=== PATIENT | male | born 1955 | race Caucasian/White ===

== ENCOUNTER 2018-11-24 16:25 | Inpatient (IN) ==
[2018-11-24 17:50] LABS: Basophils # 0.1 K/mcL (0.0-0.2); Eosinophils # 0.4 K/mcL (0.0-0.6); Hematocrit 24.7 % (37.5-50.1); Immature Granulocytes % 0.7 % (0-4); Lymphocytes # 1.8 K/mcL (0.6-4.6); Lymphocytes % 31.6 %; Mean Corpuscular HGB Conc 32.4 g/dL (31.6-35.5); Mean Corpuscular Volume 98.8 fL (83.0-100.0); Mean Platelet Volume 10.9 fL (9.4-12.4); Monocytes # 0.6 K/mcL (0.0-1.3); Monocytes % 10.3 %; Neutrophils # 2.9 K/mcL (1.6-8.9); Red Cell Distribution Width 17.9 % (11.5-14.5); Segmented Neutrophils % 50.4 %; White Blood Count 5.8 K/mcL (4.3-11.1)
[2018-11-24 17:51] LABS: Platelet Count 94 K/mcL (140-400)
--- NOTE | 2018-11-24 17:56 | Emergency Department Note ---
Disposition Clinical Impression: History of esophageal varices Cirrhosis Qualifiers: Hepatic cirrhosis type: other cirrhosis Qualified Code(s): K74.69 - Other cirrhosis of liver Anemia Qualifiers: Anemia type: unspecified type Qualified Code(s): D64.9 - Anemia, unspecified Disposition: Admitted As Inpatient Condition: Fair Time of Disposition: 19:47 Recheck wound or abnormal lab - General Chief Complaint: ED Recheck/Abnormal Lab/Rx Stated Complaint: Abnormal labs Time Seen by Provider: 11/24/18 17:08 Source: patient Mode of arrival: ambulatory Limitations: no limitations Nursing Notes Reviewed: Yes Vital Signs Reviewed: Yes - History of Present Illness HPI Narrative: 63-year-old male history of cirrhosis liver failure presents to the emergency department with low hemoglobin that is symptomatically says he felt weak and mor e tired over the last few months. He was was to have a heart catheterization done this week only got labs and she is anemic they are repeat labs he still is showing anemia so they canceled it. Primary care: Recommended he come here for further evaluation as he is anemic and there is no known source at this time. He said he is not having chest pain but is short of breath whenever he is walking and he did fail a stress test as whether setting up for the outpatient heart catheterization. He has not noticed any rectal bleeding any melena. He has not been vomiting up any blood or coughing up any blood. He said he does not have any bleeding that he knows of. Does not believe that he has bad kidney function as well. Patient otherwise has no other complaints at this time. - Related Data Home Medications Medication Instructions Recorded Confirmed Aspirin 81 mg PO DAILY 07/07/16 11/24/18 Pantoprazole Sodium [Protonix] 40 mg PO BID 07/07/16 11/24/18 Metoprolol Succinate [Toprol Xl] 25 mg PO DAILY 04/21/18 11/24/18 Rifaximin [Xifaxan] 550 mg PO BID 05/31/18 11/24/18 Loratadine [Allergy Relief] 10 mg PO DAILY 11/24/18 11/24/18 Pravastatin Sodium [Pravachol] 40 mg PO DAILY 11/24/18 11/24/18 Spironolactone [Aldactone] 100 mg PO DAILY 11/24/18 11/24/18 Allergies Allergy/AdvReac Type Severity Reaction Status Date / Time Wcsmzjj-Dhu-Bog Reductase Allergy Cramping Verified 11/24/18 16:33 Inhibitor of the [Statins] Muscles All systems ED: reviewed and negative except as stated. Review of Systems: As Per HPI Past Medical History - Past Medical History Attestation: Yes The following information was validated with the patient. Source: patient Medical history: Reports: cirrhosis, coronary artery disease, fibromyalgia, hyperlipidemia, hypertension, liver disease, renal disease Surgical history: Reports: angioplasty/stent, other Psychiatric history: Reports: no psych history - Social History Smoking Status: Current every day smoker Smokeless Tobacco Status: No Alcohol use: Reports: occasionally Drug use: Reports: none Physical Exam - General Limitations: no limitations General appearance: alert, in no apparent distress - Head Head exam: atraumatic, normocephalic, normal inspection - Eye Eye exam: Present: normal appearance, PERRL, EOMI - ENT ENT exam: normal exam, normal oropharynx, mucous membranes moist - Neck Neck exam: Present: normal inspection, full ROM, trachea midline - Chest Chest inspection: Present: normal inspection, symmetric chest wall rise - Respiratory Respiratory exam: Present: normal lung sounds bilaterally - Cardiovascular Cardiovascular exam: Present: regular rate, normal rhythm, normal heart sounds - Abdominal Exam Abdominal exam: Present: soft, Non-Tender, normal bowel sounds. Absent: tenderness, distention, guarding, rebound, rigidity - Rectal Exam Rectal exam: Present: normal inspection - Extremities Exam Extremities exam: Present: normal inspection, full ROM. Absent: tenderness, pedal edema - Back Exam Back exam: Present: normal inspection, full ROM. Absent: tenderness, CVA tenderness (R), CVA tenderness (L) - Neurological Exam Neurological exam: Present: alert, oriented X3 - Skin Skin exam: Present: warm, dry, intact, normal color Course Course Narrative: Patient presents with anemia. His symptomatic as he said he has been lightheaded as well as peaked over the past 2 months. He is scheduled to have a heart catheter here soon due to his feeling of a stress test and worsening shortness of breath and chest pain on exertion. So there is been no changes that she is having continued. There is noticeable rectal bleeding when I examined him. We will get CBC, BMP, type and screen as well as PT/INR. We will also get a Hemoccult. Patient okay with this plan. Disposition pending results Vital Signs Temperature 98.0 F 11/24/18 16:29 Pulse Rate 72 11/24/18 16:29 Respiratory Rate 16 11/24/18 16:29 Blood Pressure 128/60 11/24/18 16:29 O2 Sat by Pulse Oximetry 99 11/24/18 16:29 Temperature 98.4 F 11/24/18 19:39 Pulse Rate 79 11/24/18 19:39 Respiratory Rate 16 11/24/18 19:39 Blood Pressure 111/68 11/24/18 19:39 O2 Sat by Pulse Oximetry 100 11/24/18 18:53 Oxygen Delivery Oxygen Delivery Room Air Recheck wound or abnormal lab - MDM Narrative Medical decision making narrative: Patient here with anemia. He actually went up from 7.8-8.0 from yesterday for his hemoglobin. He was positive on his Hemoccult. He has some type of GI bleed at this time. Does have history of varices but has never bled from them. 2018 they did do a EGD which did show varices but no active bleeding. Did give patient Protonix. Patient has been symptomatic as he says he is lightheaded and feels weak. Bielen is negative for showing bleeding at this time. I spoke with the on-call GI specialist Dr. Fry who states that he would see him in consultation within the hospital and will plan for EGD tomorrow did recommend giving one unit of blood which was ordered here today per also given Protonix as well as Rocephin for possible SBP. Patient okay with this plan. He do not think he is actively bleeding at this time so no octreotide was given. Patient is admitted to the hospitalist in stable condition I spoke with Dr. Blair who agreed to admit the patient. - Medical Records Medical records reviewed: Yes I reviewed the patient's medical records. - Lab Data Lab results reviewed: Yes I reviewed the patient's lab results. Result diagrams: 11/24/18 17:30 11/24/18 17:30 Lab Results 11/24/18 11/24/18 11/24/18 Range/Units 17:30 17:30 17:30 WBC 5.8 (4.3-11.1) K/mcL RBC 2.50 L (4.19-5.50) M/mcL Hgb 8.0 L (12.9-16.9) g/dL Hct 24.7 L (37.5-50.1) % MCV 98.8 (83.0-100.0) fL MCH 32.0 (28.0-33.3) pg MCHC 32.4 (31.6-35.5) g/dL RDW 17.9 H (11.5-14.5) % Plt Count 94 L (140-400) K/mcL MPV 10.9 (9.4-12.4) fL Immature Gran % 0.7 (0-4) % Seg Neutrophils % 50.4 % Lymphocytes % 31.6 % Monocytes % 10.3 % Eosinophils % 6.0 % Basophils % 1.0 % Neutrophils # 2.9 (1.6-8.9) K/mcL Lymphocytes # 1.8 (0.6-4.6) K/mcL Monocytes # 0.6 (0.0-1.3) K/mcL Eosinophils # 0.4 (0.0-0.6) K/mcL Basophils # 0.1 (0.0-0.2) K/mcL PT 17.5 H (9.4-12.1) Seconds INR 1.5 Sodium 137 (136-145) mEq/L Potassium 3.8 (3.5-5.1) mEq/L Chloride 112 H (98-107) mEq/L Carbon Dioxide 20 L (23-29) mEq/L BUN 9 (8-23) mg/dL Creatinine 1.28 (0.70-1.30) mg/dL Est GFR ( Amer) > 60 (> 60) Est GFR (Non-Af Amer) 57 L (> 60) BUN/Creatinine Ratio 7 (6-26) Glucose 137 H (70-105) mg/dL Calculated Osmolality 285 (280-300) Calcium 8.2 L (8.6-10.3) mg/dL Stool Occult Bld Scrn (Negative) Blood Type Antibody Screen Crossmatch 11/24/18 11/24/18 Range/Units 17:30 17:35 WBC (4.3-11.1) K/mcL RBC (4.19-5.50) M/mcL Hgb (12.9-16.9) g/dL Hct (37.5-50.1) % MCV (83.0-100.0) fL MCH (28.0-33.3) pg MCHC (31.6-35.5) g/dL RDW (11.5-14.5) % Plt Count (140-400) K/mcL MPV (9.4-12.4) fL Immature Gran % (0-4) % Seg Neutrophils % % Lymphocytes % % Monocytes % % Eosinophils % % Basophils % % Neutrophils # (1.6-8.9) K/mcL Lymphocytes # (0.6-4.6) K/mcL Monocytes # (0.0-1.3) K/mcL Eosinophils # (0.0-0.6) K/mcL Basophils # (0.0-0.2) K/mcL PT (9.4-12.1) Seconds INR Sodium (136-145) mEq/L Potassium (3.5-5.1) mEq/L Chloride (98-107) mEq/L Carbon Dioxide (23-29) mEq/L BUN (8-23) mg/dL Creatinine (0.70-1.30) mg/dL Est GFR ( Amer) (> 60) Est GFR (Non-Af Amer) (> 60) BUN/Creatinine Ratio (6-26) Glucose (70-105) mg/dL Calculated Osmolality (280-300) Calcium (8.6-10.3) mg/dL Stool Occult Bld Scrn Positive A (Negative) Blood Type O NEGATIVE Antibody Screen NEGATIVE Crossmatch See Detail Attestation Statement - Attestation Attestation: I have seen this patient with the resident physician, I have personally evaluated this patient. I had reviewed the chart and document dictation by the resident physician and aM in agreement with the information documented by the resident physician. Please see documentation by the resident physician for complete chart including past medical history, family medical history, review of systems, current history and physical and laboratory and imaging studies. I was present for all procedures, provided direct supervision for all procedures, was present for the entirety of all procedures and provided direct guidance during the procedures. Please see documentation by the resident phy sician for any procedures performed. I have reviewed all interpretations of EKGs, and reviewed all EKGs performed on patient's as well. I have also reviewed reports of imaging as provided by radiology.
[2018-11-24 17:57] LABS: INR 1.5; Prothrombin Time 17.5 Seconds (9.4-12.1)
[2018-11-24 18:03] LABS: BUN/Creatinine Ratio 7 (6-26); Blood Urea Nitrogen 9 mg/dL (8-23); Calcium 8.2 mg/dL (8.6-10.3); Carbon Dioxide 20 mEq/L (23-29); Chloride 112 mEq/L (98-107); Glucose 137 mg/dL (70-105); Osmolality,Calculated 285 (280-300); Potassium 3.8 mEq/L (3.5-5.1); Sodium 137 mEq/L (136-145); eGFR For African Americans > 60 (> 60); eGFR For Non-African Americans 57 (> 60)
[2018-11-24] MEDS ORDERED: Pantoprazole 40 MG VIAL IVP ONE (18:10)
[2018-11-24] MEDS ORDERED: cefTRIAXone 1,000 MG in Water for inj. (sterile) 10 ML IVP ONE (18:27)
--- NOTE | 2018-11-24 18:56 | Emergency Department Note ---
Disposition Clinical Impression: Cirrhosis, Anemia, History of esophageal varices Disposition: Admitted As Inpatient Condition: Fair Forms: ED Satisfaction Letter Time of Disposition: 18:57 General Adult HPI - General Chief complaint: ED Recheck/Abnormal Lab/Rx Stated complaint: Abnormal labs Time Seen by Provider: 11/24/18 17:08 Source: patient Mode of arrival: ambulatory Limitations: no limitations Nursing Notes Reviewed: Yes Vital Signs Reviewed: Yes - History of Present Illness Pain Scale: 0 - Related Data Home Medications Medication Instructions Recorded Confirmed Aspirin 81 mg PO DAILY 07/07/16 10/12/18 Pantoprazole Sodium [Protonix] 40 mg PO BID 07/07/16 10/12/18 Metoprolol Succinate [Toprol Xl] 25 mg PO DAILY 04/21/18 10/12/18 Cetirizine HCl [24Hour Allergy] 10 mg PO DAILY 04/22/18 10/12/18 Rifaximin [Xifaxan] 550 mg PO BID 05/31/18 10/12/18 Previous Rx's Medication Instructions Recorded Furosemide [Lasix] 20 mg PO DAILY #30 tablet 12/02/17 Allergies Allergy/AdvReac Type Severity Reaction Status Date / Time Hslthbb-Udc-Qqf Reductase Allergy Cramping Verified 11/24/18 16:33 Inhibitor of the [Statins] Muscles Past Medical History - Past Medical History Medical history: Reports: cirrhosis, coronary artery disease, fibromyalgia, hyperlipidemia, hypertension, liver disease, renal disease Surgical history: Reports: angioplasty/stent, other Psychiatric history: Reports: no psych history - Social History Smoking Status: Current every day smoker Smokeless Tobacco Status: No Alcohol use: Reports: occasionally Drug use: Reports: none Physical Exam - General Limitations: no limitations General appearance: alert, in no apparent distress Course Vital Signs Temperature 98.0 F 11/24/18 16:29 Pulse Rate 72 11/24/18 16:29 Respiratory Rate 16 11/24/18 16:29 Blood Pressure 128/60 11/24/18 16:29 O2 Sat by Pulse Oximetry 99 11/24/18 16:29 Temperature 98.0 F 11/24/18 16:29 Pulse Rate 72 11/24/18 16:29 Respiratory Rate 16 11/24/18 16:29 Blood Pressure 128/60 11/24/18 16:29 O2 Sat by Pulse Oximetry 99 11/24/18 16:29 Oxygen Delivery Oxygen Delivery Room Air Medical Decision Making - Lab Data Result diagrams: 11/24/18 17:30 11/24/18 17:30 Lab Results 11/24/18 11/24/18 11/24/18 Range/Units 17:30 17:30 17:30 WBC 5.8 (4.3-11.1) K/mcL RBC 2.50 L (4.19-5.50) M/mcL Hgb 8.0 L (12.9-16.9) g/dL Hct 24.7 L (37.5-50.1) % MCV 98.8 (83.0-100.0) fL MCH 32.0 (28.0-33.3) pg MCHC 32.4 (31.6-35.5) g/dL RDW 17.9 H (11.5-14.5) % Plt Count 94 L (140-400) K/mcL MPV 10.9 (9.4-12.4) fL Immature Gran % 0.7 (0-4) % Seg Neutrophils % 50.4 % Lymphocytes % 31.6 % Monocytes % 10.3 % Eosinophils % 6.0 % Basophils % 1.0 % Neutrophils # 2.9 (1.6-8.9) K/mcL Lymphocytes # 1.8 (0.6-4.6) K/mcL Monocytes # 0.6 (0.0-1.3) K/mcL Eosinophils # 0.4 (0.0-0.6) K/mcL Basophils # 0.1 (0.0-0.2) K/mcL PT 17.5 H (9.4-12.1) Seconds INR 1.5 Sodium 137 (136-145) mEq/L Potassium 3.8 (3.5-5.1) mEq/L Chloride 112 H (98-107) mEq/L Carbon Dioxide 20 L (23-29) mEq/L BUN 9 (8-23) mg/dL Creatinine 1.28 (0.70-1.30) mg/dL Est GFR ( Amer) > 60 (> 60) Est GFR (Non-Af Amer) 57 L (> 60) BUN/Creatinine Ratio 7 (6-26) Glucose 137 H (70-105) mg/dL Calculated Osmolality 285 (280-300) Calcium 8.2 L (8.6-10.3) mg/dL Stool Occult Bld Scrn (Negative) Blood Type Antibody Screen Crossmatch 11/24/18 11/24/18 Range/Units 17:30 17:35 WBC (4.3-11.1) K/mcL RBC (4.19-5.50) M/mcL Hgb (12.9-16.9) g/dL Hct (37.5-50.1) % MCV (83.0-100.0) fL MCH (28.0-33.3) pg MCHC (31.6-35.5) g/dL RDW (11.5-14.5) % Plt Count (140-400) K/mcL MPV (9.4-12.4) fL Immature Gran % (0-4) % Seg Neutrophils % % Lymphocytes % % Monocytes % % Eosinophils % % Basophils % % Neutrophils # (1.6-8.9) K/mcL Lymphocytes # (0.6-4.6) K/mcL Monocytes # (0.0-1.3) K/mcL Eosinophils # (0.0-0.6) K/mcL Basophils # (0.0-0.2) K/mcL PT (9.4-12.1) Seconds INR Sodium (136-145) mEq/L Potassium (3.5-5.1) mEq/L Chloride (98-107) mEq/L Carbon Dioxide (23-29) mEq/L BUN (8-23) mg/dL Creatinine (0.70-1.30) mg/dL Est GFR ( Amer) (> 60) Est GFR (Non-Af Amer) (> 60) BUN/Creatinine Ratio (6-26) Glucose (70-105) mg/dL Calculated Osmolality (280-300) Calcium (8.6-10.3) mg/dL Stool Occult Bld Scrn Positive A (Negative) Blood Type O NEGATIVE Antibody Screen NEGATIVE Crossmatch See Detail Attestation Statement - Attestation Attestation: I have seen this patient with the resident physician, I have personally evaluated this patient. I had reviewed the chart and document dictation by the resident physician and aM in agreement with the information documented by the resident physician. Please see documentation by the resident physician for complete chart including past medical history, family medical history, review of systems, current history and physical and laboratory and imaging studies. I was present for all procedures, provided direct supervision for all procedures, was present for the entirety of all procedures and provided direct guidance during the procedures. Please see documentation by the resident physician for any procedures performed. I have reviewed all interpretations of EKGs, and reviewed all EKGs performed on patient's as well. I have also reviewed reports of imaging as provided by radiology. Patient had presented to the emergency department because he had outpatient labs that showed that he had progressive anemia. He does have a history of chronic liver issues, as well as a history of ulcers in his stomach he does not believe he has ever had esophageal varices he states they have had to inject epinephrine into ulcers before but does not believe he has ever had banding. 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 The patient states his last scope was about a year ago. He has not noticed any black or bloody stool he does endorse some exertional fatigue and exertional s hortness of breath, and is actually supposed to be getting a cardiac catheterization set up. Patient denies any abdominal pain denies fevers or chills denies any other acute concerns. On physical examination he is slightly pale in appearance but no acute distress hemodynamically within acceptable limits. Hemoglobin was 8.0, baseline is usually between 9 and 11, outpatient showed 7.8. Remainder of the laboratory studies were within acceptable limits no elevated be when. Hemoccult testing was positive although normal colored brown stool no melena no gross blood he has had no hematemesis. He was given 1 dose of IV proton pump inhibitor we did review his chart from his most recent scope from about a year ago he did have esophageal varices although has never according to the chart review needed banding, I do not suspect acute variceal bleed as he has a normal BUS and he is hemodynamically within acceptable limits he has no hematemesis and no melena, no indication for octre otide at this time has he does have a document history of varices, he was given one time dose of Rocephin. We spoke with Dr. Fry, this patient's GI doctor, who is comfortable with this patient being admitted he will scope him in the morning. Patient will be admitted to the hospital for further evaluation and management he does recommend initiating blood replacement here in the emergency department as well. Patient was admitted for further management. Total critical care time as provided by myself excluding procedures performed was 30 minutes
[2018-11-24] MEDS ORDERED: 0.9 % Sodium Chloride 500 ML ONE (19:28)
[2018-11-24] MEDS ORDERED: D5% in Lactated Ringers 1,000 ML IVC SCH ×2 (20:45→22:15)
--- NOTE | 2018-11-24 21:32 | Internal Med History&Physical ---
Date of Encounter: 11/24/18 Time of Encounter: 21:29 Internal Medicine - H&P: HPI Chief complaint: fatigue Admitted From: Home Plans for Post Hospital Care: Home History of present illness: Aubrey Gillespie is a 63-year-old man with liver cirrhosis of unclear etiology complicated by portal hypertension, esophageal varices and splenomegaly, hypertension, hyperlipidemia and coronary artery disease. He presents emergency room on referral by his PCP due to lowering hemoglobin levels. He also reported increasing fatigue, weakness and shortness of breath but has not seen overt bleeding. He denies rectal bleeding, melena and hematemesis. Repeat blood work in the ER showed a hemoglobin of 8.0 which is increased from a level of 7.8 yesterday. Stool occult blood test was positive. GI was contacted who recommended that the patient receive a unit of blood and be admitted to undergo endoscopic evaluation in the morning. Her time of my assessment he was lying comfortably in bed in no acute distress reporting feeling well and without complaints. He denies abdominal pain and chest pain. Vitals: Reviewed General: Obese white man lying comfortably in bed in no acute distress. Skin: Warm and dry. HEENT: Moist mucous membranes. + conjunctivae pallor. Neck: No lymphadenopathy. No JVD. No carotid bruits. No palpable thyroid. Chest: Normal thoracic expansion. Normal breath sounds. Clear to auscultation. Heart: Normal S1 & S2; rhythmic. No rubs or murmurs. Abdomen: Lightly distended but soft and nontender to palpation with no peritoneal reaction. Extremities: 2+ pitting pedal edema. Neurological: Awake, alert and oriented to person, place and time. No focal deficits. Psych: Affect appropriate. Assessment/Plan 1. Anemia secondary to GI bleed: Clinically and hemodynamically stable. He has received 1u pRBC and his Hgb will remain above 8.0 which is adequate for him. Will recheck in the morning to ensure stability. 2. GI bleed: No overt bleeding noted. It appears to be chronic and slow seeing how well compensated he has been and not far from his baseline. He has esophageal varices but has not bled form this. He may have other potential sources and will undergo endoscopic evaluation by GI in the morning. Will keep NPO past midnight and place on PPI BID. 3. Liver cirrhosis: He was unable to tolerate furosemide as it made him hypotensive and has only been on spironolactone which has not helped his edematous state. His home medications can be resumed once cleared for PO. 4. CAD: Seen to have a positive stress test and previously had a canceled cath and is rescheduled for this Thursday. Will consult cardiology to assess if it can be done during this admission after medical optimization. Past Med Surg Social Fam HX - Past Medical History Medical history: cirrhosis, coronary artery disease, fibromyalgia, hyperlipidemia, hypertension, liver disease, renal disease Additional medical history: CAD Psychiatric history: no psych history - Past Surgical History Surgical History: angioplasty/stent, other Additional surgical history: EGD, heart cath with stents. - Social History Smoking Status: Current every day smoker Smokeless Tobacco Status: No Alcohol use: occasionally Drug use: none Internal Medicine - H&P: Meds Aspirin 81 mg PO DAILY 07/07/16 [History] Pantoprazole Sodium [Protonix] 40 mg PO BID 07/07/16 [History] Metoprolol Succinate [Toprol Xl] 25 mg PO DAILY 04/21/18 [History] Rifaximin [Xifaxan] 550 mg PO BID 05/31/18 [History] Loratadine [Allergy Relief] 10 mg PO DAILY 11/24/18 [History] Pravastatin Sodium [Pravachol] 40 mg PO DAILY 11/24/18 [History] Spironolactone [Aldactone] 100 mg PO DAILY 11/24/18 [History] Allergy/AdvReac Type Severity Reaction Status Date / Time Qeqhxwv-Iad-Gyk Reductase Allergy Cramping Verified 11/24/18 16:33 Inhibitor of the [Statins] Muscles All Systems PM: A 10-system review of systems was performed and is negative for pertinent findings except as documented above in the HPI. Family history reviewed and foun d non-contributory. - Constitutional Vitals: Temp Pulse Resp BP Pulse Ox 98.4 F 80 17 116/64 100 11/24/18 20:54 11/24/18 20:54 11/24/18 20:54 11/24/18 20:54 11/24/18 20:54 Exam: . Internal Med - H&P Results - Labs CBC & Chem 7: 11/24/18 17:30 11/24/18 17:30 Labs: Short CBC 11/24/18 Range/Units 17:30 WBC 5.8 (4.3-11.1) K/mcL Hgb 8.0 L (12.9-16.9) g/dL Hct 24.7 L (37.5-50.1) % Plt Count 94 L (140-400) K/mcL Neutrophils # 2.9 (1.6-8.9) K/mcL BMP 11/24/18 17:30 Sodium 137 Potassium 3.8 Chloride 112 H Carbon Dioxide 20 L BUN 9 Creatinine 1.28 Glucose 137 H Calcium 8.2 L - Time Spent With Patient Total time spent is greater than 50% in coordination of care (as documented) at patient's floor/unit and/or counseling patient: Greater than 35 minutes
[2018-11-25 05:16] LABS: Basophils % 1.1 %; Mean Corpuscular HGB Conc 32.9 g/dL (31.6-35.5)
[2018-11-25 05:18] LABS: Basophils # 0.1 K/mcL (0.0-0.2); Eosinophils # 0.3 K/mcL (0.0-0.6); Eosinophils % 6.3 %; Hematocrit 23.7 % (37.5-50.1); Hemoglobin 7.8 g/dL (12.9-16.9); Immature Granulocytes % 0.6 % (0-4); Immature Platelets 2.8 % (1.1-6.1); Lymphocytes # 1.6 K/mcL (0.6-4.6); Lymphocytes % 35.1 %; Mean Corpuscular Hemoglobin 32.6 pg (28.0-33.3); Mean Corpuscular Volume 99.2 fL (83.0-100.0); Mean Platelet Volume 11.1 fL (9.4-12.4); Monocytes # 0.6 K/mcL (0.0-1.3); Monocytes % 13.4 %; Red Blood Count 2.39 M/mcL (4.19-5.50); Red Cell Distribution Width 17.8 % (11.5-14.5); Segmented Neutrophils % 43.5 %; White Blood Count 4.6 K/mcL (4.3-11.1)
[2018-11-25] MEDS: Pantoprazole 40 MG VIAL IVP SCH ×2 (05:21→17:01)
[2018-11-25 05:37] LABS: BUN/Creatinine Ratio 6 (6-26); Blood Urea Nitrogen 9 mg/dL (8-23); Carbon Dioxide 21 mEq/L (23-29); Chloride 111 mEq/L (98-107); Glucose 124 mg/dL (70-105); Osmolality,Calculated 290 (280-300); Platelet Count 74 K/mcL (140-400); Potassium 3.9 mEq/L (3.5-5.1); Sodium 140 mEq/L (136-145); eGFR For African Americans > 60 (> 60); eGFR For Non-African Americans 51 (> 60)
--- NOTE | 2018-11-25 08:08 | Event Note ---
Date of Encounter: 11/25/18 Time of Encounter: 08:04 - Cardiology Event Note Cardiology aware that patient is admitted for anemia. Out-pt LHC ordered for abnormal stress test. Noted GI consulted. Patient will need GI evaluation before we can determine if LHC can be done. No urgent need for LHC. Please call with questions.
[2018-11-25 09:01] LABS: Alanine Aminotransferase 10 Units/L (7-52); Albumin 2.2 g/dL (3.5-5.7); Albumin/Globulin Ratio 0.9 (1.1-2.2); Alkaline Phosphatase 143 Units/L (34-104); Aspartate Amino Transferase 29 Units/L (13-39); Bilirubin,Direct 1.4 mg/dL (0.0-0.2); Bilirubin,Indirect 2.6 mg/dL (0.0-1.2); Globulin 2.5 g/dL (2.4-3.5); Total Protein 4.7 g/dL (6.4-8.9)
[2018-11-25] MEDS ORDERED: Propofol 500 MG/50 ML INFUS..BTL ONE (12:53)
[2018-11-25] MEDS ORDERED: Lidocaine -MPF 2% 2 ML VIAL ONE (12:53)
--- NOTE | 2018-11-25 13:04 | Gastroenterology Consult Note ---
Date of Encounter: 11/25/18 Time of Encounter: 09:30 (0) - Assessment and plan (1) Non-alcoholic cirrhosis Current Visit: No Status: Chronic Assessment and plan: MELD-Na 19 and Child-Bonner class C. AFP 9 on 05/08/2017. Recommend 2-4 bowel movements per day, use lactulose as needed. Start Rifaximin 550 mg twice a day. Check AFP and liver ultrasound. Complete EGD. Lifestyle Changes: 1. Total abstinence from alcohol including social drinking. 2. No smoking. 3. Gradual loss of weight. 4. Drink at least 3 cups of coffee due to its antioxidant effects in the liver, it reduces risk of HCC and advance fibrosis. 5. If needed, use less than 2 g/day of Tylenol (in divided doses). 6. Vaccination for Hep A, B, Pneumococcus if not already received and yearly influenza vaccination by PCP. 7. Avoid NSAIDS as can cause kidney damage. 8. Avoid benzodiazepines and other sedatives such as anti-histamines, narcotics etc. as can cause encephalopathy or confusion. 9. Take a late carbohydrate meal supplement as it reduces glucose production from protein breakdown and thus improves nutrition. 10. In cirrhosis, statins are safe to use and also improve portal hypertension and decrease risk of HCC. 11. Screening: Hepatocellular cancer screening: US of liver and AFP every 6 months (2) Anemia Current Visit: Yes Status: Acute Assessment and plan: Hgb 7.8 on 11/23, 8 on admission, and 7.8 this AM. Continue to monitor CBC daily and transfuse PRBC as needed. Plan for EGD today to r/o esophagitis, gastritis, duodenitis, PUD, MW tear, or AVM. Keep patient NPO. Qualifiers: Anemia type: unspecified type Qualified Code(s): D64.9 - Anemia, unspecif ied (3) History of esophageal varices Current Visit: Yes Status: Acute - Time Spent With Patient Total time spent is greater than 50% in coordination of care (as documented) at patient's floor/unit and/or counseling patient: GI History of Present Illness - Data of Consult Patient: known to practice within the last 3 years Consult date: 11/25/18 Requesting Physician: Yana Montes De Oca MD - Consult Narrative Reason for consult: GI bleed, hx varices, cirrhosis History of present illness: Mr. Gillespie is a 63 year old male with PMHx of cirrhosis, CAD, fibromyalgia, HLD, HTN, who was sent to the ED by his PCP due to anemia with Hgb 7.8 on 11/23. He complains of fatigue and shortness of breath. He denies any melena, hematochezia, hematemesis, or coffee-ground emesis. On admission, Hgb 8 with MCV 98.8 and today Hgb 7.8 with MCV 99.2. Fecal occult blood test positive on admission. Patient with histoyr of cirrhosis. He denies alcohol use. No confusion. He reports having 2 BM daily. Procedures: EGD 08/24/2017 Dr. Fry: Concern for Macario's esophagus biopsies negative, chronic gastritis, grade 1 esophageal varices. NSAIDs: ASA Anticoagulation: None Past Med Surg Social Fam HX - Past Medical History Medical history: cirrhosis, coronary artery disease, fibromyalgia, hyperlipidemia, hypertension, liver disease, renal disease Additional medical history: CAD Psychiatric history: no psych history - Past Surgical History Surgical History: angioplasty/stent, other Additional surgical history: EGD, heart cath with stents x3. - Social History Smoking Status: Current every day smoker Packs per day: 1/2 Smokeless Tobacco Status: No Alcohol use: occasionally Drug use: none - Gastrointestinal Gastrointestinal: Present: as per HPI - Constitutional Constitutional: as per HPI - EENT Eyes: as per HPI Ears: Present: as per HPI Nose, mouth and throat: Present: as per HPI - Cardiovascular Cardiovascular ROS: Present: as per HPI - Respiratory Respiratory IM: Present: as per HPI - Genitourinary Genitourinary: Absent: change in color, Urinary frequency - Neurological ROS Neurological GI: Present: as per HPI - Hematologic/Lymphatic Hematologic/Lymphatic pediatric: Present: as per HPI - Musculoskeletal Musculoskeletal ROS GI: Present: as per HPI - Integumentary Integumentary GI: Present: as per HPI - Psychiatric ROS Psychiatric GI: Present: as per HPI - Endocrine Endocrine IM: Present: as per HPI - Constitutional Vitals: Temp Pulse Resp BP Pulse Ox 98.2 F 81 16 102/66 99 11/25/18 10:51 11/25/18 10:51 11/25/18 10:51 11/25/18 10:51 11/25/18 10:51 General appearance: Present: cooperative, A&O X 3, no acute distress, answers questions appropriately - Head Head exam: Present: atraumatic, normocephalic - Eye Eye exam: Present: normal appearance, sclera anicteric - ENT ENT exam: Present: mucous membranes dry - Neck Neck exam general surgery: Present: normal inspection, trachea midline - Respiratory Respiratory exam: Present: CTAB. Absent: rales, rhonchi, wheezes - Cardiovascular Cardiovascular exam: Present: RRR, +S1, +S2 - GI/Abdominal GI/Abdominal exam: Present: soft, no peritoneal signs. Absent: distended, firm, guarding, tenderness - Rectal Rectal exam: Present: deferred - Extremities Exam Extremities exam: Present: warm - Neurological Exam Neurological exam: Present: no focal deficits - Psychiatric Psychiatric exam: Present: normal affect, normal mood - Skin Skin exam: Present: dry, intact, normal color, warm Results - Labs CBC & Chem 7: 11/25/18 04:51 11/25/18 04:51 Labs: Last Result 11/25/18 04:51 Calcium 8.0 L Entire Visit 11/25/18 11/25/18 04:51 04:51 Hgb 7.8 L Hct 23.7 L Total Bilirubin 4.0 H AST 29 ALT 10 - ABG ABG results: PT/INR, D-dimer PT 17.5 Seconds (9.4-12.1) H 11/24/18 17:30 Consult Discharge Plan - Plan Referrals: Afshan Olson DO [Primary Care Provider] -
--- NOTE | 2018-11-25 13:13 | Anesthesia Evaluation PreOp ---
Date of Encounter: 11/25/18 Time of Encounter: 14:00 - Past History Planned Operation: EGD Cardiac History: AL, HTN, Hyperlipidemia, Cardiac Stent (stentx 3 in 2004) Pulmonary History: Smoker (45 years), Snore TECHNOLOGY DIRECTOR History: Denies Any Significant HX Other Medical History: Hepatic (cirrhosis), Renal, Diabetes Type II (borderline), GERD Anesthesia History: No Prior Anesthetic Complications, Past Anesthesia Alcohol Use: occasionally Drug use: none Medications and Allergies Aspirin 81 mg PO DAILY 07/07/16 [History] Pantoprazole Sodium [Protonix] 40 mg PO BID 07/07/16 [History] Metoprolol Succinate [Toprol Xl] 25 mg PO DAILY 04/21/18 [History] Rifaximin [Xifaxan] 550 mg PO BID 05/31/18 [History] Loratadine [Allergy Relief] 10 mg PO DAILY 11/24/18 [History] Pravastatin Sodium [Pravachol] 40 mg PO DAILY 11/24/18 [History] Spironolactone [Aldactone] 100 mg PO DAILY 11/24/18 [History] Allergy/AdvReac Type Severity Reaction Status Date / Time Loxxlwq-Hwq-Emb Reductase Allergy Cramping Verified 11/24/18 16:33 Inhibitor of the [Statins] Muscles - Meds/Allergy Pre-op Review Medications Reviewed: Yes Allergies Reviewed: Yes Beta Blockers on Current Med List: Yes If Beta Blockers taken, Date/Time (Last Dose taken): 11/23/2018 Anesthesia Results - Labs 11/25/18 04:51 11/25/18 04:51 - Imaging EKG: report reviewed (01/07/2018 Sinus rhythm Limb lead reversal suggested Recommend repeat ECG) Additional studies: 10/22/2018 Stress Impression: Perfusion imaging was positive for infarct. There is a small sized fixed perfusion defect which is moderate in intensity in the basal inferior segment, no defininte ischemia. Exercise ECG was positive for ischemia. Exercise capacity was fair. Normal hemodynamic response. Patient had no chest pain with stress. Gated EF = 66%. The LV is dilated. There is no evidence of TID. Ordering physician notified by eCW 08/03/2018 Echo Impressions: Normal LV function with concentric LVH. Mild MR and TR Dilated LA and RA Anesthesia Exam Vital Signs/O2 Sat, Most Current Temp Pulse Resp BP Pulse Ox 98.2 F 81 16 102/66 99 11/25/18 10:51 11/25/18 10:51 11/25/18 10:51 11/25/18 10:51 11/25/18 10:51 Height: 5'10"/1.78m Weight: 229 lbs/104 kg NPO (# of Hours): 8 Pain Scale: 0 Pain Scale Used: Numeric (1 - 10) - HEENT Pupil (Motor): EOMI Mallampati: II Teeth: Edentulous Oral Opening: Greater than 3 - TECHNOLOGY DIRECTOR LOC: Oriented TECHNOLOGY DIRECTOR Motor: Normal RUE, Normal LUE, Normal RLE, Normal LLE, Normal Face TECHNOLOGY DIRECTOR Sensory: Normal: RUE, LUE, RLE, LLE, Face - Cardiac Rhythm: Regular Murmur: None - Pulmonary Breath Sounds: bilateral Clear Respiratory Effort: Symmetrical Anesthesia Assess/Plan ASA Score: 4 Level of consciousness: Cooperative, Oriented, Tranquil Anesthetic Plan: MAC Monitoring Plan: Standard Monitors
[2018-11-25] MEDS ORDERED: 0.9 % Sodium Chloride 500 ML IVC SCH (14:00)
--- NOTE | 2018-11-25 15:31 | Internal Med Progress Note ---
Hospitalist Progress Note - Encounter Date of Encounter: 11/25/18 Time of Encounter: 15:00 - Subjective Interval History: No acute events. Patient waiting for endoscopy. He has no complainrs. Denies chest pain and SOB. - Exam Vitals: Temp Pulse Resp BP Pulse Ox 36.8 C 82 16 151/66 100 11/25/18 13:58 11/25/18 13:58 11/25/18 13:58 11/25/18 13:58 11/25/18 13:58 Exam: Patient not in distress. Moist oral mucosa. Lung paredes clear on auscultation Heart rate normal with regular rhythm, no murmurs Abdomens soft and nontender No pedal edema - Assessment and Plan (1) Gastrointestinal bleed Current Visit: Yes Status: Acute (2) Anemia Current Visit: Yes Status: Acute (3) Cirrhosis Current Visit: Yes Status: Acute (4) CAD (coronary artery disease) Current Visit: No Status: Chronic - Summary of Assessment and Plan Summary of Assessment and Plan: Aubrey Gillespie is a 63-year-old man with liver cirrhosis of unclear etiology complicated by portal hypertension, esophageal varices and splenomegaly, hypertension, hyperlipidemia and coronary artery disease. He presents emergency room on referral by his PCP due to lowering hemoglobin levels. He also reported increasing fatigue, weakness and shortness of breath but has not seen overt bleeding. He denies rectal bleeding, melena and hematemesis. Repeat blood work in the ER showed a hemoglobin of 8.0 which is increased from a level of 7.8 yesterday. Stool occult blood test was positive. GI was contacted who recommended that the patient receive a unit of blood and be admitted to undergo endoscopic evaluation in the morning. Her time of my asses sment he was lying comfortably in bed in no acute distress reporting feeling well and without complaints. He denies abdominal pain and chest pain. Assessment/Plan 1. Anemia secondary to GI bleed: Clinically and hemodynamically stable. He has received 1u pRBC and his Hgb will remain above 8.0 which is adequate for him. Will recheck in the morning to ensure stability. 2. GI bleed: No overt bleeding noted. It appears to be chronic and slow seeing how well compensated he has been and not far from his baseline. He has esophageal varices but has not bled form this. He may have other potential sources and will undergo endoscopic evaluation by GI in the morning. Will keep NPO past midnight and place on PPI BID. 3. Liver cirrhosis: He was unable to tolerate furosemide as it made him hypotensive and has only been on spironolactone which has not helped his edematous state. His home medications can be resumed once cleared for PO. 4. CAD: Seen to have a positive stress test and previously had a canceled cath and is rescheduled for this Thursday. Will consult cardiology to assess if it can be done during this admission after medical optimization. - Time Spent with Patient Total time spent is greater than 50% in coordination of care (as documented) at patient's floor/unit and/or counseling patient: Internal Medicine: Result - Labs CBC & Chem 7: 11/25/18 04:51 11/25/18 04:51 Labs: Short CBC 11/24/18 11/25/18 Range/Units 17:30 04:51 WBC 5.8 4.6 (4.3-11.1) K/mcL Hgb 8.0 L 7.8 L (12.9-16.9) g/dL Hct 24.7 L 23.7 L (37.5-50.1) % Plt Count 94 L 74 L (140-400) K/mcL Neutrophils # 2.9 2.0 (1.6-8.9) K/mcL BMP 11/24/18 11/25/18 17:30 04:51 Sodium 137 140 Potassium 3.8 3.9 Chloride 112 H 111 H Carbon Dioxide 20 L 21 L BUN 9 9 Creatinine 1.28 1.41 H Glucose 137 H 124 H Calcium 8.2 L 8.0 L Liver Function 11/25/18 Range/Units 04:51 Total Bilirubin 4.0 H (0.3-1.0) mg/dL Direct Bilirubin 1.4 H (0.0-0.2) mg/dL AST 29 (13-39) Units/L ALT 10 (7-52) Units/L Alkaline Phosphatase 143 H (34-104) Units/L Albumin 2.2 L (3.5-5.7) g/dL - ABG Interpretation ABG results: PT/INR, D-dimer PT 17.5 Seconds (9.4-12.1) H 11/24/18 17:30 Consult Discharge Plan - Plan Referrals: Afshan Olson, DO [Primary Care Provider] - (2) Anemia Qualifiers: Anemia type: unspecified type Qualified Code(s): D64.9 - Anemia, unspecified (3) Cirrhosis Qualifiers: Hepatic cirrhosis type: other cirrhosis Qualified Code(s): K74.69 - Other cirrhosis of liver (4) CAD (coronary artery disease) Qualifiers: Coronary Disease-Associated Artery/Lesion type: unspecified vessel or lesion type [place] vs. transplanted heart: unspecified whether [place] or transplanted heart Associated angina: with unspecified angina Qualified Code(s): I25.119 - Atherosclerotic heart disease of [place] coronary artery with unspecified angina pectoris
[2018-11-26] MEDS: Pantoprazole 40 MG VIAL IVP SCH (05:32)
[2018-11-26 05:37] LABS: Immature Granulocytes % 0.4 % (0-4); Mean Platelet Volume 11.4 fL (9.4-12.4)
[2018-11-26 05:38] LABS: Basophils # 0.1 K/mcL (0.0-0.2); Basophils % 1.3 %; Eosinophils # 0.2 K/mcL (0.0-0.6); Hematocrit 23.9 % (37.5-50.1); Immature Platelets 2.9 % (1.1-6.1); Lymphocytes # 1.6 K/mcL (0.6-4.6); Lymphocytes % 32.6 %; Mean Corpuscular HGB Conc 33.5 g/dL (31.6-35.5); Mean Corpuscular Hemoglobin 32.7 pg (28.0-33.3); Mean Corpuscular Volume 97.6 fL (83.0-100.0); Monocytes # 0.6 K/mcL (0.0-1.3); Monocytes % 11.6 %; Red Blood Count 2.45 M/mcL (4.19-5.50); Red Cell Distribution Width 17.7 % (11.5-14.5); Segmented Neutrophils % 49.1 %; White Blood Count 4.8 K/mcL (4.3-11.1)
[2018-11-26 05:55] LABS: BUN/Creatinine Ratio 7 (6-26); Blood Urea Nitrogen 9 mg/dL (8-23); Calcium 7.9 mg/dL (8.6-10.3); Carbon Dioxide 20 mEq/L (23-29); Chloride 111 mEq/L (98-107); Glucose 75 mg/dL (70-105); Osmolality,Calculated 281 (280-300); Potassium 3.9 mEq/L (3.5-5.1); Sodium 137 mEq/L (136-145); eGFR For African Americans > 60 (> 60); eGFR For Non-African Americans 60 (> 60)
[2018-11-26 05:57] LABS: Neutrophils # 2.4 K/mcL (1.6-8.9); Platelet Count 65 K/mcL (140-400)
--- NOTE | 2018-11-26 09:03 | Cardiology Consult Note ---
<Mike Mora - Last Filed: 11/26/18 09:32> Date of Encounter: 11/26/18 Time of Encounter: 08:54 Assessment and Plan (1) CAD (coronary artery disease) Current Visit: No Status: Chronic H/o CAD and prior PCI in 2005. Patient presents with anemia and is being treated for acute GI bleed. [facility] recently ordered for abnormal stress test. Stress test 10/22/18- exercise ECG positive for ischemia with downsloping ST depression in the inferior leads and V3-V6. There is an inferior infarct with mild ritesh infarct ischemia. EF 66%. TTE 08/03/18- EF normal, mild LVH and diastolic dysfunction. Moderate LAE, moderate CHELLY. Mild MR/TR. Discussed with . With acute GI bleed we will defer LHC right now. Patient agrees with plan. Out-pt f/u to discuss doing in future if anemia/bleeding resolves. Continue medical management. Start asa if okay with GI. Start statin and bb. Qualifiers: Coronary Disease-Associated Artery/Lesion type: unspecified vessel or lesion type [place] vs. transplanted heart: unspecified whether [place] or transplanted heart Associated angina: with unspecified angina Qualified Code(s): I25.119 - Atherosclerotic heart disease of [place] coronary artery with unspecified angina pectoris (2) SOB (shortness of breath) Current Visit: Yes Status: Acute Likely multifactoral in setting of acute anemia. States symptoms improved after blood trasfusion. Possible acute on chronic diastolic CHF. Only mild diastolic function. Check BNP. High sodium diet per patient. Low sodium discussed. Consider PRN lasix if needed. Discussion w patient/family: The assessment and plan as outlined above was discussed with the patient and/or family members who expressed understanding and agreement. All questions were answered. Thank you for involving us in the care of your patient. Please call with any questions. History of Present Illness Consult date: 11/26/18 Requesting physician: Ciera Blair Consult reason: [facility] today out-pt scheduled for abnormal stress Chief complaint: SOB History of present illness: Mr. Gillespie is a 63 year old male with past medical history significant for CAD s/p prior PCI in 2005, liver cirrhosis, esophogeal varicies, HTN, HLD, and DM type II who was sent to the hospital for acute anemia. Cardiology consulted due to patient being scheduled for LHC today in out patient setting. Hgb 7.8 prior to admission. Stool guiac was positive. EGD completed and showed esophogeal varicies with bleeding. Patient received clipping. 1 unit of blood g iven. Hgb now 8.0. LHC ordered in the out-pt setting by Dr. Vázquez for abnormal stress test. He c/o SOB with exertion and BLE edema. It is noted his lasix was discontinued due to hypotension. He denies chest pain. Past Med Surg Social Fam HX - Past Medical History Medical history: cirrhosis, coronary artery disease, fibromyalgia, hy perlipidemia, hypertension, liver disease, renal disease Additional medical history: CAD Psychiatric history: no psych history - Past Surgical History Surgical History: angioplasty/stent, other Additional surgical history: EGD, heart cath with stents x3. - Social History Smoking Status: Current every day smoker Packs per day: 1/2 Smokeless Tobacco Status: No Alcohol use: occasionally Drug use: none Medications and Allergies Aspirin 81 mg PO DAILY 07/07/16 [History] Pantoprazole Sodium [Protonix] 40 mg PO BID 07/07/16 [History] Metoprolol Succinate [Toprol Xl] 25 mg PO HS 04/21/18 [History] Rifaximin [Xifaxan] 550 mg PO BID 05/31/18 [History] Loratadine [Allergy Relief] 10 mg PO DAILY 11/24/18 [History] Spironolactone [Aldactone] 100 mg PO DAILY 11/24/18 [History] Allergy/AdvReac Type Severity Reaction Status Date / Time Hucllhl-Uwg-Hgd Reductase Allergy Cramping Verified 11/25/18 16:16 Inhibitor of the [Statins] Muscles All Systems Review: The remainder of the systems were reviewed and are negative Physical Examination Vital Signs, Last 4 Hours Temp Pulse Resp BP Pulse Ox 11/26/18 08:01 98.1 F 91 18 148/54 99 General: Conversant, No Apparent Distress HEENT: Atraumatic, Normocephaly, Mucus Membranes Moist Neck: No JVD, Normal carotid pulses Cardiac: Reg Rate and Rhythm, Normal S1 and S2, No Murmur Lungs: Normal Breath Sounds, No Wheeze, Rales, Rhonchi Neuro: Alert and responsive, No focal deficits noted Abdomen: Soft, Non-Tender Skin: No rashes noted on visualized skin Musculoskeletal: No Chest Wall Tenderness Extremities: No Clubbing, No Cyanosis, Normal Pulses, Other (1+ ankle edema) Results 11/26/18 04:57 11/26/18 04:57 Lab Results 11/25/18 11/26/18 11/26/18 04:51 04:57 04:57 WBC 4.8 Hgb 8.0 L Hct 23.9 L Plt Count 65 L Sodium 137 Potassium 3.9 Chloride 111 H Carbon Dioxide 20 L BUN 9 Creatinine 1.23 Glucose 75 Calcium 7.9 L Total Bilirubin 4.0 H AST 29 ALT 10 Alkaline Phosphatase 143 H - Imaging and Cardiology Stress Test: report reviewed Echo: report reviewed - EKG Interpretation EKG results cardiology: personally reviewed Consult Discharge Plan - Plan Referrals: Afshan Olson, [Primary Care Provider] - <Bakari Barrera - Last Filed: 11/26/18 12:30> Date of Encounter: 11/26/18 - Attending Attestation I have personally performed a face to face evaluation on this patient. I have reviewed and agree with the care plan. History and Exam by me shows: 63-year-old male history of abnormal stress test with preserved ejection fraction presents with severe anemia status post-clipping of esophageal varicies, he is asymptomatic and euvolemic. Consider outpatient LHC as long as patient states asymptomatic. Patient advised if develops symptoms despite improvement in hemoglobin to contact the cardiology department immediately or present to the emergency department for urgent LHC Assessment and Plan Discussion w patient/family: The assessment and plan as outlined above was discussed with the patient and/or family members who expressed understanding and agreement. All questions were answered. Thank you for involving us in the care of your patient. Please call with any questions. History of Present Illness History of present illness: Mr. Gillespie is a 63 year old male All Systems Review: The remainder of the systems were reviewed and are negative Physical Examination Vital Signs, Last 4 Hours Temp Pulse Resp BP Pulse Ox 11/26/18 11:03 98.2 F 98 18 145/56 100 Results 11/26/18 04:57 11/26/18 04:57 Lab Results 11/26/18 11/26/18 11/26/18 04:57 04:57 04:57 WBC 4.8 Hgb 8.0 L Hct 23.9 L Plt Count 65 L Sodium 137 Potassium 3.9 Chloride 111 H Carbon Dioxide 20 L BUN 9 Creatinine 1.23 Glucose 75 Calcium 7.9 L B-Natriuretic Peptide 157 H
[2018-11-26 16:04] VITALS: BP 108/64
--- NOTE | 2018-11-26 17:12 | Discharge Summary ---
- NOTES TO OUTPATIENT PROVIDER Notes to Outpatient Provider: Follow up with cardiology for possible left heart cath date and with general surgery for possible cholecystectomy. Orders not resulted at time of discharge: Pending orders 11/25/18 13:13 AFP Tumor Marker Non- Routine 11/27/18 04:00 Basic Metabolic Panel AM 0400 Complete Blood Count [HEME] AM 0400 11/28/18 04:00 Basic Metabolic Panel AM 0400 Complete Blood Count [HEME] AM 0400 Date of Encounter: 11/26/18 Time of Encounter: 08:55 - Discharge Diagnosis (1) Gastrointestinal bleed Priority: Primary Status: Acute Qualifiers: GI bleed type/associated pathology: gastritis Qualified Code(s): K29.51 - Unspecified chronic gastritis with bleeding (2) Anemia Priority: Secondary Status: Acute Qualifiers: Anemia type: unspecified type Qualified Code(s): D64.9 - Anemia, unspecified (3) Cirrhosis Priority: Secondary Status: Acute Qualifiers: Hepatic cirrhosis type: other cirrhosis Qualified Code(s): K74.69 - Other cirrhosis of liver (4) CAD (coronary artery disease) Priority: Secondary Status: Chronic Qualifiers: Coronary Disease-Associated Artery/Lesion type: unspecified vessel or lesion type [place] vs. transplanted heart: unspecified whether [place] or transplanted heart Associated angina: with unspecified angina Qualified Code(s): I25.119 - Atherosclerotic heart disease of [place] coronary artery with unspecified angina pectoris Hospital course: Mr. Gillespie is a 63 year old male who was scheduled for a cardiac cath at [facility] on account of an abnormal stres test. He was however found to be anemic prior to procedure. GI evaluation revealed grade 1 esophageal varices and bleeding in the stomach which required 2 clips on endoscopy. Discharge discussed with: patient, family, case management - Time Spent with Patient Total time spent providing and/or coordinating discharge services: - Discharge Medications Prescriptions: New Ferrous Sulfate 325 mg PO DAILY@0800 #30 tablet Continued Pantoprazole Sodium [Protonix] 40 mg PO BID Aspirin 81 mg PO DAILY Metoprolol Succinate [Toprol Xl] 25 mg PO HS Rifaximin [Xifaxan] 550 mg PO BID Spironolactone [Aldactone] 100 mg PO DAILY Loratadine [Allergy Relief] 10 mg PO DAILY Home Medications: Aspirin 81 mg PO DAILY 07/07/16 [History] Pantoprazole Sodium [Protonix] 40 mg PO BID 07/07/16 [History] Metoprolol Succinate [Toprol Xl] 25 mg PO HS 04/21/18 [History] Rifaximin [Xifaxan] 550 mg PO BID 05/31/18 [History] Loratadine [Allergy Relief] 10 mg PO DAILY 11/24/18 [History] Spironolactone [Aldactone] 100 mg PO DAILY 11/24/18 [History] Ferrous Sulfate 325 mg PO DAILY@0800 #30 tablet 11/26/18 [Rx] Allergies/Adverse Reactions: Allergy/AdvReac Type Severity Reaction Status Date / Time Vspscwg-Ver-Loq Reductase Allergy Cramping Verified 11/25/18 16:16 Inhibitor of the [Statins] Muscles Date of admission: 11/25/18 10:12 Primary care physician: Afshan Olson DO Consults: 11/24/18 18:46 Consult to Gastroenterology [CONS] Stat Consulting Provider: Gastroenterology Claire Reason for Consult: Hx of varices GI bleed Time Notified: 18:46 Call Completed: Yes 11/24/18 21:12 Consult to Cardiology [CONS] Routine Comment: Consulting Provider: Cardiology Claire Reason for Consult: 63 y/o M known to service with CAD and scheduled for cardiac cath on Thursday. Admitted today for fatigue and will be optimized with blood transfusion and endoscopy to assess for any bleeding. Please evaluate possibility of cardiac cath being done now during admission. Call Completed: No - Constitutional Vitals: Temp Pulse Resp BP Pulse Ox 36.8 C 97 20 108/64 97 11/26/18 16:02 11/26/18 16:02 11/26/18 16:02 11/26/18 16:02 11/26/18 16:02 Exam: Patient not in distress. Moist oral mucosa. 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
== END 2018-11-26 18:00 | disposition home or self-care (01) | DRG 379 ==
LOC: EMEROOARM 16:25 → 2ANU 16:25 → SUATTDRO 19:37 → 2ANU 20:47
PROVIDERS: ADMIT Internal Medicine; ATTEND Internal Medicine

== ENCOUNTER 2018-12-22 00:34 | Observation (INO) ==
[2018-12-22 01:13] LABS: Basophils # 0.1 K/mcL (0.0-0.2); Basophils % 0.8 %; Eosinophils # 0.3 K/mcL (0.0-0.6); Eosinophils % 4.3 %; Hematocrit 26.3 % (37.5-50.1); Hemoglobin 8.6 g/dL (12.9-16.9); Immature Granulocytes % 0.3 % (0-4); Lymphocytes # 1.7 K/mcL (0.6-4.6); Mean Corpuscular HGB Conc 32.7 g/dL (31.6-35.5); Mean Corpuscular Hemoglobin 32.5 pg (28.0-33.3); Mean Corpuscular Volume 99.2 fL (83.0-100.0); Mean Platelet Volume 11.2 fL (9.4-12.4); Monocytes # 0.7 K/mcL (0.0-1.3); Monocytes % 11.4 %; Neutrophils # 3.7 K/mcL (1.6-8.9); Platelet Count 103 K/mcL (140-400); Red Blood Count 2.65 M/mcL (4.19-5.50); Red Cell Distribution Width 17.2 % (11.5-14.5); Segmented Neutrophils % 57.2 %; White Blood Count 6.5 K/mcL (4.3-11.1)
[2018-12-22 01:35] LABS: BUN/Creatinine Ratio 7 (6-26); Blood Urea Nitrogen 10 mg/dL (8-23); Calcium 8.7 mg/dL (8.6-10.3); Carbon Dioxide 18 mEq/L (23-29); Chloride 113 mEq/L (98-107); Glucose 154 mg/dL (70-105); Osmolality,Calculated 288 (280-300); Potassium 3.8 mEq/L (3.5-5.1); Sodium 138 mEq/L (136-145); eGFR For African Americans > 60 (> 60); eGFR For Non-African Americans 51 (> 60)
[2018-12-22 01:36] LABS: Troponin I < 0.03 ng/mL (< 0.04)
[2018-12-22] MEDS ORDERED: Aspirin 81 MG TAB.CHEW PO ONE (01:59)
--- NOTE | 2018-12-22 02:06 | Emergency Department Note ---
Disposition Clinical Impression: Chest pain Qualifiers: Chest pain type: unspecified Qualified Code(s): R07.9 - Chest pain, unspecified Dyspnea Qualifiers: Dyspnea type: unspecified Qualified Code(s): R06.00 - Dyspnea, unspecified Disposition: Admitted As Inpatient Condition: Good Referrals: Afshan Olson DO [Primary Care Provider] - Forms: ED Satisfaction Letter Time of Disposition: 02:11 General Adult HPI - General Chief complaint: ED Chest Pain Stated complaint: Dyspnea Time Seen by Provider: 12/22/18 01:05 Source: patient Mode of arrival: ambulatory Limitations: no limitations Nursing Notes Reviewed: Yes Vital Signs Reviewed: Yes - History of Present Illness HPI Narrative: Patient is a 63-year-old male that presents emergency Department with reports of left shoulder pain as well as shortness of breath. Patient states that he has not had any diaphoresis or nausea. Patient states that he does have a prior history of coronary artery disease and is had 3 prior stents that were placed at [facility]. Patient states that he has no active chest pain at the moment but does feel short of breath. States that the tingling and discomfort radiates down his left arm and feels somewhat similar to when he had prior heart attack events. Patient states that he has had swelling in bilateral lower extremities but this is chronic for him. Patient states that he has taken aspirin but has not taken any nitroglycerin. Patient reports that he had a stress test back in October when his symptoms started and was told that he had an abnormal stress test and would eventually need a catheter. Patient states that his hemoglobin had been low so he was not cleared to have a catheter. Patient states that his symptoms have progressively gotten worse. Pain Scale: 2 - Related Data Home Medications Medication Instructions Recorded Confirmed Aspirin 81 mg PO DAILY 07/07/16 12/22/18 Pantoprazole Sodium [Protonix] 40 mg PO BID 07/07/16 12/22/18 Metoprolol Succinate [Toprol Xl] 25 mg PO HS 04/21/18 12/22/18 Rifaximin [Xifaxan] 550 mg PO BID 05/31/18 12/22/18 Loratadine [Allergy Relief] 10 mg PO DAILY 11/24/18 12/22/18 Spironolactone [Aldactone] 100 mg PO DAILY 11/24/18 12/22/18 Previous Rx's Medication Instructions Recorded Ferrous Sulfate 325 mg PO DAILY@0800 #30 tablet 11/26/18 Allergies Allergy/AdvReac Type Severity Reaction Status Date / Time [id number] Reductase Allergy Cramping Verified 12/22/18 00:59 Inhibitor of the [Statins] Muscles All systems ED: reviewed and negative except as stated. Cardiovascular: Denies: chest pain Respiratory: Reports: dyspnea Gastrointestinal: Denies: abdominal pain, nausea, vomiting Musculoskeletal: Reports: other (Left shoulder and arm discomfort and tingling.) Neurological: Denies: weakness, numbness, paresthesias Past Medical History - Past Medical History Medical history: Reports: cirrhosis, coronary artery disease, fibromyalgia, hyperlipidemia, hypertension, liver disease, renal disease Surgical history: Reports: angioplasty/stent, other Psychiatric history: Reports: no psych history - Social History Smoking Status: Current every day smoker Smokeless Tobacco Status: No Alcohol use: Reports: occasionally Drug use: Reports: none Physical Exam - General Limitations: no limitations General appearance: alert, in no apparent distress - Head Head exam: atraumatic, normocephalic - Eye Eye exam: Present: normal appearance, EOMI - Neck Neck exam: Present: normal inspection, full ROM, trachea midline - Respiratory Respiratory exam: Present: normal lung sounds bilaterally, respiratory distress, wheezes - Cardiovascular Cardiovascular exam: Present: regular rate, normal rhythm, normal heart sounds, +S1, +S2 - Abdominal Exam Abdominal exam: Present: soft, Non-Tender, normal bowel sounds - Extremities Exam Extremities exam: Present: other (Edema to bilateral lower extremities.) - Neurological Exam Neurological exam: Present: alert, oriented X3 - Psychiatric Psychiatric exam: Present: normal affect, normal mood - Skin Skin exam: Present: warm, dry, intact Course Vital Signs Temperature 98.7 F 12/22/18 00:38 Pulse Rate 89 12/22/18 00:38 Respiratory Rate 18 12/22/18 00:38 Blood Pressure 125/64 12/22/18 00:38 O2 Sat by Pulse Oximetry 100 12/22/18 00:38 Temperature 98.2 F 12/22/18 01:01 Pulse Rate 84 12/22/18 02:57 Respiratory Rate 20 12/22/18 02:57 Blood Pressure 120/62 12/22/18 02:57 O2 Sat by Pulse Oximetry 100 12/22/18 02:57 Oxygen Delivery Oxygen Delivery Room Air Medical Decision Making - MDM Narrative Medical decision making narrative: Due the patient's into the emergency department with reports of shortness of breath and pain and tingling down into his left arm there is concern for possible cardiac involvement. The patient has a strong history of coronary artery disease requiring stents. Patient was recommended for cardiac catheterization but this was held due to the patient's prior hemoglobin. At this time the patient is chest pain-free. His EKG shows T-wave inversions and mild depressions in lead 2, lead 3 and aVF. The patient did have flipped T waves in lead 2 and aVF on prior EKG on 01/07/18. There is no evidence of STEMI on EKG at this time. Due the patient's risk factors as well as his presenting symptoms I feel is most appropriate for him to be brought into the hospital for further evaluation and management and likely cardiac evaluation. Patient and family are in agreement with this. Patient was given an aspirin here in the emergency department. Patient is currently chest pain-free and did not require any nitroglycerin. Called spoke the admitting hospitalist and she is except the patient their service to patient be admitted to hospital at this time for further evaluation and management. - Medical Records Medical records reviewed: Yes I reviewed the patient's medical records. - Lab Data Lab results reviewed: Yes I reviewed the patient's lab results. Result diagrams: 12/22/18 01:02 12/22/18 01:02 Lab Results 12/22/18 12/22/18 Range/Units 01:02 01:02 WBC 6.5 (4.3-11.1) K/mcL RBC 2.65 L (4.19-5.50) M/mcL Hgb 8.6 L (12.9-16.9) g/dL Hct 26.3 L (37.5-50.1) % MCV 99.2 (83.0-100.0) fL MCH 32.5 (28.0-33.3) pg MCHC 32.7 (31.6-35.5) g/dL RDW 17.2 H (11.5-14.5) % Plt Count 103 L (140-400) K/mcL MPV 11.2 (9.4-12.4) fL Immature Gran % 0.3 (0-4) % Seg Neutrophils % 57.2 % Lymphocytes % 26.0 % Monocytes % 11.4 % Eosinophils % 4.3 % Basophils % 0.8 % Neutrophils # 3.7 (1.6-8.9) K/mcL Lymphocytes # 1.7 (0.6-4.6) K/mcL Monocytes # 0.7 (0.0-1.3) K/mcL Eosinophils # 0.3 (0.0-0.6) K/mcL Basophils # 0.1 (0.0-0.2) K/mcL Sodium 138 (136-145) mEq/L Potassium 3.8 (3.5-5.1) mEq/L Chloride 113 H (98-107) mEq/L Carbon Dioxide 18 L (23-29) mEq/L BUN 10 (8-23) mg/dL Creatinine 1.41 H (0.70-1.30) mg/dL Est GFR ( Amer) > 60 (> 60) Est GFR (Non-Af Amer) 51 L (> 60) BUN/Creatinine Ratio 7 (6-26) Glucose 154 H (70-105) mg/dL Calculated Osmolality 288 (280-300) Calcium 8.7 (8.6-10.3) mg/dL Troponin I < 0.03 (< 0.04) ng/mL - Radiology Data Radiology results reviewed: Yes I reviewed the patient's radiology results. Chest X-Ray 12/22/18 00:44 IMPRESSION: Possible left upper lobe pulmonary infiltrate. D/ / Radhames Muir MD / Radhames Muir MD Interpreting Provider: Radhames Muir MD - EKG Data EKG #1 EKG attestation: Yes I reviewed and interpreted this EKG. EKG results narrative: EKG shows heart rate of 82 bpm, CA interval 140, curious duration 88, QTc 409. Sinus rhythm. T-wave inversions and mild depressions in lead 2, lead 3 and aVF. The patient did have flipped T waves in lead 2 and aVF on prior EKG on 01/07/18. There is no evidence of STEMI on EKG at this time.
--- NOTE | 2018-12-22 03:12 | Emergency Department Note ---
Disposition Clinical Impression: Chest pain Qualifiers: Chest pain type: unspecified Qualified Code(s): R07.9 - Chest pain, unspecified Dyspnea Qualifiers: Dyspnea type: unspecified Qualified Code(s): R06.00 - Dyspnea, unspecified Disposition: Admitted As Inpatient Condition: Good Referrals: Afshan Olson DO [Primary Care Provider] - Forms: ED Satisfaction Letter Time of Disposition: 02:11 General Adult HPI - General Chief complaint: ED Chest Pain Stated complaint: Dyspnea Time Seen by Provider: 12/22/18 01:05 Source: patient Mode of arrival: ambulatory Limitations: no limitations Nursing Notes Reviewed: Yes Vital Signs Reviewed: Yes - History of Present Illness Pain Scale: 2 - Related Data Home Medications Medication Instructions Recorded Confirmed Aspirin 81 mg PO DAILY 07/07/16 12/22/18 Pantoprazole Sodium [Protonix] 40 mg PO BID 07/07/16 12/22/18 Metoprolol Succinate [Toprol Xl] 25 mg PO HS 04/21/18 12/22/18 Rifaximin [Xifaxan] 550 mg PO BID 05/31/18 12/22/18 Loratadine [Allergy Relief] 10 mg PO DAILY 11/24/18 12/22/18 Spironolactone [Aldactone] 100 mg PO DAILY 11/24/18 12/22/18 Previous Rx's Medication Instructions Recorded Ferrous Sulfate 325 mg PO DAILY@0800 #30 tablet 11/26/18 Allergies Allergy/AdvReac Type Severity Reaction Status Date / Time [id number] Reductase Allergy Cramping Verified 12/22/18 00:59 Inhibitor of the [Statins] Muscles Cardiovascular: Denies: chest pain Respiratory: Reports: dyspnea Gastrointestinal: Denies: abdominal pain, nausea, vomiting Musculoskeletal: Reports: other (Left shoulder and arm discomfort and tingling.) Neurological: Denies: weakness, numbness, paresthesias Past Medical History - Past Medical History Medical history: Reports: cirrhosis, coronary artery disease, fibromyalgia, hyperlipidemia, hypertension, liver disease, renal disease Surgical history: Reports: angioplasty/stent, other Psychiatric history: Reports: no psych history - Social History Smoking Status: Current every day smoker Smokeless Tobacco Status: No Alcohol use: Reports: occasionally Drug use: Reports: none Physical Exam - General Limitations: no limitations General appearance: alert, in no apparent distress Course Vital Signs Temperature 98.7 F 12/22/18 00:38 Pulse Rate 89 12/22/18 00:38 Respiratory Rate 18 12/22/18 00:38 Blood Pressure 125/64 12/22/18 00:38 O2 Sat by Pulse Oximetry 100 12/22/18 00:38 Temperature 98.2 F 12/22/18 01:01 Pulse Rate 84 12/22/18 02:57 Respiratory Rate 20 12/22/18 02:57 Blood Pressure 120/62 12/22/18 02:57 O2 Sat by Pulse Oximetry 100 12/22/18 02:57 Oxygen Delivery Oxygen Delivery Room Air Medical Decision Making - Medical Records Medical records reviewed: Yes I reviewed the patient's medical records. - Lab Data Lab results reviewed: Yes I reviewed the patient's lab results. Result diagrams: 12/22/18 01:02 12/22/18 01:02 Lab Results 12/22/18 12/22/18 Range/Units 01:02 01:02 WBC 6.5 (4.3-11.1) K/mcL RBC 2.65 L (4.19-5.50) M/mcL Hgb 8.6 L (12.9-16.9) g/dL Hct 26.3 L (37.5-50.1) % MCV 99.2 (83.0-100.0) fL MCH 32.5 (28.0-33.3) pg MCHC 32.7 (31.6-35.5) g/dL RDW 17.2 H (11.5-14.5) % Plt Count 103 L (140-400) K/mcL MPV 11.2 (9.4-12.4) fL Immature Gran % 0.3 (0-4) % Seg Neutrophils % 57.2 % Lymphocytes % 26.0 % Monocytes % 11.4 % Eosinophils % 4.3 % Basophils % 0.8 % Neutrophils # 3.7 (1.6-8.9) K/mcL Lymphocytes # 1.7 (0.6-4.6) K/mcL Monocytes # 0.7 (0.0-1.3) K/mcL Eosinophils # 0.3 (0.0-0.6) K/mcL Basophils # 0.1 (0.0-0.2) K/mcL Sodium 138 (136-145) mEq/L Potassium 3.8 (3.5-5.1) mEq/L Chloride 113 H (98-107) mEq/L Carbon Dioxide 18 L (23-29) mEq/L BUN 10 (8-23) mg/dL Creatinine 1.41 H (0.70-1.30) mg/dL Est GFR ( Amer) > 60 (> 60) Est GFR (Non-Af Amer) 51 L (> 60) BUN/Creatinine Ratio 7 (6-26) Glucose 154 H (70-105) mg/dL Calculated Osmolality 288 (280-300) Calcium 8.7 (8.6-10.3) mg/dL Troponin I < 0.03 (< 0.04) ng/mL - Radiology Data Radiology results reviewed: Yes I reviewed the patient's radiology results. Chest X-Ray 12/22/18 00:44 IMPRESSION: Possible left upper lobe pulmonary infiltrate. D/ / Radhames Muir MD / Radhames Muir MD Interpreting Provider: Radhames Muir MD - EKG Data EKG #1 EKG attestation: Yes I reviewed and interpreted this EKG. EKG results narrative: EKG shows normal sinus rhythm with ventricular rate of 82. New inferior T-wave inversions in lead [address] segment elevation. No arrhythmia or ectopy. Attestation Statement - Attestation Attestation: I, Pan Eric MD, personally evaluated this patient and discussed their management with the resident physician. I reviewed the resident's note and agree with the documented findings, medical decision making, and plan of care. I reviewed the residents documentation and agree with the residents assessment and plan of care. I have personally had face to face time with the patient. I personally supervised and was present for the klein/critical portions of the following procedures completed by the resident: EKG interpretation. 63-year-old male presents to the emergency department with a complaint of intermittent episodes of shortness of breath which have been worsening over the past 2 months. Patient had an abnormal stress test about 2 months ago and was scheduled for a cardiac catheter however he was found to be very anemic and was having some GI bleeding. Catheter was postponed due to this and is still awaiting clearance for his other medical issues before he can have the cardiac catheter. He states the shortness of breath has gotten progressively worse and tonight he developed some left upper chest pain and scapular pain with tingling down the left arm. No nausea or vomiting. No diaphoresis. No palpitations. Patient does have a history of coronary artery disease and has had coronary artery stents placed in the past. He states the symptoms are similar to the symptoms he had at that time. On examination patient is a well-developed well-nourished male in no acute distress. He is alert and oriented 3. There is no cyanosis or diaphoresis. Chest is nontender to palpation. Breath sounds are clear and equal bilaterally. Heart regular rate and rhythm with a 2/6 systolic murmur. Abdomen is soft and nontender with normal bowel sounds. There is 2+ pitting edema of the lower extremities bilaterally which patient states is chronic but may be a little worse than usual. EKG shows normal sinus rhythm with ventricular rate of 82. New inferior T-wave inversions in lead [address] segment elevation. No arrhythmia or ectopy. Chest x-ray showed some possible left upper lobe infiltrates. I reviewed the film myself and did not see any obvious pneumonia. Patient has no symptoms of pneumonia. Labs reviewed. Hemoglobin stable. Renal function at baseline. Troponin negative. The hospitalist, Dr. Loera, was consulted and accepted admission of the patient.
[2018-12-22] MEDS ORDERED: Naloxone 0.4 MG/ML INJ IVP PRN (07:12)
[2018-12-22] MEDS ORDERED: Ondansetron 4 MG/2 ML VIAL IVP PRN (07:12)
--- NOTE | 2018-12-22 08:19 | Internal Med History&Physical ---
<Aashish Harris A - Last Filed: 12/22/18 13:57> Date of Encounter: 12/22/18 Time of Encounter: 08:18 Internal Medicine - H&P: HPI Chief complaint: SOB Admitted From: Emergency Dept History of present illness: Mr. Gillespie is a 63 year old male who presents for shortness of breath and L shoulder and chest pain. Pt states he was sitting in a chair last night at 930p and developed an achey pain in his chest and arm. Pain was constant and with tingling in his left arm. Denies aggravating or relieving factors. Pt has history of 50 pack year smoking history, previous CAD with 3 stents. This pain was consistent with previous episode of angina. Stress test in Oct 2018 showed abnormalities though awaiting stent for Hgb recovery from recent history of variceal bleed d/t cirrohsis of unknown etiology (possible hemochromatosis, previous HemOnc consult- genetic workup not significant for mutation). Pt was admitted in November 2018 for variceal bleeding, EGD showed grade 1 esophageal varices with active bleeding requiring banding and clipping x2. Pt denies current chest/shoulder pain. Pain not reproducible with palpation. Denies nausea, vomiting, abdominal pain. Denies NSAID use. Denies blood in stool, dark stools, vomiting blood. ED Course: Pt presented with chest/shoulder pain and SOB. T:98.2 HR:78 RR:20 BP:120/75 SpO2:98%. Pt received ASA in ED. EKG noted to have depressions in II, III, avF with mild T wave inversions. Troponins negative. Hgb noted 8.6, stable from previous months. CXR nonacute. Pt reports feeling well now. Pt sitting in bed at time of interview. Admits to leg swelling at this time, otherwise without acute complaints. States he is no longer experiencing chest/shoulder pain. Denies numbness/tingling. Vitals at time of interview: HR:80 RR:16 BP:115/61 SpO2:99% Past Medical Hx: CAD; cirrhosis (variceal bleeding, hepatic encephalopathy); anemia (2/2 variceal bleed); tobacco abuse; obesity Past Surgical Hx: admits clot removal in L groin at age 6; prior heart cath 2005 Social Hx: admits 1/4 ppd, weening down tobacco use x50 year; denies history or current alcohol use or illicit drugs Family Hx: + for tumors/cancer; negative for DM, cardiac involvement Prior cardiac involvement: 3 stents placed in [place] in 2005; Oct 2018 abnormal stress, unable to stent d/t concerns of antiplatelet in setting of grade 1 variceal bleeding, awaiting for Hgb recovery; TTE 08/03/18 normal EF. FULL CODE Past Med Surg Social Fam HX - Past Medical History Medical history: cirrhosis, coronary artery disease, fibromyalgia, GI bleed (esophageal variceal bleed), hyperlipidemia, hypertension, liver disease, renal disease Additional medical history: CAD Psychiatric history: no psych history - Past Surgical History Surgical History: angioplasty/stent, other Additional surgical history: Heart cath with stents x3 (2005). EGD. Blood clot removal (age 6). - Social History Smoking Status: Current every day smoker Packs per day: 05/14, weening down Smokeless Tobacco Status: No Alcohol use: occasionally Drug use: none - Family History Father Cause of : bleeding tumor in chest Internal Medicine - H&P: Meds Pantoprazole Sodium [Protonix] 40 mg PO BID 07/07/16 [History] Metoprolol Succinate [Toprol Xl] 25 mg PO HS 04/21/18 [History] Rifaximin [Xifaxan] 550 mg PO BID 05/31/18 [History] Loratadine [Allergy Relief] 10 mg PO DAILY 11/24/18 [History] Aspirin [Adult Aspirin Regimen] 81 mg PO QAM 12/22/18 [History] Pravastatin Sodium [Pravachol] 40 mg PO DAILY 12/22/18 [History] Spironolactone 50 mg PO DAILY 12/22/18 [History] Allergy/AdvReac Type Severity Reaction Status Date / Time ferrous sulfate Allergy See Verified 12/22/18 20:14 Comments [id number] Reductase Allergy Cramping Verified 12/22/18 20:14 Inhibitor of the [Statins] Muscles All Systems PM: A 10-system review of systems was performed and is negative for pertinent findings except as documented above in the HPI. - Constitutional Constitutional: no chills, no fever(s), no night sweats - EENT Eyes: no change in vision, no discharge, no pain, no photophobia Ears: no ear discharge, no ear pain, no tinnitus Nose, mouth and throat: epistaxis (occasional, no recent), no dysphagia, no nasa l discharge, no neck pain, no sore throat - Cardiovascular Cardiovascular ROS IM: as per HPI, chest pain, dyspnea, edema - Respiratory Respiratory: dyspnea, no cough, no hemoptysis, no chest congestion - Gastrointestinal Gastrointestinal: as per HPI, no abdominal pain, no change in bowel habits, no coffee ground emesis, no diarrhea, no hematemesis, no hematochezia, no melena, no nausea, no vomiting - Genitourinary Genitourinary ROS male: no dysuria, no flank pain, no hematuria - Musculoskeletal Musculoskeletal ROS IM: tingling (occasional tingling during chest/shoulder pain), no back pain, no numbness - Integumentary Integumentary IM: no rash, no unusual bruising - Neurological Neurological ROS: as per HPI, tingling (occasional tingling during chest/shoulder pain), no confusion, no convulsions, no focal weakness, no headache(s), no numbness, no tremor(s) - Psychiatric Psychiatric: no confusion - Endocrine Endocrine IM: no fatigue - Hematologic/Lymphatic Hematologic/Lymphatic: no easy bruising - Allergic/Immunologic Allergic/Immunologic: no wheezing - Constitutional Vitals: Temp Pulse Resp BP Pulse Ox 98.2 F 76 16 115/61 98 12/22/18 07:48 12/22/18 07:48 12/22/18 07:48 12/22/18 07:48 12/22/18 07:48 Exam: Gen: Well-appearing, no acute distress, conversant Head: Normocephalic, atraumatic Eyes: PERRL, EOMI, anicteric ENT: MMM, oropharyx without erythema or drainage Neck: Supple, no LAD, no stiffness or restricted ROM, no tracheal deviation Heart: RRR, normal S1, S2; no m/r/g Lungs: Soft crackles in lower lung paredes. CTAB, good air exchange b/l. No wheezing. GI: Soft, nontender abdomen. BSx4. no organomegaly appreciated. : No suprapubic tenderness Back: No obvious stepoffs or deformities, nontender Ext: +2 pitting edema in LE b/l, otherwise without cyanosis, clubbing. Skin: Warm and dry without rashes Neuro: A&O x4, CN not formally tested but appear grossly intact. Moving all 4 extremities. Sensation in all 4 extremities intact. Psych: Normal affect, no depression or anxiety appreciated. Internal Med - H&P Results - Labs CBC & Chem 7: 12/22/18 01:02 12/22/18 01:02 Labs: Short CBC 12/22/18 Range/Units 01:02 WBC 6.5 (4.3-11.1) K/mcL Hgb 8.6 L (12.9-16.9) g/dL Hct 26.3 L (37.5-50.1) % Plt Count 103 L (140-400) K/mcL Neutrophils # 3.7 (1.6-8.9) K/mcL BMP 12/22/18 01:02 Sodium 138 Potassium 3.8 Chloride 113 H Carbon Dioxide 18 L BUN 10 Creatinine 1.41 H Glucose 154 H Calcium 8.7 Cardiac Enzymes 12/22/18 12/22/18 Range/Units 01:02 07:35 Troponin I < 0.03 < 0.03 (< 0.04) ng/mL - Impressions ITS Impressions Chest X-Ray 12/22/18 00:44 IMPRESSION: Possible left upper lobe pulmonary infiltrate. D/ / Radhames Muir MD / Radhames Muir MD Interpreting Provider: Radhames Muir MD - Assessment and Plan (1) Chest pain Current Visit: Yes Status: Acute Assessment and plan: -likely suspect stable angina, ruled out other cardiac involvement such as unstable angina, coronary spasm, NSTEMI, STEMI, aoritc dissection, esophageal rupture, PTX; less likely esophageal spasm, GERD, musculoskeletal pain -pt presented with chest/shoulder pain and SOB, denies pain at this time, pain not reproducible with palpation, denies n/v/change in stools, no acute complai nts at this time, HR:80 RR:16 BP:115/61 SpO2:99% -50 pack year smoking history with known hx CAD s/p 3 stents placed 2005 -exercise stress test 10/22/2018 showed abnormalities positive for ischemia with downsloping ST depression in the inferior leads and V3-V6; old inferior infarct with mild ritesh infarct ischemia -awaiting stent for Hgb recovery from recent gastric bleed and varices d/t cirrohsis of unknown etiology -TTE 08/03/18 EF 66%, mild LVH and dd -recieved ASA 81mg x4 PO -EKG noted to have depressions in II, III, avF with new mild T wave inversions -Troponins negative x2 -CXR nonacute -Cr 1.4 near baseline -continue telemetry -continue ASA 81mg PO QD -continue home medications Toprol XL 25mg PO HS -hold Spironlactone to decrease possible SOFÍA contribution -daily CBC and BMP -trend troponins -PT/INR, hepatic panel, and iron studies ordered -diet: NPO for EGD then cardiac diet, no fluid restriction -consult to cardiology for possible cath pending GI evaluation -to discuss need for stent/antiplatelets in setting of previous variceal bleeding, Hgb stable 8.6. -FULL CODE Qualifiers: Chest pain type: chest pain due to myocardial ischemia Ischemic chest pain type: unspecified angina pectoris type Qualified Code(s): I25.9 - Chronic ischemic heart disease, unspecified (2) Cirrhosis Current Visit: No Status: Acute Assessment and plan: -history of non-acloholic cirrohsis of unknown etiology, possible hemochromatosis with previous HemOnc consult, genetic testing showed no mutation though possible variant of undetected HFE -known variceal bleed with resulting anemia, stable -history of hepatic encephalopathy -denies blood in stool, dark stools, vomiting blood -Hg 8.6, stable -to consult GI for EGD in evaluation of varices -PT/INR, LFT panel, and iron studies ordered -will need to discuss possible stent/antiplatelet therapy in setting of varices with history of bleed Qualifiers: Hepatic cirrhosis type: other cirrhosis Qualified Code(s): K74.69 - Other cirrhosis of liver (3) Anemia Current Visit: Yes Status: Chronic Assessment and plan: -anemia secondary to gastric bleeding from prior admission -cirrhosis etiology unknown, possible HFE though HemOnc genetic testing negative, history of non-acloholic cirrhosis -GI consult for further evaluation of esophageal varices prior to cardiac cath -varices seen with previous EGD, clipped intra-operatively -Hg 8.6, stable -continue Fe supplement, will consider colace if constipation -will trend daily CBC and BMP -iron studies pending Qualifiers: Anemia type: unspecified type Qualified Code(s): D64.9 - Anemia, unspecified (4) History of esophageal varices Current Visit: Yes Status: Chronic Assessment and plan: -related to the above -unknown etiology of cirrhosis -consult to GI for further evaluation and management -pending cardiac cath if stable, low risk for bleeding complications -GI for EGD (5) Tobacco abuse Current Visit: Yes Status: Acute Assessment and plan: -1/4 ppd, down from 50 ppy history -patch and gum declined at this time, PRN -encourage smoking cessation (6) Obesity Current Visit: Yes Status: Acute Assessment and plan: -BMI 32 -encourage weight reduction and lifestyle modifications -consult nutrition to assist in weight education Qualifiers: Obesity type: unspecified obesity type Obesity classification: adult class 1 (BMI 30 - 34.9) Serious obesity comorbidity presence: with serious comorbidity Body mass index: BMI 32.0-32.9 Qualified Code(s): E66.9 - Obesity, unspecified; Z68.32 - Body mass index (BMI) 32.0-32.9, adult (7) DVT prophylaxis Current Visit: Yes Status: Acute Assessment and plan: -will hold at this time pending evaluation of esophageal varices -start SCD - Time Spent With Patient Total time spent is greater than 50% in coordination of care (as documented) at patient's floor/unit and/or counseling patient: <Joseph Aguirre - Last Filed: 12/22/18 20:30> Date of Encounter: 12/22/18 Internal Medicine - H&P: HPI History of present illness: Mr. Gillespie is a 63 year old male All Systems PM: A 10-system review of systems was performed and is negative for pertinent findings except as documented above in the HPI. - Constitutional Vitals: Temp Pulse Resp BP Pulse Ox 98.2 F 82 19 112/65 98 12/22/18 19:57 12/22/18 19:57 12/22/18 19:57 12/22/18 19:57 12/22/18 19:57 Internal Med - H&P Results - Labs CBC & Chem 7: 12/22/18 01:02 12/22/18 01:02 Labs: Short CBC 12/22/18 Range/Units 01:02 WBC 6.5 (4.3-11.1) K/mcL Hgb 8.6 L (12.9-16.9) g/dL Hct 26.3 L (37.5-50.1) % Plt Count 103 L (140-400) K/mcL Neutrophils # 3.7 (1.6-8.9) K/mcL BMP 12/22/18 01:02 Sodium 138 Potassium 3.8 Chloride 113 H Carbon Dioxide 18 L BUN 10 Creatinine 1.41 H Glucose 154 H Calcium 8.7 Cardiac Enzymes 12/22/18 12/22/18 12/22/18 Range/Units 01:02 07:35 14:23 Troponin I < 0.03 < 0.03 < 0.03 (< 0.04) ng/mL Liver Function 12/22/18 Range/Units 11:57 Total Bilirubin 4.5 H (0.3-1.0) mg/dL Direct Bilirubin 1.7 H (0.0-0.2) mg/dL AST 29 (13-39) Units/L ALT 13 (7-52) Units/L Alkaline Phosphatase 149 H (34-104) Units/L Albumin 2.5 L (3.5-5.7) g/dL - Impressions ITS Impressions Chest X-Ray 12/22/18 00:44 IMPRESSION: Possible left upper lobe pulmonary infiltrate. D/ / Radhames Muir MD / Radhames Muir MD Interpreting Provider: Radhames Muir MD - Assessment and Plan (1) Chest pain Current Visit: Yes Status: Acute Qualifiers: Chest pain type: chest pain due to myocardial ischemia Ischemic chest pain type: unstable angina pectoris Qualified Code(s): I20.0 - Unstable angina (2) CAD (coronary artery disease) Current Visit: Yes Status: Chronic Qualifiers: Coronary Disease-Associated Artery/Lesion type: [place] artery [place] vs. transplanted heart: [place] heart Associated angina: with unstable angina Qualified Code(s): I25.110 - Atherosclerotic heart disease of [place] coronary ar [place] with unstable angina pectoris (3) Anemia Current Visit: Yes Status: Suspected Qualifiers: Anemia type: iron deficiency Iron deficiency anemia type: chronic blood loss Qualified Code(s): D50.0 - Iron deficiency anemia secondary to blood loss (chronic) (4) Tobacco abuse Current Visit: Yes Status: Acute - Time Spent With Patient Total time spent is greater than 50% in coordination of care (as documented) at patient's floor/unit and/or counseling patient: - Attending Attestation The history, physical exam, and medical decision making was performed by the medical student either while I was physically present and actively involved or I personally re-performed the exam and medical decision making. I have verified the accuracy of the medical student's documentation with regards to the history, physical exam findings, and medical decision making on 12/22/18. Mr Gillespie is 63 y/o male with hx of varices and CAD. He presented to ED with chest pain which resolved spontaneously. He has previous abnormal stress test. Currently he is pain free. Exam: Alert. Comfortable. NC. Mucus membranes dry. Neck supple. Heart reg and distant. Not tachycardic. No wheeze. Abd soft and nontender. No edema. Moves extremities. No rash. I/P 1. Chest pain - hx abnormal stress test. Symptom-free now. Cardiology consulted. 2. Cirrhosis 3. Recent hx esophageal varices - GI consulted today as well. 4. CAD Further diagnoses and plan as above
[2018-12-22] MEDS ORDERED: Aspirin 81 MG TAB.CHEW PO SCH (09:00)
--- NOTE | 2018-12-22 09:56 | Gastroenterology Consult Note ---
<Freddie El - Last Filed: 12/22/18 10:11> Date of Encounter: 12/22/18 Time of Encounter: 09:53 - Assessment and plan (1) Anemia Status: Chronic Assessment and plan: Patient with history of nonalcoholic cirrhosis and coronary artery disease Known esophageal varices demonstrated on previous admission and clipped Known history of chronic anemia associated with esophageal varices Anemia precluded cardiology intervention at last admission for abnormal stress Cardiology evaluation did not occur outpatient as planned due to continued an emia Patient now presents again with cardiac type chest pain and continued anemia GI evaluation was requested to evaluate known varices in anticipation of cardiology intervention Patient has no evidence of bleeding including hematemesis or melena, Hemoccult not performed However due to known varices and continued anemia there is concern for GI bleed Patient is nothing by mouth tentatively scheduled for EGD this afternoon Anemia suspected to be iron deficiency secondary to GI bleed Iron profile ordered and pending this admission to qualify anemia Further recommendations per Dr. Fry Qualifiers: Anemia type: unspecified type Qualified Code(s): D64.9 - Anemia, unspecified (2) Non-alcoholic cirrhosis Status: Chronic Assessment and plan: Patient has known history of nonalcoholic cirrhosis, he does take rifaximin at home Currently no signs of encephalopathy or ascites, he does have known history of varices PT/INR, hepatic panel ordered and pending, last known MELD-Na 19 and Child Bonner class C Continue rifaximin, recommend lactulose as needed for 2-4 bowel movements daily (3) History of esophageal varices Status: Chronic Assessment and plan: Grade 1 esophageal varices demonstrated on previous endoscopy October 2018 Varices were clipped Intra-Op (4) CAD (coronary artery disease) Status: Chronic Assessment and plan: History of coronary artery disease status post PCI in 2005 Recently admitted for abnormal stress test demonstrating inferior ischemia October 2018 Intervention was not performed due to anemia, outpatient evaluation was not completed Patient now returns with cardiac type chest pain and EKG changes correlating w ith inferior ischemia Cardiology consultation pending Qualifiers: Coronary Disease-Associated Artery/Lesion type: unspecified vessel or lesion type [place] vs. transplanted heart: unspecified whether [place] or transplanted heart Associated angina: with unspecified angina Qualified Code(s): I25.119 - Atherosclerotic heart disease of [place] coronary artery with unspecified angina pectoris - Time Spent With Patient Total time spent is greater than 50% in coordination of care (as documented) at patient's floor/unit and/or counseling patient: GI History of Present Illness - Data of Consult Patient: known to practice within the last 3 years Consult date: 12/22/18 Requesting Physician: Joseph Aguirre, DO - Consult Narrative Reason for consult: anemia and known varices History of present illness: Mr. Gillespie is a 63 year old male with a past medical history of nonalcoh olic cirrhosis, coronary artery disease status post PCI, fibromyalgia, hyperlipidemia, hypertension, esophageal varices. Patient was recently admitted here in October 2018 for abnormal stress test and was evaluated by cardiology for possible LHC. However prior to LHC GI evaluation was requested due to patient's known history of cirrhosis and his anemia at that time. Endoscopy was performed during that admission which demonstrated grade 1 esophageal varices which were clipped. Afterwards patient was discharged to follow-up with cardiology outpatient because his hemoglobin was not stable for LHC at that time. He did not receive outpatient cardiology evaluation and is now presenting due to ca rdiac type chest pain. Troponins are negative however the patient is demonstrating inferior region EKG changes consistent with area of ischemia demonstrated on previous abnormal stress test. He also continues to be anemic on presentation, hemoglobin 8.6 on original evaluation. Gastroenterology ev aluation is being requested for possible endoscopy to evaluate known varices for any evidence of bleeding in anticipation of possible LHC this admission. On my evaluation patient confirms this history, confirms home medications of rifaximin and aspirin, denies any NSAID use or alcohol use, denies intravenous drug use or exposure to blood products. He denies any signs of bleeding including hemate mesis or melena or hematochezia. He denies any abdominal pain, nausea or vomiting, abdominal swelling or weight gain. He denies any history of requiring paracentesis for ascites. I explained to him that due to his current complaint of cardiac type chest pain there is consideration for possible cardiology intervention and because of that he may require evaluation with endoscopy to characterize varices or any signs of bleeding because otherwise cardiology cannot initiate antiplatelet therapy or anticoagulation. He stated he understood and agreed with the plan of care. Past Med Surg Social Fam HX - Past Medical History Medical history: cirrhosis, coronary artery disease, fibromyalgia, hyperlipidemia, hypertension, liver disease, renal disease Additional medical history: CAD Psychiatric history: no psych history - Past Surgical History Surgical History: angioplasty/stent, other Additional surgical history: EGD, heart cath with stents x3. - Social History Smoking Status: Current every day smoker Smokeless Tobacco Status: No Alcohol use: occasionally Drug use: none All systems PM: reviewed and no additional remarkable complaints except as stated - Constitutional Vitals: Temp Pulse Resp BP Pulse Ox 98.2 F 76 16 115/61 98 12/22/18 07:48 12/22/18 07:48 12/22/18 07:48 12/22/18 07:48 12/22/18 07:48 General appearance: Present: A&O X 3, no acute distress - Eye Eye exam: Present: EOMI, PERRL, sclera anicteric - Respiratory Respiratory exam: Present: CTAB - Cardiovascular Cardiovascular exam: Present: RRR - GI/Abdominal GI/Abdominal exam: Present: normal bowel sounds, soft, no peritoneal signs. Absent: diminished bowel sounds, firm, guarding, hepatomegaly, splenomegaly, tenderness Additional comments: No signs of ascites or telangiectasias - Extremities Exam Extremities exam: Present: radial pulses palpable and symmetrical Additional comments: Bilateral lower extremity 2+ pitting edema - Skin Skin exam: Present: dry, warm Additional comments: No jaundice Results - Labs CBC & Chem 7: 12/22/18 01:02 12/22/18 01:02 Labs: Last Result 12/22/18 12/22/18 01:02 07:35 Calcium 8.7 Troponin I < 0.03 < 0.03 Entire Visit 12/22/18 01:02 Hgb 8.6 L Hct 26.3 L - Impressions Impressions Chest X-Ray 12/22/18 00:44 IMPRESSION: Possible left upper lobe pulmonary infiltrate. D/ / Radhames Muir MD / Radhames Muir MD Interpreting Provider: Radhames Muir MD Consult Discharge Plan - Plan Instructions: Isosorbide Mononitrate (By mouth) Additional Instructions: Follow up with your PCP for reevaluation in 3-5 days. Have repeat hemoglobin and hematocrit labs drawn in 3 days. Continue taking your regular home medications. Continue to take imdur 30mg daily; a prescription for this has been sent to your pharmacy. Follow up with outpatient GI and cardiology services as scheduled. Return to the emergency department if you develop fevers, chills, dizziness, lightheadedness, weakness, signs of bleeding, or if any new concerns arise. Referrals: Rafael Fry MD [Partnered Physician] - (Referral made, physicians office will contact the patient to schedule a follow-up appointment. ) Afshan Olson DO [Primary Care Provider] - (Referral made, physicians o ffice will call the patient to schedule a follow-up appointment. ) Sabrina Powell DO [Resident] - (Patient wants to follow up with Dr. Powell. Will need reevaluation in 3-5 days. ) Prescriptions: Isosorbide MONOnitrate (24 HR) [Imdur] 30 mg PO DAILY #30 tab.er.24h <Rafael Fry - Last Filed: 01/17/19 08:44> Date of Encounter: 01/17/19 - Time Spent With Patient Total time spent is greater than 50% in coordination of care (as documented) at patient's floor/unit and/or counseling patient: GI History of Present Illness - Data of Consult Requesting Physician: Kenton Mehta MD - Consult Narrative History of present illness: Mr. Gillespie is a 64 year old male with cirrhosis and esophageal varices. Plan EGD. Will need angiogram Past Med Surg Social Fam HX - Family History Father Cause of : bleeding tumor in chest - Constitutional Vitals: Temp Pulse Resp BP Pulse Ox 98.4 F 80 16 124/68 96 12/26/18 11:08 12/26/18 11:08 12/26/18 11:08 12/26/18 11:08 12/26/18 11:08 Results - Labs CBC & Chem 7: 12/26/18 06:57 12/26/18 06:57 - ABG ABG results: PT/INR, D-dimer PT 19.3 Seconds (9.4-12.1) H 12/22/18 11:57
--- NOTE | 2018-12-22 11:49 | Anesthesia Evaluation PreOp ---
<Estuardo Del Cid - Last Filed: 12/22/18 11:47> Date of Encounter: 12/22/18 Time of Encounter: 11:47 - Past History Planned Operation: EGD Cardiac History: HTN, Hyperlipidemia, Cardiac Stent (2004), Other (POSITIVE STRESS TEST, NORMAL EF, CARDIAC KUMAR REPEADTEDLY DELAYED SEC ANEMIA, NORMAL TROPONINS) Pulmonary History: Former smoker Other Medical History: Hepatic (LIVER CIRRHOSIS, WITH ESOPHAGEAL VARICES), Renal (CKD3), Diabetes Type II, Other (CHRONIC BLOOD LOSS ANEMIA) Anesthesia History: No Prior Anesthetic Complications, Past Anesthesia Alcohol Use: occasionally Drug use: none Medications and Allergies Aspirin 81 mg PO DAILY 07/07/16 [History] Pantoprazole Sodium [Protonix] 40 mg PO BID 07/07/16 [History] Metoprolol Succinate [Toprol Xl] 25 mg PO HS 04/21/18 [History] Rifaximin [Xifaxan] 550 mg PO BID 05/31/18 [History] Loratadine [Allergy Relief] 10 mg PO DAILY 11/24/18 [History] Spironolactone [Aldactone] 100 mg PO DAILY 11/24/18 [History] Ferrous Sulfate 325 mg PO DAILY@0800 #30 tablet 11/26/18 [Rx] Allergy/AdvReac Type Severity Reaction Status Date / Time [id number] Reductase Allergy Cramping Verified 12/22/18 00:59 Inhibitor of the [Statins] Muscles - Meds/Allergy Pre-op Review Medications Reviewed: Yes Allergies Reviewed: Yes Anesthesia Results - Labs 12/22/18 01:02 12/22/18 01:02 Anesthesia Exam Vital Signs/O2 Sat/Glucose, Most Recent Temp Pulse Resp BP Pulse Ox 98.3 F 81 16 116/62 99 12/22/18 11:04 12/22/18 11:04 12/22/18 11:04 12/22/18 11:04 12/22/18 11:04 Weight: 103 KG - BMI 33 NPO (# of Hours): 8 - HEENT Mallampati: II Teeth: Edentulous - Cardiac Rhythm: Regular - Pulmonary Breath Sounds: bilateral Clear Anesthesia Assess/Plan ASA Score: 3 Anesthetic Plan: MAC Monitoring Plan: Standard Monitors Recovery Plan: Other <Beatriz Munoz - Last Filed: 12/22/18 13:08> Date of Encounter: 12/22/18 - Past History Cardiac History: [facility] (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 nuclear stress from ), Angina (unstable angina), Other Pulmonary History: Smoker [employer] History: Denies Any Significant HX Other Medical History: Bleeding (bleeding grade 1 varices s/p clipping October 2018 with slowly but steadily improving hgb) - Meds/Allergy Pre-op Review Beta Blockers on Current Med List: Yes (metoprolol) Anesthesia Results - Labs 12/22/18 01:02 12/22/18 01:02 - Imaging EKG: report reviewed, image reviewed (Sinus rhythm Limb lead reversal suggested Recommend repeat ECG) Additional studies: Nuclear stress: Indications: Shortness of breath with exertion Impression: Perfusion imaging was positive for infarct. There is a small sized fixed perfusion defect which is moderate in intensity in the basal inferior segment, no defininte ischemia. Exercise ECG was positive for ischemia. Exercise capacity was fair. Normal hemodynamic response. Patient had no chest pain with stress. Gated EF = 66%. The LV is dilated. There is no evidence of TID. Ordering physician notified by eCW TTE: EV/EV echocardiogram Impressions: Normal LV function with concentric LVH. Mild MR and TR Dilated LA and RA Anesthesia Exam - HEENT Pupil (Motor): Pupils equal Mallampati: II Teeth: Edentulous Oral Opening: Greater than 3 - [employer] LOC: Oriented - Cardiac Rhythm: Regular Murmur: Systolic (low grade) - Pulmonary Breath Sounds: bilateral Clear Respiratory Effort: Symmetrical Anesthesia Assess/Plan ASA Score: 3 Anesthetic Plan: MAC Monitoring Plan: Standard Monitors Recovery Plan: Other
[2018-12-22 12:37] LABS: Albumin 2.5 g/dL (3.5-5.7); Bilirubin,Direct 1.7 mg/dL (0.0-0.2); Bilirubin,Indirect 2.8 mg/dL (0.0-1.2); Bilirubin,Total 4.5 mg/dL (0.3-1.0); Globulin 2.6 g/dL (2.4-3.5); Total Protein 5.1 g/dL (6.4-8.9)
[2018-12-22 12:38] LABS: % Iron Saturation 30 % (20-55); INR 1.7; Iron 84 mcg/dL (65-175); Prothrombin Time 19.3 Seconds (9.4-12.1); Transferrin 200 mg/dL (203-362)
[2018-12-22] MEDS ORDERED: *HR* Propofol 200 MG/20 ML VIAL IVP ONE (12:44)
[2018-12-22] MEDS ORDERED: Propofol 500 MG/50 ML INFUS..BTL ONE (12:49)
[2018-12-22] MEDS: Metoprolol XL (24 HR) Succ 25 MG TAB.ER.24H PO SCH (21:14)
[2018-12-23 05:02] LABS: Immature Granulocytes % 0.4 % (0-4)
[2018-12-23 05:04] LABS: Basophils # 0.1 K/mcL (0.0-0.2); Eosinophils # 0.3 K/mcL (0.0-0.6); Eosinophils % 5.4 %; Hematocrit 25.5 % (37.5-50.1); Hemoglobin 8.2 g/dL (12.9-16.9); Immature Platelets 4.5 % (1.1-6.1); Lymphocytes % 20.3 %; Mean Corpuscular HGB Conc 32.2 g/dL (31.6-35.5); Mean Corpuscular Hemoglobin 32.3 pg (28.0-33.3); Mean Corpuscular Volume 100.4 fL (83.0-100.0); Mean Platelet Volume 11.4 fL (9.4-12.4); Monocytes # 0.5 K/mcL (0.0-1.3); Monocytes % 10.5 %; Neutrophils # 3.1 K/mcL (1.6-8.9); Red Blood Count 2.54 M/mcL (4.19-5.50); Red Cell Distribution Width 17.1 % (11.5-14.5); Segmented Neutrophils % 62.4 %
[2018-12-23 05:09] LABS: Platelet Count 85 K/mcL (140-400)
[2018-12-23 05:19] LABS: Calcium 8.4 mg/dL (8.6-10.3); Potassium 4.2 mEq/L (3.5-5.1)
--- NOTE | 2018-12-23 07:50 | Internal Med Progress Note ---
<Tameka Torres M - Last Filed: 12/23/18 11:42> Hospitalist Progress Note - Encounter Date of Encounter: 12/23/18 Time of Encounter: 08:50 - Subjective Interval History: Mr. Gillespie was examined at bedside today. No acute events overnight. Denied having chest pain, SOB, or shoulder pain at the moment. Described his pain yesterday as new kind of type that he hasn't experienced before; described it as dull, non-radiating pain, altho he felt shoulder discomfort. Pt has no new complaints today; denied fever, chills, fatigue, night sweats, LEE, palpitations, cough, wheezing or N/V/D. - Exam Vitals: Temp Pulse Resp BP Pulse Ox 97.9 F 85 16 97/58 98 12/23/18 07:39 12/23/18 07:39 12/23/18 07:39 12/23/18 07:39 12/23/18 07:39 Exam: Gen: Well-appearing, well-nourished in no acute distress Heart: RRR, normal S1, S2; no m/r/g. normal capillary refill Lungs: Soft crackles in lower lung paredes. CTAB, good air exchange b/l. No wheezing. Head: Normocephalic, atraumatic GI: Soft, round, nontender abdomen. BSx4. no organomegaly appreciated. : No suprapubic tenderness. no renal bruits appreciated. MSK: Edema in LE b/l, otherwise without cyanosis, clubbing. Skin: Warm and dry without rashes; slightly yellow-valente tinge Neuro: A&O x4, CN not formally tested but appear grossly intact. Moving all 4 extremities. Sensation in all 4 extremities intact. Psych: Normal, non-flat affect - Assessment and Plan (1) Chest pain Current Visit: Yes Status: Acute Assessment and Plan: Mr. Gillespie is a 63yo gentleman who p/w non-exertional CP, SOB, and L shoulder pain while sitting on a chair. Pain quality is dull and new to pt. ECG showed new inferior T-wave inversions in lead 3 and aVF, c/o inferior ischemia. Xray showed possible ANNEMARIE pulmonary infiltrate. +stress test 10/2018 for inferior ischemia. Stent delayed for Hgb recovery from recent varcieal bleeds of unk etiology which were clipped and banded. PMH of preserved EF 07/2018 and 3 stents in 2005. - Consult cardiology to guide tx and assess pt - Continue ASA 81mg po qam - Continue metoprolol 25mg po hs - Continue Spironolactone 100mg po qd (2) History of esophageal varices Current Visit: Yes Status: Chronic Assessment and Plan: Hx as above. - Continue Rifaxmin 550mg po bid - Continue PPI and zofran (3) Gastrointestinal bleed Current Visit: No Status: Acute Assessment and Plan: Hx and plan as above. (4) Anemia Current Visit: Yes Status: Chronic Assessment and Plan: 12/23/18 Hgb 8.2 and WNL of pt baseline. Iron studies suggest anemia of chronic disease as opposed to hemochromatosis, altho blood sample was 2+ icteric. Pt total bilirubin 4.5; pt skin had a yellow tinge. -Order and trend h/h; continue to monitor -Per GI, two-week outpatient follow-up and 4 week repeat EGD (5) Non-alcoholic cirrhosis Current Visit: Yes Status: Chronic Assessment and Plan: Probably the reason for variceal bleeds. Pt on rifaximin currently for prophylaxis. Tot bilirubin 4.5, indirect 2.8, direct 1.7; alk phos 149 c/o obstructive bile duct pathology. - Per GI, continue rifaximine, recommend lactulose as needed for 2-4 bowel movements daily, follow up outpatient in 2 weeks discuss further management (6) Obesity Current Visit: Yes Status: Acute Assessment and Plan: BMI 32.1 12/22/18. Probably contributing to NAFLD (7) Hyperbilirubinemia Current Visit: No Status: Acute Assessment and Plan: Likely 2/2 obstructive bile duct pathology. GI consult placed. DVT Prophylaxis: SCD - Time Spent with Patient Total time spent is greater than 50% in coordination of care (as documented) at patient's floor/unit and/or counseling patient: Internal Medicine: Result - Labs CBC & Chem 7: 12/23/18 04:26 12/23/18 04:26 Labs: Short CBC 12/23/18 Range/Units 04:26 WBC 5.0 (4.3-11.1) K/mcL Hgb 8.2 L (12.9-16.9) g/dL Hct 25.5 L (37.5-50.1) % Plt Count 85 L (140-400) K/mcL Neutrophils # 3.1 (1.6-8.9) K/mcL BMP 12/23/18 04:26 Sodium 140 Potassium 4.2 Chloride 114 H Carbon Dioxide 18 L BUN 11 Creatinine 1.45 H Glucose 100 Calcium 8.4 L Cardiac Enzymes 12/22/18 12/22/18 12/22/18 Range/Units 07:35 14:23 19:12 Troponin I < 0.03 < 0.03 < 0.03 (< 0.04) ng/mL Liver Function 12/22/18 Range/Units 11:57 Total Bilirubin 4.5 H (0.3-1.0) mg/dL Direct Bilirubin 1.7 H (0.0-0.2) mg/dL AST 29 (13-39) Units/L ALT 13 (7-52) Units/L Alkaline Phosphatase 149 H (34-104) Units/L Albumin 2.5 L (3.5-5.7) g/dL - ABG Interpretation ABG results: PT/INR, D-dimer PT 19.3 Seconds (9.4-12.1) H 12/22/18 11:57 Consult Discharge Plan - Plan Referrals: Afshan Olson DO [Primary Care Provider] - <Kenton Mehta - Last Filed: 12/23/18 12:40> Hospitalist Progress Note - Encounter Date of Encounter: 12/23/18 - Exam Vitals: Temp Pulse Resp BP Pulse Ox 98.1 F 88 18 101/51 99 12/23/18 11:15 12/23/18 11:15 12/23/18 11:15 12/23/18 11:15 12/23/18 11:15 - Assessment and Plan (1) CAD (coronary artery disease) Current Visit: Yes Status: Chronic (2) Anemia Current Visit: Yes Status: Chronic (3) Chest pain Current Visit: Yes Status: Acute (4) Tobacco abuse Current Visit: Yes Status: Acute - Time Spent with Patient Total time spent is greater than 50% in coordination of care (as documented) at patient's floor/unit and/or counseling patient: Internal Medicine: Result - Labs CBC & Chem 7: 12/23/18 04:26 12/23/18 04:26 Labs: Short CBC 12/23/18 Range/Units 04:26 WBC 5.0 (4.3-11.1) K/mcL Hgb 8.2 L (12.9-16.9) g/dL Hct 25.5 L (37.5-50.1) % Plt Count 85 L (140-400) K/mcL Neutrophils # 3.1 (1.6-8.9) K/mcL BMP 12/23/18 04:26 Sodium 140 Potassium 4.2 Chloride 114 H Carbon Dioxide 18 L BUN 11 Creatinine 1.45 H Glucose 100 Calcium 8.4 L Cardiac Enzymes 12/22/18 12/22/18 Range/Units 14:23 19:12 Troponin I < 0.03 < 0.03 (< 0.04) ng/mL Liver Function 12/22/18 Range/Units 11:57 Total Bilirubin 4.5 H (0.3-1.0) mg/dL Direct Bilirubin 1.7 H (0.0-0.2) mg/dL AST 29 (13-39) Units/L ALT 13 (7-52) Units/L Alkaline Phosphatase 149 H (34-104) Units/L Albumin 2.5 L (3.5-5.7) g/dL - ABG Interpretation ABG results: PT/INR, D-dimer PT 19.3 Seconds (9.4-12.1) H 12/22/18 11:57 - Attending Attestation I examined this patient and my medical decision-making was reviewed with the medical student. I agree with the documented findings, disposition and treatment plan as described except to the extent set forth below. 63 year old male with history of CAD with 3 stents, cirrhosis with history of variceal bleeds presented for left sided shoulder/chest pain and shortness of breath. He has history of abnormal stress test. 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 Troponin negative x4, EKG showed ST depressions and T wave inversions. On exam patient is in no acute distress, does have some pallor to skin, MM dry, heart sounds normal, cardiac sounds normal. Cardiology is consulted, patient may need LHC. BP is on lower/normal limits and renal function slightly worse than baseline, will hold spironolactone for today and re evaluate. Monitor H&H and vitals. <Tameka Torres - Last Filed: 12/23/18 11:42> (1) Chest pain Qualifiers: Chest pain type: chest pain due to myocardial ischemia Ischemic chest pain type: unstable angina pectoris Qualified Code(s): I20.0 - Unstable angina (3) Gastrointestinal bleed Qualifiers: GI bleed type/associated pathology: gastritis Qualified Code(s): K29.51 - Unspecified chronic gastritis with bleeding (4) Anemia Qualifiers: Anemia type: iron deficiency Iron deficiency anemia type: chronic blood loss Qualified Code(s): D50.0 - Iron deficiency anemia secondary to blood loss (chronic) (6) Obesity Qualifiers: Obesity type: unspecified obesity type Obesity classification: adult class 1 (BMI 30 - 34.9) Serious obesity comorbidity presence: with serious comorbidity Body mass index: BMI 32.0-32.9 Qualified Code(s): E66.9 - Obesity, unspecified; Z68.32 - Body mass index (BMI) 32.0-32.9, adult <EddiefredydionyKenton - Last Filed: 12/23/18 12:40> (1) CAD (coronary artery disease) Qualifiers: Coronary Disease-Associated Artery/Lesion type: [place] artery [place] vs. transplanted heart: [place] heart Associated angina: with unstable angina Qualified Code(s): I25.110 - Atherosclerotic heart disease of [place] coronary artery with unstable angina pectoris (2) Anemia Qualifiers: Anemia type: iron deficiency Iron deficiency anemia type: chronic blood loss Qualified Code(s): D50.0 - Iron deficiency anemia secondary to blood loss (chronic) (3) Chest pain Qualifiers: Chest pain type: chest pain due to myocardial ischemia Ischemic chest pain type: unstable angina pectoris Qualified Code(s): I20.0 - Unstable angina
--- NOTE | 2018-12-23 08:29 | Gastroenterology Progress Note ---
<Freddie El - Last Filed: 12/23/18 09:24> Date of Encounter: 12/23/18 Time of Encounter: 08:29 - Assessment and plan (1) Anemia Status: Suspected Assessment and plan: EGD yesterday demonstrated nonbleeding grade 1 esophageal varices and bleeding gastric antral vascular ectasias Antral ectasias were cauterized for hemostasis, see endoscopy report for full details Recommendation for continued medical management, two-week outpatient follow-up and 4 week repeat EGD No further GI intervention anticipated this admission Further recommendations per Dr. Fry Qualifiers: Anemia type: iron deficiency Iron deficiency anemia type: chronic blood loss Qualified Code(s): D50.0 - Iron deficiency anemia secondary to blood loss (chronic) (2) Non-alcoholic cirrhosis Status: Chronic Assessment and plan: Patient has known history of nonalcoholic cirrhosis, he does take rifaximin at home Currently no signs of encephalopathy or ascites, he does have known history of varices last known MELD-Na 19 and Child Bonner class C, current MELD score 21 Continue rifaximin, recommend lactulose as needed for 2-4 bowel movements daily Will follow up outpatient in 2 weeks discuss further management (3) History of esophageal varices Status: Chronic Assessment and plan: Grade 1 esophageal varices demonstrated on previous endoscopy October 2018 Grade 1 esophageal varices redemonstrated on endoscopy 12/22 (4) CAD (coronary artery disease) Status: Chronic Assessment and plan: History of coronary artery disease status post PCI in 2005 Recently admitted for abnormal stress test demonstrating inferior ischemia October 2018 Intervention was not performed due to anemia, outpatient evaluation was not completed Patient now returns with cardiac type chest pain and EKG changes correlating with inferior ischemia Cardiology consultation pending Qualifiers: Coronary Disease-Associated Artery/Lesion type: [place] artery [place] vs. transplanted heart: [place] heart Associated angina: with unstable angina Qualified Code(s): I25.110 - Atherosclerotic heart disease of [place] coronary artery with unstable angina pectoris - Time Spent With Patient Total time spent is greater than 50% in coordination of care (as documented) at patient's floor/unit and/or counseling patient: - Subjective Interval history: No adverse events overnight were acute complaints this morning. I did inform the patient of the results of his EGD including nonbleeding esophageal grade 1 varices and bleeding gastric antral vascular ectasia. I informed him of our recommendation to follow-up in the GI clinic in 2 weeks and to have repeat EGD in 4 weeks. He stated he understood and agreed with the plan of care. - Constitutional Vitals: Temp Pulse Resp BP Pulse Ox 97.9 F 85 16 97/58 98 12/23/18 07:39 12/23/18 07:39 12/23/18 07:39 12/23/18 07:39 12/23/18 07:39 General appearance: Present: A&O X 3, no acute distress - Eye Eye exam: Present: EOMI, PERRL - Respiratory Respiratory exam: Present: CTAB - Cardiovascular Cardiovascular exam: Present: RRR, systolic murmur - GI/Abdominal GI/Abdominal exam: Present: soft, no peritoneal signs. Absent: distended, firm, guarding, hepatomegaly, rigid, tenderness - Extremities Exam Extremities exam: Present: pedal edema (2+ bilateral), radial pulses palpable and symmetrical - Skin Skin exam: Present: dry, warm Results - Labs CBC & Chem 7: 12/23/18 04:26 12/23/18 04:26 Labs: Last Result 12/22/18 12/23/18 19:12 04:26 Calcium 8.4 L Troponin I < 0.03 Entire Visit 12/23/18 04:26 Hgb 8.2 L Hct 25.5 L - ABG ABG results: PT/INR, D-dimer PT 19.3 Seconds (9.4-12.1) H 12/22/18 11:57 Consult Discharge Plan - Plan Instructions: Isosorbide Mononitrate (By mouth) Additional Instructions: Follow up with your PCP for reevaluation in 3-5 days. Have repeat hemoglobin and hematocrit labs drawn in 3 days. Continue taking your regular home medications. Continue to take imdur 30mg daily; a prescription for this has been sent to your pharmacy. Follow up with outpatient GI and cardiology services as scheduled. Return to the emergency department if you develop fevers, chills, dizziness, lightheadedness, weakness, signs of bleeding, or if any new concerns arise. Referrals: Rafael Fry MD [Partnered Physician] - (Referral made, physicians office will contact the patient to schedule a follow-up appointment. ) Afshan Olson DO [Primary Care Provider] - (Referral made, physicians office will call the patient to schedule a follow-up appointment. ) Sabrina Powell DO [Resident] - (Patient wants to follow up with Dr. Powell. Will need reevaluation in 3-5 days. ) Prescriptions: Isosorbide MONOnitrate (24 HR) [Imdur] 30 mg PO DAILY #30 tab.er.24h <Rafael Fry - Last Filed: 01/17/19 08:36> Date of Encounter: 01/17/19 - Time Spent With Patient Total time spent is greater than 50% in coordination of care (as documented) at patient's floor/unit and/or counseling patient: - Constitutional Vitals: Temp Pulse Resp BP Pulse Ox 98.4 F 80 16 124/68 96 12/26/18 11:08 12/26/18 11:08 12/26/18 11:08 12/26/18 11:08 12/26/18 11:08 Results - Labs CBC & Chem 7: 12/26/18 06:57 12/26/18 06:57 - ABG ABG results: PT/INR, D-dimer PT 19.3 Seconds (9.4-12.1) H 12/22/18 11:57 - Attending Attestation Patient presents with iron deficiency anemia in a setting of cirrhosis, portal hypertension and varices. Plan EGD I examined this patient and my medical decision-making was reviewed with the Resident Physician. I agree with the documented findings, disposition and treatment plan as described except to the extent set forth below.
[2018-12-23] MEDS: Aspirin Enteric Coated 81 MG Tablet PO SCH (09:37)
[2018-12-23] MEDS: (Pravastatin Sodium [Pravachol] 40 MG) PO SCH (09:58)
--- NOTE | 2018-12-23 14:28 | Cardiology Consult Note ---
<Mike Mora - Last Filed: 12/23/18 14:24> Date of Encounter: 12/23/18 Time of Encounter: 13:00 Assessment and Plan (1) SOBOE (shortness of breath on exertion) Current Visit: Yes Status: Acute C/o ongoing SOB with exertion. Question anginal equivalent? Recent abnormal stress test: 10/2018 Perfusion imaging was positive for infarct. There is a small sized fixed perfusion defect which is moderate in intensity in the basal inferior segment, no defininte ischemia. Exercise ECG was positive for ischemia. Exercise capacity was fair. Normal hemodynamic response. Patient had no chest pain with stress. Gated EF = 66%. The LV is dilated. There is no evidence of TID. LHC initially ordered but cancelled due to GI bleed. Pt s/p repeat EGD yesterday and bleeding found. pt also has varicies. Bleeding treated with cauterization. Discussed with Dr. Fry (GI), okay from GI standpoint for LHC tomorrow. With re-occurring GI bleed LHC not strongly recommended for low risk stress test. Troponin negative. EKG with no acute changes from previous. Medical management vs LHC discussed. Pt and family would like to proceed with LHC and are considering transfer. We will keep NPO after MN and discuss with interventionalist tomorrow. Family voiced understanding. Continue asa, statin, and bb. Add imdur. (2) Abnormal stress test Current Visit: Yes Status: Acute (3) CAD (coronary artery disease) Current Visit: Yes Status: Chronic H/o prior PCI. Plavix d/c'd previously for GI bleed. Continue asa, statin, and bb. Qualifiers: Coronary Disease-Associated Artery/Lesion type: [place] artery [place] vs. transplanted heart: [place] heart Associated angina: with unstable angina Qualified Code(s): I25.110 - Atherosclerotic heart disease of [place] coronary artery with unstable angina pectoris (4) SOB (shortness of breath) Current Visit: No Status: Acute Discussion w patient/family: The assessment and plan as outlined above was discussed with the patient and/or family members who expressed understanding and agreement. All questions were answered. Thank you for involving us in the care of your patient. Please call with any questions. History of Present Illness Consult date: 12/23/18 Requesting physician: Aden Hickey Consult reason: SOB Chief complaint: SOB with exertion History of present illness: Mr. Gillespie is a 63 year old male with past medical history of CAD s/p PCI in 2005 to RCA, HTN, HLD, cirrhosis, esophogeal varices, and tobacco abuse. he presents with the c/o increasing SOB and left shoulder pain. Symptoms occurred yesterday at rest. he also c/o left hand tingling. He is now pain free. He was seen in November for abnormal stress test. [facility] ordered but cancelled due to acute GI bleed prior to procedure. He states that since his abnormal stress test he has experienced increased SOB with minimal exertion. No significant chest pain. Past Med Surg Social Fam HX - Past Medical History Medical history: cirrhosis, coronary artery disease, fibromyalgia, GI bleed (esophageal variceal bleed), hyperlipidemia, hypertension, liver disease, renal disease Additional medical history: CAD Psychiatric history: no psych history - Past Surgical History Surgical History: angioplasty/stent, other Additional surgical history: Heart cath with stents x3 (2005). EGD. Blood clot removal (age 6). - Social History Smoking Status: Current every day smoker Packs per day: /, weening down Smokeless Tobacco Status: No Alcohol use: occasionally Drug use: none - Family History Father Cause of : bleeding tumor in chest Medications and Allergies Pantoprazole Sodium [Protonix] 40 mg PO BID 07/07/16 [History] Metoprolol Succinate [Toprol Xl] 25 mg PO HS 04/21/18 [History] Rifaximin [Xifaxan] 550 mg PO BID 05/31/18 [History] Loratadine [Allergy Relief] 10 mg PO DAILY 11/24/18 [History] Aspirin [Adult Aspirin Regimen] 81 mg PO QAM 12/22/18 [History] Pravastatin Sodium [Pravachol] 40 mg PO DAILY 12/22/18 [History] Spironolactone 50 mg PO DAILY 12/22/18 [History] Allergy/AdvReac Type Severity Reaction Status Date / Time ferrous sulfate Allergy See Verified 12/22/18 20:14 Comments Dxpppad-Lde-Rtw Reductase Allergy Cramping Verified 12/22/18 20:14 Inhibitor of the [Statins] Muscles All Systems Review: The remainder of the systems were reviewed and are negative Physical Examination Vital Signs, Last 4 Hours Temp Pulse Resp BP Pulse Ox 12/23/18 11:15 98.1 F 88 18 101/51 99 General: Conversant, No Apparent Distress HEENT: Atraumatic, Normocephaly, Mucus Membranes Moist Neck: No JVD, Normal carotid pulses Cardiac: Reg Rate and Rhythm, Normal S1 and S2, No Murmur Lungs: Normal Breath Sounds, No Wheeze, Rales, Rhonchi Neuro: Alert and responsive, No focal deficits noted Abdomen: Soft, Non-Tender Skin: No rashes noted on visualized skin Musculoskeletal: No Chest Wall Tenderness Extremities: No Clubbing, No Cyanosis, No Edema, Normal Pulses Results 12/23/18 04:26 12/23/18 04:26 Lab Results 12/22/18 12/22/18 12/23/18 14:23 19:12 04:26 WBC 5.0 Hgb 8.2 L Hct 25.5 L Plt Count 85 L Sodium Potassium Chloride Carbon Dioxide BUN Creatinine Glucose Calcium Troponin I < 0.03 < 0.03 12/23/18 04:26 WBC Hgb Hct Plt Count Sodium 140 Potassium 4.2 Chloride 114 H Carbon Dioxide 18 L BUN 11 Creatinine 1.45 H Glucose 100 Calcium 8.4 L Troponin I - Imaging and Cardiology Stress Test: report reviewed Echo: report reviewed - EKG Interpretation EKG results cardiology: personally reviewed Consult Discharge Plan - Plan Referrals: Afshan Olson, [Primary Care Provider] - <Anoop Martin - Last Filed: 12/23/18 14:57> Date of Encounter: 12/23/18 - Attending Attestation I have personally performed a face to face evaluation on this patient. I have reviewed and agree with the care plan. History and Exam by me shows: Known CAD with low risk stress test several weeks ago. Had previously planned left heart cath but deferred due to GI bleed/ anemia. EGD yesterday showed some bleeding that was cauterized. With recent Gi procedure and continued anemia I would favor medical mgmt. from cardiac perspective. Pt. strongly prefers left heart catheterization. We will discuss with interventionalist but in the meantime pt. may desire tranfer to another facility. Assessment and Plan Discussion w patient/family: The assessment and plan as outlined above was discussed with the patient and/or family members who expressed understanding and agreement. All questions were answered. Thank you for involving us in the care of your patient. Please call with any questions. History of Present Illness History of present illness: Mr. Gillespie is a 63 year old male All Systems Review: The remainder of the systems were reviewed and are negative Physical Examination Vital Signs, Last 4 Hours Temp Pulse Resp BP Pulse Ox 12/23/18 11:15 98.1 F 88 18 101/51 99 Results 12/23/18 04:26 12/23/18 04:26 Lab Results 12/22/18 12/22/18 12/23/18 14:23 19:12 04:26 WBC 5.0 Hgb 8.2 L Hct 25.5 L Plt Count 85 L Sodium Potassium Chloride Carbon Dioxide BUN Creatinine Glucose Calcium Troponin I < 0.03 < 0.03 12/23/18 04:26 WBC Hgb Hct Plt Count Sodium 140 Potassium 4.2 Chloride 114 H Carbon Dioxide 18 L BUN 11 Creatinine 1.45 H Glucose 100 Calcium 8.4 L Troponin I
--- NOTE | 2018-12-23 15:16 | Electrocardiograph Report ---
[facility] Test Date: 2018-12-22 Pat Name: Aubrey Gillespie Department: 104 Room: 2NE27 Gender: M Adolescent Coordinator: : 1955 Requested By: Pan Eric Order Number: [id number] Reading MD: Jeramie Griamldo Measurements Intervals [place] Rate: 82 P: 42 MI: 140 QRS: 67 QRSD: 88 T: -1 QT: 370 QTc: 409 Interpretive Statements SINUS RHYTHM ST DEVIATION AND MODERATE T-WAVE ABNORMALITY, CONSIDER INFERIOR ISCHEMIA Electronically Signed On 12-23-2018 15:14:22 EDT by Jeramie Grimaldo
[2018-12-23] MEDS: Metoprolol XL (24 HR) Succ 25 MG TAB.ER.24H PO SCH (20:33)
[2018-12-24 02:04] LABS: Hemoglobin 7.7 g/dL (12.9-16.9)
[2018-12-24 02:06] LABS: Basophils # 0.1 K/mcL (0.0-0.2); Basophils % 0.9 %; Eosinophils # 0.3 K/mcL (0.0-0.6); Eosinophils % 5.3 %; Hematocrit 23.7 % (37.5-50.1); Immature Granulocytes % 0.5 % (0-4); Immature Platelets 3.5 % (1.1-6.1); Lymphocytes # 1.7 K/mcL (0.6-4.6); Mean Corpuscular HGB Conc 32.5 g/dL (31.6-35.5); Mean Corpuscular Hemoglobin 32.1 pg (28.0-33.3); Mean Corpuscular Volume 98.8 fL (83.0-100.0); Mean Platelet Volume 10.8 fL (9.4-12.4); Monocytes # 0.8 K/mcL (0.0-1.3); Monocytes % 12.9 %; Neutrophils # 3.4 K/mcL (1.6-8.9); Red Cell Distribution Width 16.8 % (11.5-14.5); Segmented Neutrophils % 53.4 %; White Blood Count 6.4 K/mcL (4.3-11.1)
[2018-12-24 02:12] LABS: Platelet Count 75 K/mcL (140-400)
[2018-12-24 02:23] LABS: BUN/Creatinine Ratio 10 (6-26); Blood Urea Nitrogen 14 mg/dL (8-23); Calcium 8.2 mg/dL (8.6-10.3); Carbon Dioxide 19 mEq/L (23-29); Chloride 113 mEq/L (98-107); Glucose 96 mg/dL (70-105); Osmolality,Calculated 288 (280-300); Potassium 3.7 mEq/L (3.5-5.1); Sodium 139 mEq/L (136-145); eGFR For African Americans > 60 (> 60); eGFR For Non-African Americans 54 (> 60)
[2018-12-24] MEDS: Isosorbide MONOnitrate (24 HR) 30 MG TAB.ER.24H PO SCH (08:17)
[2018-12-24] MEDS: Aspirin Enteric Coated 81 MG Tablet PO SCH (08:17)
[2018-12-24] MEDS: (Pravastatin Sodium [Pravachol] 40 MG) PO SCH (08:18)
--- NOTE | 2018-12-24 08:37 | Internal Med Progress Note ---
<Tameka Torres M - Last Filed: 12/24/18 15:32> Hospitalist Progress Note - Encounter Date of Encounter: 12/24/18 Time of Encounter: 08:30 - Subjective Interval History: Pt was seen at bedside today. Reported feeling same as yesterday. Was seen by cardio earlier in the day so pt knew about low hgb and hesitation to [facility]. Pt is adamant for not getting cathed but understands the hesitation to move fwd with [facility]. Pt and family had questions about the process and agreed to move forward with medical management. Reports that last chest pain was earlier this AM. Reports edema is better today. Denies fever, chills, LEE, SOB, cough, hemoptysis, palpitations, abdominal pain, N/V/D/C, melena, hematochezia, dysuria, or change in urinary freq or urg. - Exam Vitals: Temp Pulse Resp BP Pulse Ox 98.0 F 70 18 102/43 99 12/24/18 07:41 12/24/18 07:41 12/24/18 03:48 12/24/18 07:41 12/24/18 07:41 Exam: Gen: Well-appearing, well-nourished in no acute distress Heart: RRR, normal S1, S2; no m/r/g. normal capillary refill Lungs: Soft crackles in lower lung paredes. CTAB, good air exchange b/l. No wheezing. Head: Normocephalic, atraumatic MSK: Edema in LE b/l improving, otherwise without cyanosis, clubbing. Skin: Warm and dry without rashes; slightly yellow-valente tinge Neuro: A&O x3, CN not formally tested but appear grossly intact. Moving all 4 extremities. Sensation in all 4 extremities intact. Psych: Normal, non-flat affect - Assessment and Plan (1) Chest pain Current Visit: Yes Status: Acute Assessment and Plan: Non-exertional CP, SOB, and L shoulder pain while sitting on a chair. Pain quality is dull and new to pt. ECG showed new inferior T-wave inversions in lead 3 and aVF, c/o inferior ischemia. Xray showed possible [place] pulmonary infiltrate. +stress test 10/2018 for inferior ischemia. Stent delayed for Hgb recovery from recent varcieal bleeds of unk etiology which were clipped and banded. PMH of preserved EF 07/2018 and 3 stents in 2005. - Per cardiology rec's, pt elected to go with medical management not LHC. Out-pt f/u will be coordinated. - Continue ASA 81mg po qam - Continue metoprolol 25mg po hs - Continue Spironolactone 100mg po qd (2) History of esophageal varices Current Visit: Yes Status: Chronic Assessment and Plan: Hx as above. Today, Hgb decreased from 8.5 to 7.7; repeat H/H ~8-10h after showed hgb of 8.2 - Continue Rifaxmin 550mg po bid - Continue PPI and zofran (3) Gastrointestinal bleed Current Visit: No Status: Acute Assessment and Plan: Hx and plan as above. (4) Anemia Current Visit: Yes Status: Chronic Assessment and Plan: 12/24/18 Hgb decreased from 8.5 to 7.7; repeat H/H ~8-10h after showed hgb of 8.28. Iron studies suggest anemia of chronic disease as opposed to hemochromatosis, altho blood sample was 2+ icteric. Pt total bilirubin 4.5; pt skin had a yellow tinge. -Order and trend h/h; continue to monitor -Per GI, two-week outpatient follow-up and 4 week repeat EGD (5) Non-alcoholic cirrhosis Current Visit: Yes Status: Chronic Assessment and Plan: Probably the reason for variceal bleeds. Pt on rifaximin currently for prophylaxis. Tot bilirubin 4.5, indirect 2.8, direct 1.7; alk phos 149 c/o obstructive bile duct pathology. - Per GI, continue rifaximine, recommend lactulose as needed for 2-4 bowel movements daily, follow up outpatient in 2 weeks discuss further management (6) Obesity Current Visit: Yes Status: Acute Assessment and Plan: BMI 31.8 12/24/18. Probably contributing to NAFLD (7) Hyperbilirubinemia Current Visit: No Status: Acute Assessment and Plan: Likely 2/2 cirrhosis DVT Prophylaxis: SCD - Time Spent with Patient Total time spent is greater than 50% in coordination of care (as documented) at patient's floor/unit and/or counseling patient: Internal Medicine: Result - Labs CBC & Chem 7: 12/24/18 11:50 12/24/18 01:23 Labs: Short CBC 12/24/18 Range/Units 01:23 WBC 6.4 (4.3-11.1) K/mcL Hgb 7.7 L (12.9-16.9) g/dL Hct 23.7 L (37.5-50.1) % Plt Count 75 L (140-400) K/mcL Neutrophils # 3.4 (1.6-8.9) K/mcL BMP 12/24/18 01:23 Sodium 139 Potassium 3.7 Chloride 113 H Carbon Dioxide 19 L BUN 14 Creatinine 1.34 H Glucose 96 Calcium 8.2 L - ABG Interpretation ABG results: PT/INR, D-dimer PT 19.3 Seconds (9.4-12.1) H 12/22/18 11:57 Consult Discharge Plan - Plan Referrals: Afshan Olson DO [Primary Care Provider] - <Kenton Mehta - Last Filed: 12/24/18 19:10> Hospitalist Progress Note - Encounter Date of Encounter: 12/24/18 - Exam Vitals: Temp Pulse Resp BP Pulse Ox 98.3 F 76 18 94/59 94 12/24/18 15:14 12/24/18 15:14 12/24/18 03:48 12/24/18 15:14 12/24/18 15:14 - Assessment and Plan (1) CAD (coronary artery disease) Current Visit: Yes Status: Chronic (2) Anemia Current Visit: Yes Status: Chronic (3) Chest pain Current Visit: Yes Status: Acute (4) Tobacco abuse Current Visit: Yes Status: Acute - Time Spent with Patient Total time spent is greater than 50% in coordination of care (as documented) at patient's floor/unit and/or counseling patient: Internal Medicine: Result - Labs CBC & Chem 7: 12/24/18 11:50 12/24/18 01:23 Labs: Short CBC 12/24/18 12/24/18 Range/Units 01:23 11:50 WBC 6.4 (4.3-11.1) K/mcL Hgb 7.7 L 8.2 L (12.9-16.9) g/dL Hct 23.7 L 25.7 L (37.5-50.1) % Plt Count 75 L (140-400) K/mcL Neutrophils # 3.4 (1.6-8.9) K/mcL BMP 12/24/18 01:23 Sodium 139 Potassium 3.7 Chloride 113 H Carbon Dioxide 19 L BUN 14 Creatinine 1.34 H Glucose 96 Calcium 8.2 L - ABG Interpretation ABG results: PT/INR, D-dimer PT 19.3 Seconds (9.4-12.1) H 12/22/18 11:57 - Attending Attestation I examined this patient and my medical decision-making was reviewed with the resident physician. I agree with the documented findings, disposition and treatment plan as described except to the extent set forth below. Chest pain is no longer present. Denies SOB, N/V. On exam patient is in no acute distress, breath sounds diminished at based, but no labored breathing. Labs: reviewed, H&H 7.7. Follow-up Cardiology recs. Recheck H&H later, may need transfused if it stays <8.0. 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 transplanted heart: [place] heart Associated angina: with unstable angina Qualified Code(s): I25.110 - Atherosclerotic heart disease of [place] coronary artery with unstable angina pectoris (2) Anemia Qualifiers: Anemia type: iron deficiency Iron deficiency anemia type: chronic blood loss Qualified Code(s): D50.0 - Iron deficiency anemia secondary to blood loss (chronic) (3) Chest pain Qualifiers: Chest pain type: chest pain due to myocardial ischemia Ischemic chest pain type: unstable angina pectoris Qualified Code(s): I20.0 - Unstable angina
--- NOTE | 2018-12-24 10:49 | Cardiology Progress Note ---
Date of Encounter: 12/24/18 Time of Encounter: 08:00 Assessment and Plan (1) SOBOE (shortness of breath on exertion) Current Visit: Yes Status: Acute C/o ongoing SOB with exertion. Question anginal equivalent? Recent abnormal stress test: 10/2018 Perfusion imaging was positive for infarct. There is a small sized fixed perfusion defect which is moderate in intensity in the basal inferior segment, no defininte ischemia. Exercise ECG was positive for ischemia. Exercise capacity was fair. Normal hemodynamic response. Patient had no chest pain with stress. Gated EF = 66%. The LV is dilated. There is no evidence of TID. Echo 07/2018-Normal LV function with concentric LVH. Mild MR and TR Dilated LA and RA LHC initially ordered in October but cancelled due to acute GI bleed. Pt s/p repeat EGD yesterday and bleeding found. pt also has varicies. Bleeding treated with cauterization. Today Hgb decreased to 7.7 from 8.5. With re-occurring GI bleed LHC not strongly recommended for low risk stress test. Troponin negative. EKG with no acute changes from previous. Medical management vs LHC discussed. Patient aware of bleeding risk and now agrees with medical management. Continue asa, statin, and bb imdur. Out-pt f/u will be coordinated. Cardiology will sign off. (2) Abnormal stress test Current Visit: Yes Status: Acute See plan above. (3) CAD (coronary artery disease) Current Visit: Yes Status: Chronic H/o prior PCI. Plavix d/c'd previously for GI bleed. Continue asa, statin, and bb. Qualifiers: Coronary Disease-Associated Artery/Lesion type: [place] artery [place] vs. transplanted heart: [place] heart Associated angina: with unstable angina Qualified Code(s): I25.110 - Atherosclerotic heart disease of [place] coronary artery with unstable angina pectoris (4) SOB (shortness of breath) Current Visit: No Status: Acute Discussion w patient/family: The assessment and plan as outlined above was discussed with the patient and/or family members who expressed understanding and agreement. All questions were answered. Thank you for involving us in the care of your patient. Please call with any questions. Subjective Principal diagnosis: SOB Interval history: Patient is resting in bed with no complaints. States he still has SOB with physical exertion. Denies chest pain. He is currently off oxygen and SPO2 98%. Objective Vital Signs, Last 4 Hours Temp Pulse BP Pulse Ox 12/24/18 07:41 98.0 F 70 102/43 99 General: Conversant, No Apparent Distress HEENT: Atraumatic, Normocephaly, Mucus Membranes Moist Neck: No JVD, Normal carotid pulses Cardiac: Reg Rate and Rhythm, Normal S1 and S2, No Murmur Lungs: Normal Breath Sounds, No Wheeze, Rales, Rhonchi Neuro: Alert and responsive, No focal deficits noted Abdomen: Soft, Non-Tender Skin: No rashes noted on visualized skin Musculoskeletal: No Chest Wall Tenderness Extremities: No Clubbing, No Cyanosis, No Edema, Normal Pulses Results 12/24/18 01:23 12/24/18 01:23 Lab Results 12/24/18 12/24/18 01:23 01:23 WBC 6.4 Hgb 7.7 L Hct 23.7 L Plt Count 75 L Sodium 139 Potassium 3.7 Chloride 113 H Carbon Dioxide 19 L BUN 14 Creatinine 1.34 H Glucose 96 Calcium 8.2 L - Imaging and Cardiology Echo: report reviewed - EKG Interpretation EKG results cardiology: personally reviewed Consult Discharge Plan - Plan Referrals: Afshan Olson DO [Primary Care Provider] -
[2018-12-24 12:13] LABS: Hematocrit 25.7 % (37.5-50.1); Hemoglobin 8.2 g/dL (12.9-16.9)
[2018-12-24] MEDS: Metoprolol XL (24 HR) Succ 25 MG TAB.ER.24H PO SCH (21:59)
[2018-12-25 06:06] LABS: Red Blood Count 2.22 M/mcL (4.19-5.50)
[2018-12-25 06:08] LABS: Basophils # 0.1 K/mcL (0.0-0.2); Basophils % 1.1 %; Eosinophils # 0.3 K/mcL (0.0-0.6); Eosinophils % 5.2 %; Hematocrit 22.4 % (37.5-50.1); Hemoglobin 7.2 g/dL (12.9-16.9); Immature Granulocytes % 0.6 % (0-4); Immature Platelets 3.1 % (1.1-6.1); Lymphocytes # 1.6 K/mcL (0.6-4.6); Lymphocytes % 28.9 %; Mean Corpuscular HGB Conc 32.1 g/dL (31.6-35.5); Mean Corpuscular Hemoglobin 32.4 pg (28.0-33.3); Mean Corpuscular Volume 100.9 fL (83.0-100.0); Mean Platelet Volume 11.9 fL (9.4-12.4); Monocytes # 0.8 K/mcL (0.0-1.3); Monocytes % 14.5 %; Neutrophils # 2.7 K/mcL (1.6-8.9); Segmented Neutrophils % 49.7 %; White Blood Count 5.4 K/mcL (4.3-11.1)
[2018-12-25 06:09] LABS: Platelet Count 71 K/mcL (140-400)
[2018-12-25 06:34] LABS: BUN/Creatinine Ratio 10 (6-26); Blood Urea Nitrogen 14 mg/dL (8-23); Carbon Dioxide 21 mEq/L (23-29); Chloride 109 mEq/L (98-107); Glucose 130 mg/dL (70-105); Osmolality,Calculated 288 (280-300); Potassium 3.8 mEq/L (3.5-5.1); Sodium 138 mEq/L (136-145); eGFR For African Americans > 60 (> 60); eGFR For Non-African Americans 51 (> 60)
[2018-12-25] MEDS: Isosorbide MONOnitrate (24 HR) 30 MG TAB.ER.24H PO SCH (08:39)
[2018-12-25] MEDS: Aspirin Enteric Coated 81 MG Tablet PO SCH (08:39)
[2018-12-25] MEDS: (Pravastatin Sodium [Pravachol] 40 MG) PO SCH (08:40)
[2018-12-25 11:13] LABS: Hematocrit 23.7 % (37.5-50.1); Hemoglobin 7.7 g/dL (12.9-16.9)
--- NOTE | 2018-12-25 12:44 | Internal Med Progress Note ---
<Joselyn Sarmiento N - Last Filed: 12/25/18 12:46> Hospitalist Progress Note - Encounter Date of Encounter: 12/25/18 Time of Encounter: 12:42 - Subjective Interval History: Mr. Gillespie was seen and evaluated at the bedside this morning. He denies any shortness of breath, hematemesis, hematochezia, or dark tarry stools. He d oes report some short lasting intermittent chest discomfort. He endorses no new complaints or concerns. Nursing staff reports no significant overnight events. - Exam Vitals: Temp Pulse Resp BP Pulse Ox 98.2 F 83 16 108/60 97 12/25/18 12:05 12/25/18 12:05 12/25/18 12:05 12/25/18 12:05 12/25/18 12:05 Exam: GENERAL: Well-developed, well-nourished adult male in no acute distress. HEENT: Atraumatic and normocephalic. CARDIOVASCULAR: Regular rate and rhythm. S1 and S2 present. Systolic murmur appreciated. RESPIRATORY: Clear to auscultation bilaterally. Chest rises and falls symmetrically without accessory muscle use. GASTROINTESTINAL: Abdomen is soft, nontender, nondistended. EXTREMITIES: No clubbing, cyanosis, or edema. SKIN: Warm, dry, and intact. NEUROLOGIC: Alert and oriented x3. Patient is cooperative with exam and answers questions appropriately. No apparent focal deficits. PSYCHIATRIC: Appropriate mood and affect. - Assessment and Plan (1) Anemia Current Visit: Yes Status: Chronic Assessment and Plan: History of chronic anemia with baseline hemoglobin ~8 over the last 6 months. Throughout this hospitalization, patient has had a downward trend, from 8.6 at the time of admission to 7.2 today. Repeat hemoglobin this afternoon was slightly improved at 7.7. - Transfuse 1 unit PRBCs. - Repeat laboratory studies tomorrow morning. - Outpatient GI follow-up for ongoing management. (2) Chest pain Current Visit: Yes Status: Acute Assessment and Plan: Present on admission. On evaluation this morning, patient denies any ongoing chest pain or discomfort. Per cardiology note, patient has elected to continue with medical management of breath than [facility] at this time. - Continue aspirin 81 mg daily and metoprolol 25 mg daily. - Outpatient cardiology follow-up per their recommendations. (3) Gastrointestinal bleed Current Visit: No Status: Acute Assessment and Plan: Present on admission. EGD performed on 12/22/2018 was significant for grade 1 esophageal varices and gastric antral vascular ectasia with bleeding, which was treated with the monopolar probe. Since then, patient denies any signs of bleeding, including hematemesis, hematochezia, or dark stools. - Continue to monitor for signs and symptoms of recurrent bleed. - Outpatient GI follow-up for further management and treatment. (4) Nonalcoholic fatty liver disease without nonalcoholic steatohepatitis (NAVA) Current Visit: No Status: Chronic (5) DVT prophylaxis Current Visit: Yes Status: Acute Assessment and Plan: - SCDs. - Time Spent with Patient Total time spent is greater than 50% in coordination of care (as documented) at patient's floor/unit and/or counseling patient: Internal Medicine: Result - Labs CBC & Chem 7: 12/25/18 11:00 12/25/18 05:39 Labs: Short CBC 12/25/18 12/25/18 Range/Units 05:39 11:00 WBC 5.4 (4.3-11.1) K/mcL Hgb 7.2 L 7.7 L (12.9-16.9) g/dL Hct 22.4 L 23.7 L (37.5-50.1) % Plt Count 71 L (140-400) K/mcL Neutrophils # 2.7 (1.6-8.9) K/mcL BMP 12/25/18 05:39 Sodium 138 Potassium 3.8 Chloride 109 H Carbon Dioxide 21 L BUN 14 Creatinine 1.42 H Glucose 130 H Calcium 8.0 L - ABG Interpretation ABG results: PT/INR, D-dimer PT 19.3 Seconds (9.4-12.1) H 12/22/18 11:57 Consult Discharge Plan - Plan Referrals: Afshan Olson DO [Primary Care Provider] - <Kenton Mehta - Last Filed: 12/25/18 15:20> Hospitalist Progress Note - Encounter Date of Encounter: 12/25/18 - Exam Vitals: Temp Pulse Resp BP Pulse Ox 98.1 F 85 16 113/62 95 12/25/18 14:02 12/25/18 14:02 12/25/18 14:02 12/25/18 14:02 12/25/18 14:02 - Assessment and Plan (1) CAD (coronary artery disease) Current Visit: Yes Status: Chronic (2) Anemia Current Visit: Yes Status: Chronic (3) Chest pain Current Visit: Yes Status: Acute (4) Tobacco abuse Current Visit: Yes Status: Acute - Time Spent with Patient Total time spent is greater than 50% in coordination of care (as documented) at patient's floor/unit and/or counseling patient: Internal Medicine: Result - Labs CBC & Chem 7: 12/25/18 11:00 12/25/18 05:39 Labs: Short CBC 12/25/18 12/25/18 Range/Units 05:39 11:00 WBC 5.4 (4.3-11.1) K/mcL Hgb 7.2 L 7.7 L (12.9-16.9) g/dL Hct 22.4 L 23.7 L (37.5-50.1) % Plt Count 71 L (140-400) K/mcL Neutrophils # 2.7 (1.6-8.9) K/mcL BMP 12/25/18 05:39 Sodium 138 Potassium 3.8 Chloride 109 H Carbon Dioxide 21 L BUN 14 Creatinine 1.42 H Glucose 130 H Calcium 8.0 L - ABG Interpretation ABG results: PT/INR, D-dimer PT 19.3 Seconds (9.4-12.1) H 12/22/18 11:57 - Attending Attestation I examined this patient and my medical decision-making was reviewed with the resident physician. I agree with the documented findings, disposition and treatment plan as described except to the extent set forth below. ___ <Joselyn Sarmiento - Last Filed: 12/25/18 12:46> (1) Anemia Qualifiers: Anemia type: iron deficiency Iron deficiency anemia type: chronic blood loss Qualified Code(s): D50.0 - Iron deficiency anemia secondary to blood loss (chronic) (2) Chest pain Qualifiers: Chest pain type: chest pain due to myocardial ischemia Ischemic chest pain type: unstable angina pectoris Qualified Code(s): I20.0 - Unstable angina (3) Gastrointestinal bleed Qualifiers: GI bleed type/associated pathology: gastritis Qualified Code(s): K29.51 - Unspecified chronic gastritis with bleeding <Kenton Mehta - Last Filed: 12/25/18 15:20> (1) CAD (coronary artery disease) Qualifiers: Coronary Disease-Associated Artery/Lesion type: [place] artery [place] vs. transplanted heart: [place] heart Associated angina: with unstable angina Qualified Code(s): I25.110 - Atherosclerotic heart disease of [place] coronary artery with unstable angina pectoris (2) Anemia Qualifiers: Anemia type: iron deficiency Iron deficiency anemia type: chronic blood loss Qualified Code(s): D50.0 - Iron deficiency anemia secondary to blood loss (chronic) (3) Chest pain Qualifiers: Chest pain type: chest pain due to myocardial ischemia Ischemic chest pain type: unstable angina pectoris Qualified Code(s): I20.0 - Unstable angina
[2018-12-25] MEDS ORDERED: 0.9 % Sodium Chloride 250 ML ONE (13:20)
[2018-12-25] MEDS: Metoprolol XL (24 HR) Succ 25 MG TAB.ER.24H PO SCH (20:30)
[2018-12-26 07:15] LABS: Mean Corpuscular Volume 98.5 fL (83.0-100.0)
[2018-12-26 07:17] LABS: Basophils # 0.1 K/mcL (0.0-0.2); Eosinophils # 0.4 K/mcL (0.0-0.6); Eosinophils % 6.4 %; Hematocrit 26.5 % (37.5-50.1); Hemoglobin 8.8 g/dL (12.9-16.9); Immature Granulocytes % 0.5 % (0-4); Immature Platelets 3.4 % (1.1-6.1); Lymphocytes # 1.6 K/mcL (0.6-4.6); Lymphocytes % 26.7 %; Mean Corpuscular HGB Conc 33.2 g/dL (31.6-35.5); Mean Corpuscular Hemoglobin 32.7 pg (28.0-33.3); Mean Platelet Volume 11.4 fL (9.4-12.4); Monocytes # 0.8 K/mcL (0.0-1.3); Monocytes % 13.7 %; Red Blood Count 2.69 M/mcL (4.19-5.50); Red Cell Distribution Width 17.2 % (11.5-14.5); Segmented Neutrophils % 51.7 %; White Blood Count 6.1 K/mcL (4.3-11.1)
[2018-12-26 07:20] LABS: Neutrophils # 3.2 K/mcL (1.6-8.9); Platelet Count 73 K/mcL (140-400)
[2018-12-26 07:33] LABS: Calcium 8.8 mg/dL (8.6-10.3); Potassium 3.9 mEq/L (3.5-5.1)
--- NOTE | 2018-12-26 08:02 | Discharge Summary ---
<Kenton Mehta - Last Filed: 12/26/18 13:49> Date of Encounter: 12/26/18 - Discharge Diagnosis (1) CAD (coronary artery disease) Status: Chronic Qualifiers: Coronary Disease-Associated Artery/Lesion type: [place] artery [place] vs. transplanted heart: [place] heart Associated angina: with unstable angina Qualified Code(s): I25.110 - Atherosclerotic heart disease of [place] coronary artery with unstable angina pectoris (2) Anemia Status: Chronic Qualifiers: Anemia type: iron deficiency Iron deficiency anemia type: chronic blood loss Qualified Code(s): D50.0 - Iron deficiency anemia secondary to blood loss (chronic) (3) Chest pain Status: Acute Qualifiers: Chest pain type: chest pain due to myocardial ischemia Ischemic chest pain type: unstable angina pectoris Qualified Code(s): I20.0 - Unstable angina (4) Tobacco abuse Status: Acute Hospital course: Mr. Gillespie is a 63 year old male - Time Spent with Patient Total time spent providing and/or coordinating discharge services: - Discharge Medications Prescriptions: New Isosorbide MONOnitrate (24 HR) [Imdur] 30 mg PO DAILY #30 tab.er.24h Continued Pantoprazole Sodium [Protonix] 40 mg PO BID Metoprolol Succinate [Toprol Xl] 25 mg PO HS Rifaximin [Xifaxan] 550 mg PO BID Loratadine [Allergy Relief] 10 mg PO DAILY Aspirin [Adult Aspirin Regimen] 81 mg PO QAM Pravastatin Sodium [Pravachol] 40 mg PO DAILY Spironolactone 50 mg PO DAILY Home Medications: Pantoprazole Sodium [Protonix] 40 mg PO BID 07/07/16 [History] Metoprolol Succinate [Toprol Xl] 25 mg PO HS 04/21/18 [History] Rifaximin [Xifaxan] 550 mg PO BID 05/31/18 [History] Loratadine [Allergy Relief] 10 mg PO DAILY 11/24/18 [History] Aspirin [Adult Aspirin Regimen] 81 mg PO QAM 12/22/18 [History] Pravastatin Sodium [Pravachol] 40 mg PO DAILY 12/22/18 [History] Spironolactone 50 mg PO DAILY 12/22/18 [History] Isosorbide MONOnitrate (24 HR) [Imdur] 30 mg PO DAILY #30 tab.er.24h 08/18/19 [Rx] Allergies/Adverse Reactions: Allergy/AdvReac Type Severity Reaction Status Date / Time ferrous sulfate Allergy See Verified 12/22/18 20:14 Comments Klfweku-Ncl-Wob Reductase Allergy Cramping Verified 12/22/18 20:14 Inhibitor of the [Statins] Muscles Date of admission: 12/22/18 03:19 Primary care physician: Afshan Olson DO Consults: 12/22/18 08:59 Consult to Cardiology [CONS] Routine Comment: Consulting Provider: Cardiology Claire Reason for Consult: Abnormal Stress test in October 2018, SOB Call Completed: No Consult to Gastroenterology [CONS] Routine Consulting Provider: Gastroenterology Lafferty Reason for Consult: History of varices and GIB, may need [facility] Call Completed: Yes - Constitutional Vitals: Temp Pulse Resp BP Pulse Ox 98.4 F 80 16 124/68 96 12/26/18 11:08 12/26/18 11:08 12/26/18 11:08 12/26/18 11:08 12/26/18 11:08 - Patient Status Disposition: Home, Self-Care Condition: Good - Ambulatory Orders Ambulatory Orders: Hemoglobin and Hematocrit [HEME] Time Frame: 3 Days, Location: Determined By Patient - Discharge Instructions Instructions: Isosorbide Mononitrate (By mouth) Follow Up With: Rafael Fry MD [Partnered Physician] - (Referral made, physicians office will contact the patient to schedule a follow-up appointment. ) Afshan Olson DO [Primary Care Provider] - (Referral made, physicians office will call the patient to schedule a follow-up appointment. ) Sabrina Powell DO [Resident] - (Patient wants to follow up with Dr. Powell. Will need reevaluation in 3-5 days. ) Additional Instructions: Follow up with your PCP for reevaluation in 3-5 days. Have repeat hemoglobin and hematocrit labs drawn in 3 days. Continue taking your regular home medications. Continue to take imdur 30mg daily; a prescription for this has been sent to your pharmacy. Follow up with outpatient GI and cardiology services as scheduled. Return to the emergency department if you develop fevers, chills, dizziness, lightheadedness, weakness, signs of bleeding, or if any new concerns arise. - Attending Attestation I examined this patient and my medical decision-making was reviewed with the resident physician. I agree with the documented findings, disposition and treatment plan as described except to the extent set forth below. <Joselyn Sarmiento N - Last Filed: 12/26/18 15:10> - NOTES TO OUTPATIENT PROVIDER Notes to Outpatient Provider: Patient presented with chest pain. Endoscopy revealed grade 1 varices and gastric antral vascular ectasia with bleeding, which was cauterized. LHC was not recommended due to recurrent GI bleed. Patient did receive 1 unit PRBCs. Patient was started on new medication of Imdur by cardiology team. Recommendation for outpatient GI and cardiology follow-up. Per GI, recommend repeat EGD in 4 weeks. He is to have repeat hemoglobin and hematocrit drawn in 3 days to reevaluate anemia. Date of Encounter: 12/26/18 Time of Encounter: 08:02 - Discharge Diagnosis (1) Anemia Priority: Primary Status: Chronic Qualifiers: Anemia type: iron deficiency Iron deficiency anemia type: chronic blood loss Qualified Code(s): D50.0 - Iron deficiency anemia secondary to blood loss (chronic) (2) Chest pain Priority: Secondary Status: Acute Qualifiers: Chest pain type: chest pain due to myocardial ischemia Ischemic chest pain type: unstable angina pectoris Qualified Code(s): I20.0 - Unstable angina (3) Gastrointestinal bleed Priority: Secondary Status: Acute Qualifiers: GI bleed type/associated pathology: gastritis Qualified Code(s): K29.51 - Unspecified chronic gastritis with bleeding (4) Nonalcoholic fatty liver disease without nonalcoholic steatohepatitis (NAVA) Priority: Secondary Status: Chronic Hospital course: Mr. Gillespie is a 63 year old male with a history of CAD, cirrhosis, variceal bleed, hepatic encephalopathy, anemia, and tobacco use. He presented to the emergency department for evaluation of shortness of breath and left shoulder and chest pain. ECG was significant for depressions in leads II, III, and aVF, with mild T-wave inversions; troponin was negative. Patient's dis comfort did resolve while in the emergency department; however, patient was noted to have abnormal stress test in October of this year and a strong cardiac history, prompting hospital admission for further workup and management. Initial laboratory studies were significant for hemoglobin of 8.6, which was stable from previous evaluations. GI consult was placed in anticipation of possible cardiac intervention. EGD was performed on 12/22/2018, which was significant for grade 1 esophageal varices and gastric antral vascular ectasia with bleeding, which was treated with the monopolar probe. Patient was evaluated by cardiology, with recommendation for medical management rather than LHC due to ongoing anemia, recurrent GI bleed, and low risk stress test findings. Patient did have some intermittent recurrent chest pain throughout his hospital stay, and was started on Imdur by cardiology team. Hemoglobin globin continues to slowly trend down, prompting transfusion of 1 unit PRBCs. On day of discharge, patient reported no chest pain, abdominal pain, weakness, dizziness, lightheadedness, or signs/symptoms concerning for recurrent bleed. Patient is to follow-up with PCP in 3-5 days for evaluation, and with cardiology the outpatient clinic. He is also to follow-up in the outpatient GI clinic, with plan for repeat endoscopy in 4 weeks. He is to have repeat hemoglobin and hematocrit drawn in 3 days. Discharge discussed with: patient, nurse - Time Spent with Patient Total time spent providing and/or coordinating discharge services: Date of admission: 12/22/18 03:19 Primary care physician: Afshan Olson DO Consults: 12/22/18 08:59 Consult to Cardiology [CONS] Routine Comment: Consulting Provider: Cardiology Claire Reason for Consult: Abnormal Stress test in October 2018, SOB Call Completed: No Consult to Gastroenterology [CONS] Routine Consulting Provider: Gastroenterology Claire Reason for Consult: History of varices and GIB, may need LHC Call Completed: Yes Discharging clinician: Joselyn Sarmiento Anticipated date of discharge: 12/26/18 - Constitutional Vitals: Temp Pulse Resp BP Pulse Ox 98.2 F 81 18 124/66 95 12/26/18 07:34 12/26/18 07:34 12/26/18 07:34 12/26/18 07:34 12/26/18 07:34 Exam: GENERAL: Well-developed, well-nourished adult male in no acute distress. HEENT: Atraumatic and normocephalic. CARDIOVASCULAR: Regular rate and rhythm. S1 and S2 present. Systolic murmur appreciated. RESPIRATORY: Clear to auscultation bilaterally. Chest rises and falls symmetrically without accessory muscle use. GASTROINTESTINAL: Abdomen is soft, nontender, nondistended. EXTREMITIES: No clubbing, cyanosis, or edema. SKIN: Warm, dry, and intact. NEUROLOGIC: Alert and oriented x3. Patient is cooperative with exam and answers questions appropriately. No apparent focal deficits. PSYCHIATRIC: Appropriate mood and affect. - Patient Status Functional capacity at discharge: independent ambulation Overall status at discharge: patient is progressing back to baseline - Diet and Activity Activity: increase activity as tolerated Diet: other (Cardiac diet)
[2018-12-26] MEDS: Isosorbide MONOnitrate (24 HR) 30 MG TAB.ER.24H PO SCH (09:54)
[2018-12-26] MEDS: Aspirin Enteric Coated 81 MG Tablet PO SCH (09:54)
[2018-12-26] MEDS: (Pravastatin Sodium [Pravachol] 40 MG) PO SCH (09:55)
[2018-12-26 11:11] VITALS: BP 124/68
== END 2018-12-26 12:52 | disposition home or self-care (01) ==
LOC: 2NENU 00:34 → EMEROOARM 00:34 → SUATTDRO 03:19 → 2NENU 04:20
PROVIDERS: ADMIT Internal Medicine; ATTEND Student in an Organized Health Care Education/Training Program

== ENCOUNTER 2019-05-09 13:59 | Observation (INO) ==
[2019-05-09 16:43] LABS: Bacteria,Urine None Seen per hpf (None-Few); Bilirubin,Urine Negative (Negative); Blood,Urine Moderate (Negative); Clarity,Urine Cloudy (Clear); Color,Urine Dark Yellow (Yellow); Glucose,Urine (UA) Normal (Normal); Hyaline Casts,Urine None Seen per lpf (None-Few); Ketones,Urine Negative (Negative); Leukocyte Esterase,Urine Small (Negative); Nitrite,Urine Negative (Negative); Protein,Urine Negative (Neg-Trace); Specific Gravity,Urine 1.022 (1.010-1.025); Squamous Epithelial Cell,Urine Moderate per lpf (None-Few); Urobilinogen,Urine Normal (Normal)
[2019-05-09 16:56] LABS: Hematocrit 29.1 % (37.5-50.1); Immature Granulocytes % 0.2 % (0-4)
[2019-05-09 16:58] LABS: Basophils # 0.1 K/mcL (0.0-0.2); Basophils % 1.4 %; Eosinophils # 0.3 K/mcL (0.0-0.6); Eosinophils % 5.2 %; Immature Platelets 3.6 % (1.1-6.1); Lymphocytes # 1.4 K/mcL (0.6-4.6); Lymphocytes % 24.1 %; Mean Corpuscular HGB Conc 34.4 g/dL (31.6-35.5); Mean Corpuscular Hemoglobin 35.5 pg (28.0-33.3); Mean Corpuscular Volume 103.2 fL (83.0-100.0); Mean Platelet Volume 11.2 fL (9.4-12.4); Monocytes # 0.8 K/mcL (0.0-1.3); Monocytes % 13.5 %; Neutrophils # 3.2 K/mcL (1.6-8.9); Red Blood Count 2.82 M/mcL (4.19-5.50); Segmented Neutrophils % 55.6 %; White Blood Count 5.8 K/mcL (4.3-11.1)
[2019-05-09 17:03] LABS: Platelet Count 77 K/mcL (140-400)
[2019-05-09 17:14] LABS: Alanine Aminotransferase 17 Units/L (7-52); Albumin 2.8 g/dL (3.5-5.7); Alkaline Phosphatase 153 Units/L (34-104); Aspartate Amino Transferase 38 Units/L (13-39); BUN/Creatinine Ratio 5 (6-26); Bilirubin,Total 4.5 mg/dL (0.3-1.0); Blood Urea Nitrogen 7 mg/dL (8-23); Calcium 8.2 mg/dL (8.6-10.3); Carbon Dioxide 19 mEq/L (23-29); Chloride 115 mEq/L (98-107); Globulin 2.8 g/dL (2.4-3.5); Glucose 89 mg/dL (70-105); Osmolality,Calculated 283 (280-300); Potassium 4.1 mEq/L (3.5-5.1); Sodium 138 mEq/L (136-145); Total Protein 5.6 g/dL (6.4-8.9); Troponin I < 0.03 ng/mL (< 0.04); eGFR For African Americans > 60 (> 60); eGFR For Non-African Americans 51 (> 60)
[2019-05-09 17:28] LABS: Thyroid Stimulating Hormone 2.517 mcIU/mL (0.340-5.600)
[2019-05-09] MEDS ORDERED: Lactulose Oral Soln 20 GM/30 ML UDC PO ONE (17:56)
[2019-05-09] MEDS ORDERED: Naloxone 0.4 MG/ML INJ IVP PRN (21:30)
[2019-05-09 21:33] LABS: INR 1.5; Prothrombin Time 17.6 Seconds (9.4-12.1)
[2019-05-09 21:34] LABS: C-Reactive Protein < 5 mg/L (Less than 10)
[2019-05-09 22:13] LABS: Protein/Creatinine Ratio,Urine 0.08 mg/mg (0.00-0.20)
[2019-05-10 04:28] LABS: Basophils # 0.1 K/mcL (0.0-0.2); Basophils % 1.3 %; Eosinophils # 0.4 K/mcL (0.0-0.6); Hematocrit 25.6 % (37.5-50.1); Immature Granulocytes % 0.3 % (0-4); Immature Reticulocyte % 13.5 % (11.0-38.0); Lymphocytes # 1.7 K/mcL (0.6-4.6); Lymphocytes % 27.8 %; Mean Corpuscular HGB Conc 35.2 g/dL (31.6-35.5); Mean Corpuscular Hemoglobin 35.7 pg (28.0-33.3); Mean Corpuscular Volume 101.6 fL (83.0-100.0); Mean Platelet Volume 10.9 fL (9.4-12.4); Monocytes # 0.7 K/mcL (0.0-1.3); Monocytes % 12.3 %; Neutrophils # 3.1 K/mcL (1.6-8.9); Platelet Count 67 K/mcL (140-400); Red Blood Count 2.52 M/mcL (4.19-5.50); Red Cell Distribution Width 14.9 % (11.5-14.5); Retculocyte # 0.08 M/mcL (0.05-0.10); Reticulocyte % 3.3 % (1.6-2.8); Segmented Neutrophils % 52.3 %
[2019-05-10 04:32] LABS: Alanine Aminotransferase 16 Units/L (7-52); Albumin 2.6 g/dL (3.5-5.7); Alkaline Phosphatase 122 Units/L (34-104); Aspartate Amino Transferase 34 Units/L (13-39); BUN/Creatinine Ratio 6 (6-26); Blood Urea Nitrogen 8 mg/dL (8-23); Calcium 8.1 mg/dL (8.6-10.3); Carbon Dioxide 20 mEq/L (23-29); Chloride 114 mEq/L (98-107); Chol/HDL Ratio 3.4 (0-4.9); Cholesterol 103 mg/dL (< 200); Globulin 2.6 g/dL (2.4-3.5); Glucose 101 mg/dL (70-105); HDL Cholesterol 30 mg/dL (40-59); LDL Cholesterol,Calculated 57 mg/dL (0-99); Magnesium 2.1 mg/dL (1.6-2.6); Osmolality,Calculated 288 (280-300); Phosphorous 2.1 mg/dL (2.7-4.5); Potassium 3.9 mEq/L (3.5-5.1); Sodium 140 mEq/L (136-145); Total Protein 5.2 g/dL (6.4-8.9); Triglycerides 82 mg/dL (< 150); Troponin I < 0.03 ng/mL (< 0.04); eGFR For African Americans > 60 (> 60); eGFR For Non-African Americans 52 (> 60)
[2019-05-10] MEDS: Lactulose Oral Soln 20 GM/30 ML UDC PO SCH (17:00)
[2019-05-10] MEDS ORDERED: Metoprolol XL (24 HR) Succ 25 MG TAB.ER.24H PO SCH (21:00)
[2019-05-11] MEDS: Lactulose Oral Soln 20 GM/30 ML UDC PO SCH ×3 (00:26→13:30)
[2019-05-11] MEDS ORDERED: Aspirin Enteric Coated 81 MG Tablet PO SCH (09:00)
[2019-05-11 10:29] VITALS: BP 110/57
[2019-05-11] MEDS ORDERED: Isovue-370 500 ML BOTTLE IVP ONE (12:35)
== END 2019-05-11 16:00 | disposition home or self-care (01) ==
LOC: EMEROOARM 13:59 → 3ANU 13:59
PROVIDERS: ADMIT Internal Medicine; ATTEND Internal Medicine

== ENCOUNTER 2019-07-28 16:40 | Inpatient (IN) ==
[2019-07-28] MEDS ORDERED: Isovue-370 500 ML BOTTLE IVP ONE (16:53)
[2019-07-28] MEDS ORDERED: *HR* HYDROmorphone (PF) 1 MG/ML SYRINGE IVP ONE (16:54)
[2019-07-28 17:27] LABS: VBG HCO3 19 mEq/L (21-27); VBG PCO2 37 mmHg (41-51); VBG PH 7.31 pH Units (7.32-7.42); VBG PO2 94 mmHg (25-50)
[2019-07-28 17:29] LABS: Basophils % 0.3 %; Eosinophils # 0.1 K/mcL (0.0-0.6); Eosinophils % 0.8 %; Immature Granulocytes % 0.5 % (0-4); Lymphocytes # 0.3 K/mcL (0.6-4.6); Lymphocytes % 4.7 %; Mean Corpuscular HGB Conc 31.8 g/dL (31.6-35.5); Mean Platelet Volume 11.7 fL (9.4-12.4); Monocytes # 0.6 K/mcL (0.0-1.3); Monocytes % 9.1 %; Neutrophils # 5.6 K/mcL (1.6-8.9); Nucleated Red Blood Cells 0.3 /100 WBC (0); Red Cell Distribution Width 16.6 % (11.5-14.5); Segmented Neutrophils % 84.6 %; White Blood Count 6.6 K/mcL (4.3-11.1)
[2019-07-28 17:30] LABS: Platelet Count 99 K/mcL (140-400)
[2019-07-28 17:32] LABS: INR 1.9; Prothrombin Time 21.7 Seconds (9.4-12.1)
[2019-07-28 17:37] LABS: Alanine Aminotransferase 12 Units/L (7-52); Albumin 2.5 g/dL (3.5-5.7); Albumin/Globulin Ratio 1.1 (1.1-2.2); Alkaline Phosphatase 111 Units/L (34-104); Aspartate Amino Transferase 27 Units/L (13-39); BUN/Creatinine Ratio 9 (6-26); Bilirubin,Total 5.8 mg/dL (0.3-1.0); Blood Urea Nitrogen 14 mg/dL (8-23); Carbon Dioxide 19 mEq/L (23-29); Chloride 111 mEq/L (98-107); Globulin 2.3 g/dL (2.4-3.5); Glucose 177 mg/dL (70-105); Lipase 62 Units/L (11-82); Osmolality,Calculated 289 (280-300); Potassium 3.6 mEq/L (3.5-5.1); Sodium 137 mEq/L (136-145); Total Protein 4.8 g/dL (6.4-8.9); eGFR For African Americans 58 (> 60); eGFR For Non-African Americans 48 (> 60)
[2019-07-28] MEDS ORDERED: 0.9 % Sodium Chloride 1,000 ML IVC ONE (17:42)
[2019-07-28 17:44] LABS: Troponin I < 0.03 ng/mL (< 0.04)
[2019-07-28] MEDS ORDERED: Pantoprazole 40 MG VIAL IVP ONE (17:44)
[2019-07-28] MEDS ORDERED: Piperacillin/Tazobactam 3.375 GM in Water for inj. (sterile) 20 ML IVP ONE (17:49)
[2019-07-28] MEDS ORDERED: Ondansetron 4 MG/2 ML VIAL IVP ONE (18:11)
[2019-07-28 18:33] LABS: Bilirubin,Urine Small (Negative); Blood,Urine Large (Negative); Clarity,Urine Clear (Clear); Color,Urine Orange (Yellow); Glucose,Urine (UA) Normal (Normal); Ketones,Urine Trace mg/dL (Negative); Leukocyte Esterase,Urine Small (Negative); Nitrite,Urine Negative (Negative); PH,Urine 5.5 pH Units (5.0-8.0); Protein,Urine Negative (Neg-Trace); Specific Gravity,Urine 1.024 (1.010-1.025); Urobilinogen,Urine Normal (Normal)
[2019-07-28 18:38] LABS: Bacteria,Urine None Seen per hpf (None-Few); Hyaline Casts,Urine Few per lpf (None-Few); Squamous Epithelial Cell,Urine Moderate per lpf (None-Few); WBC,Urine 0-3 per hpf (0-3)
[2019-07-28] MEDS ORDERED: Azithromycin 500 MG in 0.9 % Sodium Chloride 250 ML IVPB ONE (18:39)
[2019-07-28 19:00] LABS: Mucus,Urine Moderate per lpf (Few)
[2019-07-28] MEDS ORDERED: 0.9 % Sodium Chloride 250 ML ONE (19:27)
[2019-07-28] MEDS ORDERED: Naloxone 0.4 MG/ML INJ IVP PRN (20:01)
[2019-07-28] MEDS ORDERED: Ondansetron 4 MG/2 ML VIAL IVP PRN (21:49)
[2019-07-28] MEDS: Piperacillin/Tazobactam 3.375 GM in 0.9 % Sodium Chloride Mini Bag 100 ML IVPB SCH (23:43)
[2019-07-29 01:07] LABS: Hematocrit 22.1 % (37.5-50.1); Hemoglobin 7.2 g/dL (12.9-16.9); Mean Corpuscular HGB Conc 32.6 g/dL (31.6-35.5); Mean Corpuscular Hemoglobin 34.3 pg (28.0-33.3); Mean Corpuscular Volume 105.2 fL (83.0-100.0); Red Blood Count 2.1 M/mcL (4.19-5.50)
[2019-07-29 01:08] LABS: Immature Platelets 4.2 % (1.1-6.1); Mean Platelet Volume 11.4 fL (9.4-12.4); Red Cell Distribution Width 18.5 % (11.5-14.5); White Blood Count 12.5 K/mcL (4.3-11.1)
[2019-07-29] MEDS: Pantoprazole 40 MG VIAL IVP SCH ×2 (05:41→17:51)
[2019-07-29 06:13] LABS: Mean Platelet Volume 11.9 fL (9.4-12.4)
[2019-07-29 06:15] LABS: Hematocrit 21.2 % (37.5-50.1); Hemoglobin 6.9 g/dL (12.9-16.9); Immature Platelets 4.9 % (1.1-6.1); Mean Corpuscular HGB Conc 32.5 g/dL (31.6-35.5); Mean Corpuscular Hemoglobin 34.3 pg (28.0-33.3); Mean Corpuscular Volume 105.5 fL (83.0-100.0); Red Blood Count 2.01 M/mcL (4.19-5.50); Red Cell Distribution Width 18.6 % (11.5-14.5); White Blood Count 12.1 K/mcL (4.3-11.1)
[2019-07-29 06:16] LABS: INR 2.4
[2019-07-29 06:33] LABS: Albumin 2.2 g/dL (3.5-5.7); Bilirubin,Direct 3.4 mg/dL (0.0-0.2); Bilirubin,Indirect 2.8 mg/dL (0.0-1.0); Bilirubin,Total 6.2 mg/dL (0.3-1.0); Calcium 7.8 mg/dL (8.6-10.3); Globulin 2.1 g/dL (2.4-3.5); Potassium 4.1 mEq/L (3.5-5.1); Total Protein 4.3 g/dL (6.4-8.9)
[2019-07-29] MEDS ORDERED: 0.9 % Sodium Chloride 250 ML IVC SCH (07:15)
[2019-07-29] MEDS: Piperacillin/Tazobactam 3.375 GM in 0.9 % Sodium Chloride Mini Bag 100 ML IVPB SCH (08:16)
[2019-07-29] MEDS ORDERED: 0.9 % Sodium Chloride 250 ML ONE (08:55)
[2019-07-29] MEDS ORDERED: Aminoglycoside Consult 1 EACH MC ONE (09:05)
[2019-07-29] MEDS: Lactulose Oral Soln 20 GM/30 ML UDC PO SCH ×3 (12:07→19:50)
[2019-07-29] MEDS: *HR* Phytonadione 5 MG TABLET PO SCH (13:22)
[2019-07-29] MEDS: cefTRIAXone 2,000 MG in Water for inj. (sterile) 20 ML IVP SCH (15:25)
[2019-07-29] MEDS: Albumin 25% 25gram/100mL 25 GM/100 ML IV.SOLN IVPB SCH ×4 (15:58→22:27)
[2019-07-29 16:25] LABS: Hematocrit 25.2 % (37.5-50.1)
[2019-07-29] MEDS ORDERED: Morphine Sulfate 2 MG/ML SYRINGE IVP ONE (20:38)
[2019-07-29] MEDS ORDERED: Metoprolol XL (24 HR) Succ 25 MG TAB.ER.24H PO ONE (20:40)
[2019-07-29] MEDS: Nitroglycerin 0.4 MG TAB.SUBL SL SCH ×3 (22:27→22:37)
[2019-07-29] MEDS: Azithromycin 500 MG in D5% in Water 250 ML IVPB SCH (22:28)
[2019-07-30] MEDS: Albumin 25% 25gram/100mL 25 GM/100 ML IV.SOLN IVPB SCH ×2 (01:20→04:25)
[2019-07-30 04:07] LABS: Basophils % 0.3 %; Hematocrit 20.9 % (37.5-50.1); Hemoglobin 6.8 g/dL (12.9-16.9); Mean Corpuscular HGB Conc 32.5 g/dL (31.6-35.5); Nucleated Red Blood Cells 0.3 /100 WBC (0); Red Cell Distribution Width 21.1 % (11.5-14.5); Segmented Neutrophils % 74.5 %
[2019-07-30 04:09] LABS: Eosinophils # 0.2 K/mcL (0.0-0.6); Eosinophils % 1.3 %; Immature Platelets 7.1 % (1.1-6.1); Lymphocytes # 1.2 K/mcL (0.6-4.6); Lymphocytes % 10.7 %; Mean Corpuscular Hemoglobin 33.5 pg (28.0-33.3); Mean Platelet Volume 12.2 fL (9.4-12.4); Monocytes # 1.4 K/mcL (0.0-1.3); Monocytes % 12.2 %; Neutrophils # 8.6 K/mcL (1.6-8.9); Red Blood Count 2.03 M/mcL (4.19-5.50); White Blood Count 11.5 K/mcL (4.3-11.1)
[2019-07-30 04:11] LABS: INR 2.7; Prothrombin Time 30.2 Seconds (9.4-12.1)
[2019-07-30 04:13] LABS: Platelet Count 66 K/mcL (140-400)
[2019-07-30 04:26] LABS: Calcium 8.6 mg/dL (8.6-10.3); Potassium 3.5 mEq/L (3.5-5.1)
[2019-07-30] MEDS: Pantoprazole 40 MG VIAL IVP SCH ×2 (06:31→17:31)
[2019-07-30] MEDS: Ipratropium/Albuterol Neb 3 ML IH PRN (08:21)
[2019-07-30] MEDS ORDERED: *HR* LORazepam 2 MG/ML VIAL IVP ONE (08:26)
[2019-07-30] MEDS ORDERED: Furosemide 20 MG/2 ML VIAL IVP ONE ×2 (10:00→10:24)
[2019-07-30] MEDS ORDERED: Haloperidol Lactate 5 MG/ML VIAL IVP ONE ×2 (10:25→16:00)
[2019-07-30] MEDS: Lactulose Oral Soln 20 GM/30 ML UDC PO SCH ×3 (10:28→22:01)
[2019-07-30] MEDS: *HR* Phytonadione 5 MG TABLET PO SCH (11:06)
[2019-07-30] MEDS ORDERED: Furosemide 40 MG/4 ML VIAL IVP ONE (13:00)
[2019-07-30 13:09] LABS: Adenovirus Not Detected (Not Detect); Bordetella Pertussis Not Detected (Not Detect); Chlamydophila pneumoniae Not Detected (Not Detect); Coronavirus 229E Not Detected (Not Detect); Coronavirus HKU1 Not Detected (Not Detect); Coronavirus NL63 Not Detected (Not Detect); Coronavirus OC43 Not Detected (Not Detect); Human Metapneumovirus Not Detected (Not Detect); Human Rhinovirus/Enterovirus Not Detected (Not Detect); Influenza A Subtype 2009 H1 Not Detected (Not Detect); Influenza B Not Detected (Not Detect); Mycoplasma pneumoniae Not Detected (Not Detect); Parainfluenza Virus 1 Not Detected (Not Detect); Parainfluenza Virus 2 Not Detected (Not Detect); Parainfluenza Virus 3 Not Detected (Not Detect); Parainfluenza Virus 4 Not Detected (Not Detect); Respiratory Syncytial Virus Not Detected (Not Detect)
[2019-07-30] MEDS ORDERED: Octreotide 50 MCG/ML INJ IVP ONE (13:36)
[2019-07-30] MEDS: cefTRIAXone 2,000 MG in Water for inj. (sterile) 20 ML IVP SCH (14:44)
[2019-07-30] MEDS: Octreotide 400 MCG in 0.9 % Sodium Chloride 100 ML IVC SCH ×2 (14:45→22:02)
[2019-07-30 19:29] LABS: Hematocrit 23.5 % (37.5-50.1); Hemoglobin 7.6 g/dL (12.9-16.9)
[2019-07-30] MEDS: Furosemide 40 MG/4 ML VIAL IVP ONE (20:18)
[2019-07-30] MEDS: Azithromycin 500 MG in D5% in Water 250 ML IVPB SCH (22:01)
[2019-07-30] MEDS ORDERED: haloperidoL 1 MG TABLET PO PRN (22:37)
[2019-07-30] MEDS: Acetaminophen 325 MG TABLET PO PRN (22:47)
[2019-07-30 23:35] LABS: ABG Base Excess -4 mEq/L (-2 to 3); ABG HCO3 20 mEq/L (21-27); ABG Oxygen Saturation 94 % (95-98); ABG PCO2 28 mmHg (35-45); ABG PH 7.45 pH Units (7.32-7.45); ABG PO2 66 mmHg (85-104); ABG TCO2 21 mEq/L (20-26)
[2019-07-31 02:01] LABS: INR 2.3; Prothrombin Time 26.7 Seconds (9.4-12.1)
[2019-07-31 02:03] LABS: Basophils % 0.2 %; Hemoglobin 7.2 g/dL (12.9-16.9)
[2019-07-31 02:05] LABS: Eosinophils % 0.3 %; Hematocrit 22.5 % (37.5-50.1); Immature Granulocytes % 1.2 % (0-4); Immature Platelets 7.2 % (1.1-6.1); Lymphocytes % 7.5 %; Mean Corpuscular Hemoglobin 32.6 pg (28.0-33.3); Mean Corpuscular Volume 101.8 fL (83.0-100.0); Mean Platelet Volume 12.2 fL (9.4-12.4); Monocytes # 1.2 K/mcL (0.0-1.3); Monocytes % 9.2 %; Neutrophils # 10.5 K/mcL (1.6-8.9); Nucleated Red Blood Cells 0.4 /100 WBC (0); Red Blood Count 2.21 M/mcL (4.19-5.50); Red Cell Distribution Width 22.1 % (11.5-14.5); Segmented Neutrophils % 81.6 %; White Blood Count 12.9 K/mcL (4.3-11.1)
[2019-07-31 02:07] LABS: Platelet Count 59 K/mcL (140-400)
[2019-07-31 02:18] LABS: Calcium 8.3 mg/dL (8.6-10.3); Potassium 3.5 mEq/L (3.5-5.1)
[2019-07-31] MEDS: Octreotide 400 MCG in 0.9 % Sodium Chloride 100 ML IVC SCH ×2 (05:40→16:32)
[2019-07-31] MEDS: Pantoprazole 40 MG VIAL IVP SCH ×2 (05:41→17:25)
[2019-07-31] MEDS ORDERED: Furosemide 40 MG/4 ML VIAL IVP ONE ×2 (07:34→17:47)
[2019-07-31] MEDS: Lactulose Oral Soln 20 GM/30 ML UDC PO SCH ×3 (09:18→22:07)
[2019-07-31] MEDS: *HR* Phytonadione 5 MG TABLET PO SCH (09:18)
[2019-07-31] MEDS: Albumin 25% 25gram/100mL 25 GM/100 ML IV.SOLN IVPB SCH ×3 (10:06→23:11)
[2019-07-31 14:03] LABS: Bilirubin,Urine Negative (Negative); Blood,Urine Large (Negative); Clarity,Urine Cloudy (Clear); Color,Urine Yellow (Yellow); Glucose,Urine (UA) Normal (Normal); Ketones,Urine Negative (Negative); Leukocyte Esterase,Urine Small (Negative); Nitrite,Urine Negative (Negative); PH,Urine 5.5 pH Units (5.0-8.0); Protein,Urine Trace mg/dL (Neg-Trace); Urobilinogen,Urine Normal (Normal)
[2019-07-31 14:05] LABS: Bacteria,Urine None Seen per hpf (None-Few); Hyaline Casts,Urine None Seen per lpf (None-Few); RBC,Urine 15-30 per hpf (0-3); Squamous Epithelial Cell,Urine Few per lpf (None-Few)
[2019-07-31 14:59] LABS: Hemoglobin 7.2 g/dL (12.9-16.9)
[2019-07-31 15:07] LABS: INR 2.1; Prothrombin Time 24.3 Seconds (9.4-12.1)
[2019-07-31] MEDS: cefTRIAXone 2,000 MG in Water for inj. (sterile) 20 ML IVP SCH (15:47)
[2019-07-31] MEDS: Furosemide 40 MG/4 ML VIAL IVP ONE (21:38)
[2019-07-31] MEDS: Azithromycin 500 MG in D5% in Water 250 ML IVPB SCH (21:48)
[2019-07-31] MEDS: Metoprolol XL (24 HR) Succ 25 MG TAB.ER.24H PO SCH (21:58)
[2019-07-31] MEDS: Acetaminophen 325 MG TABLET PO PRN (22:07)
[2019-08-01 02:45] LABS: Mean Platelet Volume 11.8 fL (9.4-12.4)
[2019-08-01 02:47] LABS: Basophils % 0.2 %; Eosinophils # 0.1 K/mcL (0.0-0.6); Hematocrit 23.8 % (37.5-50.1); Hemoglobin 7.6 g/dL (12.9-16.9); Immature Platelets 6.2 % (1.1-6.1); Lymphocytes # 0.7 K/mcL (0.6-4.6); Mean Corpuscular HGB Conc 31.9 g/dL (31.6-35.5); Mean Corpuscular Hemoglobin 31.9 pg (28.0-33.3); Monocytes % 12.6 %; Nucleated Red Blood Cells 0.6 /100 WBC (0); Red Blood Count 2.38 M/mcL (4.19-5.50); Segmented Neutrophils % 77.2 %; White Blood Count 8.2 K/mcL (4.3-11.1)
[2019-08-01 02:48] LABS: Neutrophils # 6.3 K/mcL (1.6-8.9); Platelet Count 49 K/mcL (140-400)
[2019-08-01 02:51] LABS: INR 1.9; Prothrombin Time 21.1 Seconds (9.4-12.1)
[2019-08-01 03:14] LABS: Calcium 8.7 mg/dL (8.6-10.3); Potassium 3.4 mEq/L (3.5-5.1); Troponin I 1.07 ng/mL (< 0.04)
[2019-08-01] MEDS: Octreotide 400 MCG in 0.9 % Sodium Chloride 100 ML IVC SCH ×3 (03:37→21:30)
[2019-08-01] MEDS: Albumin 25% 25gram/100mL 25 GM/100 ML IV.SOLN IVPB SCH (03:57)
[2019-08-01] MEDS: Pantoprazole 40 MG VIAL IVP SCH ×2 (05:32→17:51)
[2019-08-01] MEDS: Lactulose Oral Soln 20 GM/30 ML UDC PO SCH ×3 (07:51→21:32)
[2019-08-01] MEDS: cefTRIAXone 2,000 MG in Water for inj. (sterile) 20 ML IVP SCH (15:53)
[2019-08-01 16:06] LABS: Basophils % 0.3 %; Eosinophils % 0.5 %; Monocytes % 14.1 %; Red Cell Distribution Width 22.5 % (11.5-14.5)
[2019-08-01 16:08] LABS: Eosinophils # 0.1 K/mcL (0.0-0.6); Hematocrit 25.4 % (37.5-50.1); Hemoglobin 8.2 g/dL (12.9-16.9); Immature Granulocytes % 0.9 % (0-4); Immature Platelets 6.3 % (1.1-6.1); Lymphocytes # 0.6 K/mcL (0.6-4.6); Lymphocytes % 6.2 %; Mean Corpuscular HGB Conc 32.3 g/dL (31.6-35.5); Mean Corpuscular Hemoglobin 32.8 pg (28.0-33.3); Mean Corpuscular Volume 101.6 fL (83.0-100.0); Mean Platelet Volume 11.6 fL (9.4-12.4); Monocytes # 1.3 K/mcL (0.0-1.3); Neutrophils # 7.2 K/mcL (1.6-8.9); Nucleated Red Blood Cells 0.3 /100 WBC (0); White Blood Count 9.2 K/mcL (4.3-11.1)
[2019-08-01 16:30] LABS: Platelet Count 58 K/mcL (140-400)
[2019-08-01 16:31] LABS: Polychromasia 1+ (Not Present)
[2019-08-01] MEDS ORDERED: SODIUM CHLORIDE/NAHCO3/KCL/PEG 4,000 ML SOLN.RECON PO ONE (17:00)
[2019-08-01] MEDS: Metoprolol XL (24 HR) Succ 25 MG TAB.ER.24H PO SCH (21:32)
[2019-08-01] MEDS: Azithromycin 500 MG in D5% in Water 250 ML IVPB SCH (21:35)
[2019-08-01] MEDS ORDERED: Azithromycin 500 MG VIAL ONE (21:35)
[2019-08-02 04:43] LABS: Hemoglobin 8.5 g/dL (12.9-16.9); Red Cell Distribution Width 22.5 % (11.5-14.5)
[2019-08-02 04:45] LABS: Basophils % 0.2 %; Eosinophils # 0.2 K/mcL (0.0-0.6); Eosinophils % 1.9 %; Immature Platelets 6.3 % (1.1-6.1); Lymphocytes # 0.8 K/mcL (0.6-4.6); Mean Corpuscular HGB Conc 31.5 g/dL (31.6-35.5); Mean Corpuscular Hemoglobin 32.1 pg (28.0-33.3); Mean Corpuscular Volume 101.9 fL (83.0-100.0); Monocytes # 1.6 K/mcL (0.0-1.3); Monocytes % 14.6 %; Neutrophils # 8.3 K/mcL (1.6-8.9); Red Blood Count 2.65 M/mcL (4.19-5.50); Segmented Neutrophils % 75.3 %
[2019-08-02 04:53] LABS: Platelet Count 65 K/mcL (140-400)
[2019-08-02 04:57] LABS: Alanine Aminotransferase 11 Units/L (7-52); Albumin 3.9 g/dL (3.5-5.7); Alkaline Phosphatase 60 Units/L (34-104); Aspartate Amino Transferase 25 Units/L (13-39); BUN/Creatinine Ratio 19 (6-26); Bilirubin,Total 8.9 mg/dL (0.3-1.0); Blood Urea Nitrogen 27 mg/dL (8-23); Calcium 8.7 mg/dL (8.6-10.3); Carbon Dioxide 21 mEq/L (23-29); Chloride 106 mEq/L (98-107); Glucose 100 mg/dL (70-105); Osmolality,Calculated 283 (280-300); Potassium 3.5 mEq/L (3.5-5.1); Sodium 134 mEq/L (136-145); Total Protein 5.9 g/dL (6.4-8.9); eGFR For African Americans > 60 (> 60); eGFR For Non-African Americans 50 (> 60)
[2019-08-02 05:08] LABS: INR 2.1; Prothrombin Time 23.8 Seconds (9.4-12.1)
[2019-08-02] MEDS: Pantoprazole 40 MG VIAL IVP SCH ×2 (05:42→17:51)
[2019-08-02] MEDS: Lactulose Oral Soln 20 GM/30 ML UDC PO SCH ×3 (07:38→20:24)
[2019-08-02] MEDS: Octreotide 400 MCG in 0.9 % Sodium Chloride 100 ML IVC SCH (07:38)
[2019-08-02] MEDS: Furosemide 40 MG/4 ML VIAL IVP SCH ×2 (10:15→20:24)
[2019-08-02] MEDS ORDERED: *HR* Etomidate 40 MG/20 ML VIAL IVP ONE (11:09)
[2019-08-02] MEDS ORDERED: *HR* Propofol 200 MG/20 ML VIAL IVP ONE (11:09)
[2019-08-02] MEDS ORDERED: Lidocaine -MPF 2% 2 ML VIAL ONE (11:19)
[2019-08-02] MEDS: cefTRIAXone 2,000 MG in Water for inj. (sterile) 20 ML IVP SCH (14:57)
[2019-08-02] MEDS: Metoprolol XL (24 HR) Succ 25 MG TAB.ER.24H PO SCH (20:25)
[2019-08-02] MEDS: Azithromycin 500 MG in D5% in Water 250 ML IVPB SCH (21:49)
[2019-08-02 23:29] LABS: Sodium, Urine 50.9 mEq/L
[2019-08-03 01:08] LABS: Mean Corpuscular Hemoglobin 32.7 pg (28.0-33.3); Red Blood Count 2.75 M/mcL (4.19-5.50)
[2019-08-03 01:10] LABS: Hematocrit 28.2 % (37.5-50.1); Immature Platelets 5.4 % (1.1-6.1); Mean Corpuscular HGB Conc 31.9 g/dL (31.6-35.5); Mean Corpuscular Volume 102.5 fL (83.0-100.0); Red Cell Distribution Width 22.5 % (11.5-14.5); White Blood Count 12.3 K/mcL (4.3-11.1)
[2019-08-03 01:26] LABS: Calcium 8.5 mg/dL (8.6-10.3); Potassium 3.4 mEq/L (3.5-5.1)
[2019-08-03] MEDS: Pantoprazole 40 MG VIAL IVP SCH ×2 (04:56→16:54)
[2019-08-03] MEDS: Furosemide 40 MG/4 ML VIAL IVP SCH ×2 (07:56→20:02)
[2019-08-03] MEDS: Lactulose Oral Soln 20 GM/30 ML UDC PO SCH ×3 (07:56→20:01)
[2019-08-03] MEDS: Spironolactone 25 MG TABLET PO SCH (11:26)
[2019-08-03] MEDS: Albumin 25% 25gram/100mL 25 GM/100 ML IV.SOLN IVPB SCH ×2 (11:26→13:04)
[2019-08-03] MEDS: cefTRIAXone 2,000 MG in Water for inj. (sterile) 20 ML IVP SCH (13:50)
[2019-08-03] MEDS: Thiamine (B-1) 100 MG TABLET PO SCH (13:50)
[2019-08-03] MEDS: Folic Acid 1 MG TABLET PO SCH (13:50)
[2019-08-03] MEDS: Sucralfate 1 GM TABLET PO SCH (16:54)
[2019-08-03] MEDS: Azithromycin 500 MG in D5% in Water 250 ML IVPB SCH (20:01)
[2019-08-03] MEDS: Metoprolol XL (24 HR) Succ 25 MG TAB.ER.24H PO SCH (20:02)
[2019-08-04 01:15] LABS: Red Cell Distribution Width 21.9 % (11.5-14.5)
[2019-08-04 01:17] LABS: Hemoglobin 8.6 g/dL (12.9-16.9); Immature Platelets 6.1 % (1.1-6.1); Mean Corpuscular HGB Conc 30.7 g/dL (31.6-35.5); Mean Corpuscular Hemoglobin 33.2 pg (28.0-33.3); Mean Corpuscular Volume 108.1 fL (83.0-100.0); Mean Platelet Volume 11.1 fL (9.4-12.4); Red Blood Count 2.59 M/mcL (4.19-5.50); White Blood Count 9.1 K/mcL (4.3-11.1)
[2019-08-04 01:34] LABS: Calcium 8.2 mg/dL (8.6-10.3); Potassium 3.7 mEq/L (3.5-5.1)
[2019-08-04] MEDS: Pantoprazole 40 MG VIAL IVP SCH ×2 (04:40→17:56)
[2019-08-04] MEDS: Thiamine (B-1) 100 MG TABLET PO SCH (07:32)
[2019-08-04] MEDS: Sucralfate 1 GM TABLET PO SCH (07:32)
[2019-08-04] MEDS: Furosemide 40 MG/4 ML VIAL IVP SCH ×2 (07:32→20:11)
[2019-08-04] MEDS: Folic Acid 1 MG TABLET PO SCH (07:32)
[2019-08-04] MEDS: Spironolactone 25 MG TABLET PO SCH (07:32)
[2019-08-04] MEDS: Lactulose Oral Soln 20 GM/30 ML UDC PO SCH ×3 (07:32→21:00)
[2019-08-04] MEDS: Albumin 25% 25gram/100mL 25 GM/100 ML IV.SOLN IVPB SCH ×3 (09:20→23:05)
[2019-08-04] MEDS: Metoprolol XL (24 HR) Succ 25 MG TAB.ER.24H PO SCH (20:07)
[2019-08-05 02:40] LABS: Calcium 8.8 mg/dL (8.6-10.3); Potassium 3.7 mEq/L (3.5-5.1)
[2019-08-05] MEDS: Pantoprazole 40 MG VIAL IVP SCH (04:26)
[2019-08-05] MEDS: Ipratropium/Albuterol Neb 3 ML IH PRN (06:02)
[2019-08-05 07:49] VITALS: BP 127/62
[2019-08-05] MEDS: Albumin 25% 25gram/100mL 25 GM/100 ML IV.SOLN IVPB SCH (07:54)
[2019-08-05] MEDS: Furosemide 40 MG/4 ML VIAL IVP SCH (07:54)
[2019-08-05] MEDS: Thiamine (B-1) 100 MG TABLET PO SCH (07:55)
[2019-08-05] MEDS: Lactulose Oral Soln 20 GM/30 ML UDC PO SCH (07:55)
[2019-08-05] MEDS: Folic Acid 1 MG TABLET PO SCH (07:55)
[2019-08-05] MEDS: Spironolactone 25 MG TABLET PO SCH (07:55)
[2019-08-05] MEDS ORDERED: Albumin 25% 25gram/100mL 25 GM/100 ML IV.SOLN IVPB SCH (16:00)
== END 2019-08-05 15:10 | disposition home health service (06) | DRG 871 ==
LOC: 3ANU 16:40 → EMEROOARM 16:40 → 3ANU 20:19 → SUATTDRO 20:36 → 2NNU 07-31 11:23
PROVIDERS: ADMIT Internal Medicine; ATTEND Internal Medicine

== ENCOUNTER 2019-08-06 14:50 | Inpatient (IN) ==
[2019-08-06] MEDS ORDERED: Ondansetron 4 MG/2 ML VIAL IVP PRN (16:58)
[2019-08-06] MEDS ORDERED: Naloxone 0.4 MG/ML INJ IVP PRN (16:58)
[2019-08-06 17:58] LABS: Basophils # 0.1 K/mcL (0.0-0.2); Hematocrit 30.4 % (37.5-50.1); Hemoglobin 9.5 g/dL (12.9-16.9); Mean Corpuscular HGB Conc 31.3 g/dL (31.6-35.5); Mean Corpuscular Hemoglobin 32.6 pg (28.0-33.3); Mean Corpuscular Volume 104.5 fL (83.0-100.0); Mean Platelet Volume 10.3 fL (9.4-12.4); Red Blood Count 2.91 M/mcL (4.19-5.50); White Blood Count 9.5 K/mcL (4.3-11.1)
[2019-08-06 18:01] LABS: INR 2.7; Platelet Count 83 K/mcL (140-400); Prothrombin Time 30.3 Seconds (9.4-12.1)
[2019-08-06 18:16] LABS: Anisocytosis 1+ (Not Present); Eosinophils # 0.3 K/mcL (0.0-0.6); Lymphocytes # 1.2 K/mcL (0.6-4.6); Monocytes # 0.4 K/mcL (0.0-1.3); Neutrophils # 7.5 K/mcL (1.6-8.9); Platelet Estimate Slight Decrease (Normal)
[2019-08-06 18:17] LABS: Poikilocytosis 1+ (Not Present)
[2019-08-06 18:21] LABS: Alanine Aminotransferase 22 Units/L (7-52); Albumin 4.2 g/dL (3.5-5.7); Albumin/Globulin Ratio 2.3 (1.1-2.2); Alkaline Phosphatase 63 Units/L (34-104); Aspartate Amino Transferase 39 Units/L (13-39); BUN/Creatinine Ratio 14 (6-26); Bilirubin,Direct 3.2 mg/dL (0.0-0.2); Bilirubin,Indirect 3.8 mg/dL (0.0-1.0); Blood Urea Nitrogen 16 mg/dL (8-23); Carbon Dioxide 35 mEq/L (23-29); Chloride 101 mEq/L (98-107); Globulin 1.8 g/dL (2.4-3.5); Glucose 125 mg/dL (70-105); Lipase 200 Units/L (11-82); Magnesium 2.1 mg/dL (1.6-2.6); Osmolality,Calculated 297 (280-300); Phosphorous 1.6 mg/dL (2.7-4.5); Potassium 3.2 mEq/L (3.5-5.1); Sodium 142 mEq/L (136-145); Troponin I 0.07 ng/mL (< 0.04); eGFR For African Americans > 60 (> 60); eGFR For Non-African Americans > 60 (> 60)
[2019-08-06 18:35] LABS: Thyroid Stimulating Hormone 2.395 mcIU/mL (0.340-5.600)
[2019-08-06] MEDS ORDERED: Lactulose Oral Soln 20 GM/30 ML UDC PO PRN (20:36)
[2019-08-06] MEDS: Furosemide 40 MG/4 ML VIAL IVP SCH (21:27)
[2019-08-07 01:22] LABS: Adenovirus Not Detected (Not Detect); Bordetella Pertussis Not Detected (Not Detect); Chlamydophila pneumoniae Not Detected (Not Detect); Coronavirus 229E Not Detected (Not Detect); Coronavirus HKU1 Not Detected (Not Detect); Coronavirus NL63 Not Detected (Not Detect); Coronavirus OC43 Not Detected (Not Detect); Human Metapneumovirus Not Detected (Not Detect); Human Rhinovirus/Enterovirus Not Detected (Not Detect); Influenza A Subtype 2009 H1 Not Detected (Not Detect); Influenza B Not Detected (Not Detect); Mycoplasma pneumoniae Not Detected (Not Detect); Parainfluenza Virus 1 Not Detected (Not Detect); Parainfluenza Virus 2 Not Detected (Not Detect); Parainfluenza Virus 3 Not Detected (Not Detect); Parainfluenza Virus 4 Not Detected (Not Detect); Respiratory Syncytial Virus Not Detected (Not Detect)
[2019-08-07 03:07] LABS: Red Cell Distribution Width 20.8 % (11.5-14.5)
[2019-08-07 03:09] LABS: Basophils # 0.1 K/mcL (0.0-0.2); Basophils % 0.6 %; Eosinophils # 0.7 K/mcL (0.0-0.6); Eosinophils % 9.2 %; Hematocrit 27.5 % (37.5-50.1); Hemoglobin 8.5 g/dL (12.9-16.9); Immature Granulocytes % 0.9 % (0-4); Immature Platelets 5.2 % (1.1-6.1); Lymphocytes # 0.9 K/mcL (0.6-4.6); Lymphocytes % 11.2 %; Mean Corpuscular HGB Conc 30.9 g/dL (31.6-35.5); Mean Corpuscular Volume 103.4 fL (83.0-100.0); Mean Platelet Volume 11.1 fL (9.4-12.4); Monocytes # 1.1 K/mcL (0.0-1.3); Monocytes % 13.9 %; Neutrophils # 5.1 K/mcL (1.6-8.9); Red Blood Count 2.66 M/mcL (4.19-5.50); Segmented Neutrophils % 64.2 %
[2019-08-07 03:10] LABS: INR 2.5; Prothrombin Time 28.7 Seconds (9.4-12.1)
[2019-08-07 03:11] LABS: Platelet Count 71 K/mcL (140-400)
[2019-08-07 03:24] LABS: Platelet Estimate Decreased (Normal)
[2019-08-07 03:25] LABS: Anisocytosis 1+ (Not Present); Poikilocytosis 1+ (Not Present)
[2019-08-07 03:27] LABS: Albumin 3.6 g/dL (3.5-5.7); Albumin/Globulin Ratio 1.9 (1.1-2.2); Bilirubin,Direct 2.8 mg/dL (0.0-0.2); Bilirubin,Indirect 3.6 mg/dL (0.0-1.0); Bilirubin,Total 6.4 mg/dL (0.3-1.0); Globulin 1.9 g/dL (2.4-3.5); Total Protein 5.5 g/dL (6.4-8.9)
[2019-08-07 03:50] LABS: Folate 16.6 ng/mL (3.0-16.0)
[2019-08-07 03:58] LABS: BUN/Creatinine Ratio 14 (6-26); Blood Urea Nitrogen 15 mg/dL (8-23); Carbon Dioxide 37 mEq/L (23-29); Chloride 101 mEq/L (98-107); Potassium 3.3 mEq/L (3.5-5.1); Sodium 142 mEq/L (136-145); eGFR For African Americans > 60 (> 60)
[2019-08-07 03:59] LABS: % Iron Saturation 54 % (20-55); Calcium 8.5 mg/dL (8.6-10.3); Ferritin 268 ng/mL (20-250); Glucose 90 mg/dL (70-105); Iron 68 mcg/dL (65-175); Osmolality,Calculated 294 (280-300); Transferrin 90 mg/dL (203-362); eGFR For Non-African Americans > 60 (> 60)
[2019-08-07] MEDS: Furosemide 40 MG/4 ML VIAL IVP SCH ×2 (08:29→15:55)
[2019-08-07] MEDS: levoFLOXacin 500 MG/100 ML 500 MG/100 ML BAG IVPB SCH (15:55)
[2019-08-07] MEDS: Metoprolol XL (24 HR) Succ 25 MG TAB.ER.24H PO SCH (20:07)
[2019-08-08 04:04] LABS: Hemoglobin 8.6 g/dL (12.9-16.9)
[2019-08-08 04:06] LABS: Basophils # 0.1 K/mcL (0.0-0.2); Basophils % 0.6 %; Eosinophils # 0.7 K/mcL (0.0-0.6); Eosinophils % 7.4 %; Hematocrit 27.4 % (37.5-50.1); Immature Granulocytes % 0.9 % (0-4); Immature Platelets 5.6 % (1.1-6.1); Lymphocytes # 1.1 K/mcL (0.6-4.6); Lymphocytes % 11.8 %; Mean Corpuscular HGB Conc 31.4 g/dL (31.6-35.5); Mean Corpuscular Hemoglobin 32.2 pg (28.0-33.3); Mean Corpuscular Volume 102.6 fL (83.0-100.0); Mean Platelet Volume 10.9 fL (9.4-12.4); Monocytes # 1.2 K/mcL (0.0-1.3); Monocytes % 12.9 %; Red Blood Count 2.67 M/mcL (4.19-5.50); Red Cell Distribution Width 20.3 % (11.5-14.5); Segmented Neutrophils % 66.4 %
[2019-08-08 04:08] LABS: INR 2.4; Prothrombin Time 27.5 Seconds (9.4-12.1)
[2019-08-08 04:26] LABS: Albumin 3.5 g/dL (3.5-5.7); Albumin/Globulin Ratio 1.9 (1.1-2.2); BUN/Creatinine Ratio 11 (6-26); Bilirubin,Direct 2.6 mg/dL (0.0-0.2); Bilirubin,Indirect 3.4 mg/dL (0.0-1.0); Blood Urea Nitrogen 12 mg/dL (8-23); Calcium 8.8 mg/dL (8.6-10.3); Carbon Dioxide 38 mEq/L (23-29); Chloride 97 mEq/L (98-107); Globulin 1.8 g/dL (2.4-3.5); Glucose 92 mg/dL (70-105); Osmolality,Calculated 287 (280-300); Potassium 3.3 mEq/L (3.5-5.1); Sodium 139 mEq/L (136-145); Total Protein 5.3 g/dL (6.4-8.9); eGFR For African Americans > 60 (> 60); eGFR For Non-African Americans > 60 (> 60)
[2019-08-08 04:28] LABS: Platelet Count 88 K/mcL (140-400)
[2019-08-08 04:29] LABS: Anisocytosis 2+ (Not Present); Macrocytosis Present (Not Present); Platelet Estimate Decreased (Normal)
[2019-08-08] MEDS: Ascorbic Acid 500 MG TABLET PO SCH (08:49)
[2019-08-08] MEDS: Furosemide 40 MG/4 ML VIAL IVP SCH ×2 (08:49→17:25)
[2019-08-08] MEDS: Loratadine 10 MG TABLET PO SCH (08:50)
[2019-08-08] MEDS: levoFLOXacin 500 MG/100 ML 500 MG/100 ML BAG IVPB SCH (14:00)
[2019-08-08] MEDS: Lactobacillus 1 EACH CAP.SPRINK PO SCH (19:30)
[2019-08-08] MEDS: Metoprolol XL (24 HR) Succ 25 MG TAB.ER.24H PO SCH (19:30)
[2019-08-09 01:43] LABS: Basophils # 0.1 K/mcL (0.0-0.2); Basophils % 0.7 %; Eosinophils # 0.6 K/mcL (0.0-0.6); Eosinophils % 6.3 %; Hematocrit 28.5 % (37.5-50.1); Lymphocytes # 1.1 K/mcL (0.6-4.6); Lymphocytes % 11.6 %; Mean Corpuscular HGB Conc 31.6 g/dL (31.6-35.5); Mean Corpuscular Hemoglobin 32.1 pg (28.0-33.3); Mean Corpuscular Volume 101.8 fL (83.0-100.0); Mean Platelet Volume 10.8 fL (9.4-12.4); Monocytes # 1.2 K/mcL (0.0-1.3); Monocytes % 12.5 %; Neutrophils # 6.6 K/mcL (1.6-8.9); Platelet Count 101 K/mcL (140-400); Red Cell Distribution Width 20.9 % (11.5-14.5); Segmented Neutrophils % 67.9 %; White Blood Count 9.7 K/mcL (4.3-11.1)
[2019-08-09 02:06] LABS: BUN/Creatinine Ratio 9 (6-26); Blood Urea Nitrogen 10 mg/dL (8-23); Calcium 8.9 mg/dL (8.6-10.3); Carbon Dioxide 38 mEq/L (23-29); Chloride 97 mEq/L (98-107); Glucose 91 mg/dL (70-105); Magnesium 1.9 mg/dL (1.6-2.6); Osmolality,Calculated 289 (280-300); Potassium 3.6 mEq/L (3.5-5.1); Sodium 140 mEq/L (136-145); eGFR For African Americans > 60 (> 60); eGFR For Non-African Americans > 60 (> 60)
[2019-08-09] MEDS: Lactobacillus 1 EACH CAP.SPRINK PO SCH (08:25)
[2019-08-09] MEDS: Furosemide 40 MG/4 ML VIAL IVP SCH (08:26)
[2019-08-09] MEDS: Loratadine 10 MG TABLET PO SCH (08:26)
[2019-08-09] MEDS: Ascorbic Acid 500 MG TABLET PO SCH (08:26)
[2019-08-09] MEDS ORDERED: Lactulose Oral Soln 20 GM/30 ML UDC PO SCH (09:00)
[2019-08-09 12:39] VITALS: BP 133/71
== END 2019-08-09 15:10 | disposition home health service (06) | DRG 441 ==
LOC: 3BNU → SUATTDRO 16:21
PROVIDERS: ADMIT Pharmacist; ATTEND Pharmacist

== ENCOUNTER 2019-12-27 14:22 | Observation (INO) ==
[2019-12-27 15:07] LABS: INR 1.7; Prothrombin Time 18.8 Seconds (9.4-12.1)
[2019-12-27 15:09] LABS: Hemoglobin 8.8 g/dL (12.9-16.9); Immature Granulocytes % 0.3 % (0-4)
[2019-12-27 15:11] LABS: Basophils # 0.1 K/mcL (0.0-0.2); Basophils % 1.3 %; Eosinophils # 0.5 K/mcL (0.0-0.6); Eosinophils % 7.5 %; Hematocrit 25.8 % (37.5-50.1); Immature Platelets 3.6 % (1.1-6.1); Lymphocytes # 1.3 K/mcL (0.6-4.6); Mean Corpuscular HGB Conc 34.1 g/dL (31.6-35.5); Mean Corpuscular Hemoglobin 34.8 pg (28.0-33.3); Mean Platelet Volume 10.8 fL (9.4-12.4); Monocytes # 0.7 K/mcL (0.0-1.3); Neutrophils # 3.8 K/mcL (1.6-8.9); Red Blood Count 2.53 M/mcL (4.19-5.50); Red Cell Distribution Width 16.1 % (11.5-14.5); Segmented Neutrophils % 58.9 %; White Blood Count 6.4 K/mcL (4.3-11.1)
[2019-12-27 15:16] LABS: Platelet Count 88 K/mcL (140-400)
[2019-12-27 15:26] LABS: Alanine Aminotransferase 27 Units/L (7-52); Albumin 3.1 g/dL (3.5-5.7); Alkaline Phosphatase 108 Units/L (34-104); Aspartate Amino Transferase 44 Units/L (13-39); BUN/Creatinine Ratio 9 (6-26); Bilirubin,Direct 2.6 mg/dL (0.0-0.2); Bilirubin,Indirect 6.6 mg/dL (0.0-1.0); Bilirubin,Total 9.2 mg/dL (0.3-1.0); Blood Urea Nitrogen 12 mg/dL (8-23); Calcium 9.2 mg/dL (8.6-10.3); Carbon Dioxide 19 mEq/L (23-29); Chloride 112 mEq/L (98-107); Globulin 3.2 g/dL (2.4-3.5); Glucose 117 mg/dL (70-105); Lipase 113 Units/L (11-82); Osmolality,Calculated 291 (280-300); Potassium 3.8 mEq/L (3.5-5.1); Sodium 140 mEq/L (136-145); Total Protein 6.3 g/dL (6.4-8.9); Troponin I < 0.03 ng/mL (< 0.04); eGFR For African Americans > 60 (> 60); eGFR For Non-African Americans 51 (> 60)
[2019-12-27 15:35] LABS: Bilirubin,Urine Negative (Negative); Blood,Urine Negative (Negative); Clarity,Urine Clear (Clear); Color,Urine Yellow (Yellow); Glucose,Urine (UA) Normal (Normal); Ketones,Urine Negative (Negative); Leukocyte Esterase,Urine Negative (Negative); Nitrite,Urine Negative (Negative); PH,Urine 5.5 pH Units (5.0-8.0); Protein,Urine Negative (Neg-Trace); Specific Gravity,Urine 1.026 (1.010-1.025); Urobilinogen,Urine Normal (Normal)
[2019-12-27] MEDS ORDERED: Lactulose Oral Soln 20 GM/30 ML UDC PO ONE (15:37)
[2019-12-27] MEDS ORDERED: Ondansetron 4 MG/2 ML VIAL IVP PRN (17:24)
[2019-12-27] MEDS ORDERED: Naloxone 0.4 MG/ML INJ IVP PRN (17:24)
[2019-12-27] MEDS: Furosemide 20 MG TABLET PO SCH (19:00)
[2019-12-28 05:54] LABS: Immature Granulocytes % 0.2 % (0-4); Mean Corpuscular Volume 101.8 fL (83.0-100.0)
[2019-12-28 05:57] LABS: Basophils # 0.1 K/mcL (0.0-0.2); Eosinophils # 0.4 K/mcL (0.0-0.6); Eosinophils % 7.8 %; Hematocrit 22.5 % (37.5-50.1); Hemoglobin 7.6 g/dL (12.9-16.9); Immature Platelets 2.6 % (1.1-6.1); Lymphocytes % 25.8 %; Mean Corpuscular HGB Conc 33.8 g/dL (31.6-35.5); Mean Corpuscular Hemoglobin 34.4 pg (28.0-33.3); Monocytes % 14.3 %; Neutrophils # 2.7 K/mcL (1.6-8.9); Red Blood Count 2.21 M/mcL (4.19-5.50); Segmented Neutrophils % 50.9 %; White Blood Count 5.2 K/mcL (4.3-11.1)
[2019-12-28 05:58] LABS: Lymphocytes # 1.3 K/mcL (0.6-4.6); Monocytes # 0.7 K/mcL (0.0-1.3)
[2019-12-28 05:59] LABS: INR 1.8; Platelet Count 72 K/mcL (140-400); Prothrombin Time 20.2 Seconds (9.4-12.1)
[2019-12-28 06:17] LABS: Albumin 2.6 g/dL (3.5-5.7); Bilirubin,Total 6.1 mg/dL (0.3-1.0); Calcium 8.8 mg/dL (8.6-10.3); Globulin 2.6 g/dL (2.4-3.5); Potassium 3.8 mEq/L (3.5-5.1); Total Protein 5.2 g/dL (6.4-8.9)
[2019-12-28] MEDS: Aspirin Enteric Coated 81 MG Tablet PO SCH (07:47)
[2019-12-28] MEDS: Lactulose Oral Soln 20 GM/30 ML UDC PO SCH ×3 (07:48→19:40)
[2019-12-28] MEDS: Furosemide 20 MG TABLET PO SCH ×2 (07:48→16:33)
[2019-12-28] MEDS: Ascorbic Acid 500 MG TABLET PO SCH (07:48)
[2019-12-28] MEDS ORDERED: Lactulose Oral Soln 20 GM/30 ML UDC PO ONE (17:00)
[2019-12-29 07:12] LABS: Hemoglobin 7.6 g/dL (12.9-16.9); Red Cell Distribution Width 15.8 % (11.5-14.5)
[2019-12-29 07:13] LABS: Hematocrit 22.8 % (37.5-50.1); Immature Platelets 3.7 % (1.1-6.1); Mean Corpuscular HGB Conc 33.3 g/dL (31.6-35.5); Mean Corpuscular Hemoglobin 34.1 pg (28.0-33.3); Mean Corpuscular Volume 102.2 fL (83.0-100.0); Mean Platelet Volume 11.1 fL (9.4-12.4); Red Blood Count 2.23 M/mcL (4.19-5.50); White Blood Count 5.2 K/mcL (4.3-11.1)
[2019-12-29 07:33] LABS: BUN/Creatinine Ratio 7 (6-26); Blood Urea Nitrogen 10 mg/dL (8-23); Calcium 8.9 mg/dL (8.6-10.3); Carbon Dioxide 21 mEq/L (23-29); Chloride 114 mEq/L (98-107); Glucose 89 mg/dL (70-105); Osmolality,Calculated 293 (280-300); Potassium 3.5 mEq/L (3.5-5.1); Sodium 142 mEq/L (136-145); eGFR For African Americans > 60 (> 60); eGFR For Non-African Americans 54 (> 60)
[2019-12-29] MEDS: Lactulose Oral Soln 20 GM/30 ML UDC PO SCH (09:12)
[2019-12-29] MEDS: Ascorbic Acid 500 MG TABLET PO SCH (09:12)
[2019-12-29] MEDS: Aspirin Enteric Coated 81 MG Tablet PO SCH (09:12)
[2019-12-29] MEDS: Furosemide 20 MG TABLET PO SCH (09:12)
[2019-12-29 11:24] VITALS: BP 134/65
== END 2019-12-29 12:19 | disposition home or self-care (01) ==
LOC: EMEROOARM 14:22 → 3ANU 14:22 → SUATTDRO 16:19 → 3ANU 16:24
PROVIDERS: ADMIT Student in an Organized Health Care Education/Training Program; ATTEND Internal Medicine

== ENCOUNTER 2020-09-23 14:09 | Observation (INO) ==
[2020-09-23] MEDS ORDERED: 0.9 % Sodium Chloride 500 ML IVC ONE (15:40)
[2020-09-23 15:57] LABS: Basophils % 0.3 %; Eosinophils % 0.3 %; Hematocrit 30.4 % (37.5-50.1); Hemoglobin 10.1 g/dL (12.9-16.9); Immature Granulocytes % 0.8 % (0-4); Lymphocytes # 0.4 K/mcL (0.6-4.6); Lymphocytes % 9.7 %; Mean Corpuscular HGB Conc 33.2 g/dL (31.6-35.5); Mean Corpuscular Hemoglobin 29.8 pg (28.0-33.3); Mean Corpuscular Volume 89.7 fL (83.0-100.0); Mean Platelet Volume 11.9 fL (9.4-12.4); Monocytes # 0.5 K/mcL (0.0-1.3); Monocytes % 12.9 %; Neutrophils # 2.8 K/mcL (1.6-8.9); Platelet Count 140 K/mcL (140-400); Red Blood Count 3.39 M/mcL (4.19-5.50); Red Cell Distribution Width 14.4 % (11.5-14.5); White Blood Count 3.7 K/mcL (4.3-11.1)
[2020-09-23 16:15] LABS: Calcium 8.5 mg/dL (8.6-10.3); Potassium 4.9 mEq/L (3.5-5.1)
[2020-09-23 16:47] LABS: Bilirubin,Urine Negative (Negative); Blood,Urine Negative (Negative); Clarity,Urine Turbid (Clear); Color,Urine Yellow (Yellow); Glucose,Urine (UA) Normal (Normal); Hyaline Casts,Urine Many per lpf (None Seen); Ketones,Urine Negative (Negative); Leukocyte Esterase,Urine Negative (Negative); Mucus,Urine Few per lpf (None-Few); Nitrite,Urine Negative (Negative); PH,Urine 5.5 pH Units (5.0-8.0); Protein,Urine 50 mg/dL (Neg-Trace); Specific Gravity,Urine 1.025 (1.010-1.025); Squamous Epithelial Cell,Urine Few per hpf (None-Few); Urobilinogen,Urine Normal (Normal)
[2020-09-23 17:15] LABS: Albumin/Globulin Ratio 1.6 (1.1-2.2); Bilirubin,Direct 0.1 mg/dL (0.0-0.2); Bilirubin,Indirect 0.5 mg/dL (0.0-1.0); Bilirubin,Total 0.6 mg/dL (0.3-1.0); Globulin 2.5 g/dL (2.4-3.5); Total Protein 6.5 g/dL (6.4-8.9)
[2020-09-23] MEDS ORDERED: Ondansetron 4 MG/2 ML VIAL IVP PRN (17:55)
[2020-09-23] MEDS ORDERED: Melatonin 3 MG TABLET PO PRN (17:55)
[2020-09-23] MEDS ORDERED: Naloxone 0.4 MG/ML INJ IVP PRN (17:55)
[2020-09-23] MEDS ORDERED: Acetaminophen 325 MG TABLET PO PRN (17:55)
[2020-09-23 17:57] LABS: Magnesium 2.2 mg/dL (1.6-2.6)
[2020-09-23 18:56] LABS: Sodium, Urine 13.5 mEq/L
[2020-09-23 19:41] LABS: VBG HCO3 19 mEq/L (21-27); VBG PCO2 37 mmHg (41-51); VBG PO2 25 mmHg (25-50)
[2020-09-23] MEDS: Mycophenolate Sodium (DR) 180 MG TABLET.DR PO SCH (19:57)
[2020-09-23] MEDS ORDERED: Metoprolol XL (24 HR) Succ 25 MG TAB.ER.24H PO SCH (21:00)
[2020-09-23] MEDS: *HR* Heparin 5,000 UNIT/ML VIAL SQ SCH (21:29)
[2020-09-23 21:49] LABS: Uric Acid 10.5 mg/dL (2.3-7.6)
[2020-09-24] MEDS: *HR* Heparin 5,000 UNIT/ML VIAL SQ SCH ×2 (05:27→14:13)
[2020-09-24 06:38] LABS: Hematocrit 26.3 % (37.5-50.1); Hemoglobin 8.7 g/dL (12.9-16.9); Mean Corpuscular HGB Conc 33.1 g/dL (31.6-35.5); Mean Corpuscular Hemoglobin 29.3 pg (28.0-33.3); Mean Corpuscular Volume 88.6 fL (83.0-100.0); Mean Platelet Volume 11.2 fL (9.4-12.4); Platelet Count 119 K/mcL (140-400); Red Blood Count 2.97 M/mcL (4.19-5.50); Red Cell Distribution Width 14.3 % (11.5-14.5); White Blood Count 3.2 K/mcL (4.3-11.1)
[2020-09-24 07:01] LABS: Magnesium 2.1 mg/dL (1.6-2.6); Phosphorous 2.5 mg/dL (2.7-4.5); Potassium 5.1 mEq/L (3.5-5.1)
[2020-09-24] MEDS ORDERED: Aspirin Enteric Coated 81 MG Tablet PO SCH (09:00)
[2020-09-24] MEDS: Mycophenolate Sodium (DR) 180 MG TABLET.DR PO SCH (09:27)
[2020-09-24 11:18] VITALS: BP 108/62
[2020-09-24 12:15] LABS: Adenovirus F 40/41 PCR Not detected (Not detect); Astrovirus PCR Not detected (Not detect); C.difficile Toxin A/B Gene PCR Not detected (Not detect); Campylobacter by PCR Not detected (Not detect); Cryptosporidium by PCR Not detected (Not detect); Cyclospora cayetanensis PCR Not detected (Not detect); E. coli O157 by PCR Not detected (Not detect); Entamoeba histolytica PCR Not detected (Not detect); Enteroaggregative E.coli(EAEC) Not detected (Not detect); Enteropathogenic E.coli(EPEC) Not detected (Not detect); Enterotoxigenic E.coli (ETEC) Not detected (Not detect); Giardia lamblia PCR Not detected (Not detect); Norovirus GI/GII PCR Not detected (Not detect); Plesiomonas shigelloides PCR Not detected (Not detect); Rotavirus A PCR Not detected (Not detect); Salmonella PCR Not detected (Not detect); Sapovirus PCR Not detected (Not detect); Shig/EnteroinvasiveE coli EIEC Not detected (Not detect); Shigalike tox-prod E coli STEC Not detected (Not detect); Vibrio PCR Not detected (Not detect); Vibrio cholerae PCR Not detected (Not detect); Yersinia enterocolitica PCR Not detected (Not detect)
[2020-09-24 13:46] LABS: Calcium 8.2 mg/dL (8.6-10.3)
== END 2020-09-24 14:55 | disposition home or self-care (01) ==
LOC: 2NENU 14:09 → EMEROOARM 14:09 → SUATTDRO 17:59 → 2NENU 18:54
PROVIDERS: ADMIT Internal Medicine; ATTEND Internal Medicine